=== PATIENT | male | born 1965 | race Caucasian/White ===

== ENCOUNTER → 2018-02-07 07:59 | Outpatient (CLI) | payer OTHER, SELFPAY ==
[2017-12-11 15:38] VITALS: BMI 34.8
[2018-02-07 09:21] LABS: Absolute Neutrophil Count 3.7 X10^3/uL (2.0-7.7); Basophil# 0.01 X10^3/uL; Basophil% 0.1 % (0-1); Eosinophil# 0.17 X10^3/uL; Eosinophils% 2.5 % (0-5); Hematocrit 46.4 % (40-54); Hemoglobin 16.2 g/dl (13.0-16.5); Lymphocyte % 32.6 % (19-41); Mean Corp Hgb Conc 34.9 g/gl (32-36); Mean Corpuscular Volume 88.9 fL (80-94); Mean Platelet Vol. 10.8 fl (6.2-12.0); Monocyte# 0.64 X10^3/uL; Monocyte% 9.5 % (0-10); Platelet Count 179 K/mm3 (150-450); RBC Distribution Width CV 12.1 % (11.6-14.6); RBC Distribution Width SD 39.3 fl (35.1-43.9); Red Blood Count 5.22 M/mm3 (4.6-6.2); White Blood Count 6.7 K/mm3 (4.4-11.0)
[2018-02-07 09:23] LABS: POSITIVE COUNT NO; POSITIVE DIFFERENTIAL NO; POSITIVE MORPHOLOGY NO
[2018-02-07 09:41] LABS: Microalbumin,Random Urine 29.7 mg/L (NO RANGE EST.); Microalbumin:Creatinine Ratio 22.3 mg/g CRE (<30 mg/g CRE)
[2018-02-07 09:51] LABS: Hemoglobin A1c 8.1 % (4.2-6.3)
[2018-02-07 09:54] LABS: AST(SGOT) 16 U/L (15-37); Alanine Aminotransfer ALT/SGPT 20 U/L (16-61); Albumin, Serum 3.7 g/dL (3.2-5.0); Alkaline Phosphatase 70 U/L (45-117); Anion Gap 7 (5-15); BUN 10 mg/dL (7-18); BUN/Creat Ratio 14.2 RATIO (10-20); Calcium,Total 8.4 mg/dL (8.5-10.1); Chloride 103 mmol/L (98-107); EST Glomerular Filtration Rate 124 mL/min (>60); Est Glom Filt Rate - Afr Amer 150 mL/min (>60); Globulin 3.6 g/dL (2.2-4.2); Glucose 178 mg/dL (74-106); Protein, Total 7.3 g/dL (6.4-8.2); Sodium Level 139 mmol/L (136-145); Thyroid Stim Hormone (TSH) 1.18 uIU/mL (0.358-3.74)
== END ==
PROVIDERS: Family Provider Family Medicine; PCP Family Medicine; Referring Provider Family Medicine; Visit Provider Family Medicine
DX: I25.10 Atherosclerotic heart disease of native coronary artery without angina pectoris (principal); E11.319 Type 2 diabetes mellitus with unspecified diabetic retinopathy without macular edema
CPT/HCPCS: 36415; 80053; 82043; 82570; 83036; 84403; 84443; 85025

== ENCOUNTER → 2018-04-03 10:45 | Outpatient (CLI) | payer OTHER, SELFPAY ==
--- NOTE | 2018-04-03 10:50 | US_ITS ---
STUDY: ABDOMINAL ULTRASOUND - RIGHT UPPER QUADRANT REASON FOR VISIT: Male, 52 years old. Elevated bilirubin. TECHNIQUE: Ultrasound evaluation of the right upper quadrant was performed with real-time and static crump-scale imaging. TECHNICAL QUALITY: Adequate. COMPARISON: None. FINDINGS: Liver: The liver measures 17.5 cm. There is coarsened echotexture with increased echogenicity consistent with fatty infiltration. The bile ducts are within normal limits. There is hepatic color flow. The direction of portal flow is hepatopetal. There is no demonstrated mass lesion. Gallbladder: Normal distended gallbladder. The gallbladder wall measures 3 mm. There is a negative sonographic Rogers's sign. There is no pericholecystic fluid. There are no gallstones. Common Bile Duct (C.B.D.): The common bile duct measures 3 mm. Pancreas: Normal size of the head, body and tail of the pancreas. There is normal echogenicity of the pancreas. There is no demonstrated pancreatic mass or cyst. Right Kidney: Normal size of the right kidney. The right kidney measures 11.4 cm. Normal renal cortex. The right cortex measures 2.1 cm. There is no demonstrated renal mass or cyst. There is no right hydronephrosis. US/Liver IMPRESSION: Fatty liver. Normal gallbladder. Electronically Signed: Jason Kim MD at 7:32 EST , Service support ,
== END ==
PROVIDERS: Family Provider Family Medicine; PCP Family Medicine; Referring Provider Family Medicine; Visit Provider Family Medicine
DX: K76.0 Fatty (change of) liver, not elsewhere classified (principal)
CPT/HCPCS: 76705

== ENCOUNTER → 2018-12-31 07:36 | Outpatient (CLI) | payer OTHER, SELFPAY ==
[2018-06-20 06:49] VITALS: BMI 34.9
--- NOTE | 2018-12-31 07:38 | ECHOCS_ITS ---
Reason For Study: Murmur Procedure This was a 2D Doppler, Color Flow transthoracic echocardiogram. The study was technically difficult. Contrast injection was performed. Parasternal [place] images taken from Subcostal window. Exam performed in department. Left Ventricle Normal LV size. Moderate concentric left ventricular hypertrophy. Left ventricular systolic function is normal. The estimated ejection fraction is 60 %. Transmitral doppler flow suggestive of impaired relaxation of left ventricle. No regional wall motion abnormalities noted. Right Ventricle Normal RV size. Normal systolic function. Atria Normal left atrium. Normal right atrium. No doppler evidence for ASD. Mitral Valve There is no mitral annular calcification. Normal mitral valve. Trivial mitral valve insufficiency. Tricuspid Valve Normal tricuspid valve. Trivial tricuspid valve insufficiency. Unable to estimate RV systolic pressure/pulmonary artery pressure due to technically difficult study. Aortic Valve The aortic valve is not well visualized. Mild focal aortic valve calcification. Moderate aortic stenosis. Pulmonic Valve The pulmonic valve is not well visualized. Great Vessels The aortic root is not well visualized. Pericardium/Pleural No pericardial effusion. Medication 22 gauge I.V. with prn adaptor inserted into right arm. Diluted definity 2ml given slow IV push to enhance endocardial definition. MMode/2D Measurements & Calculations LVIDd: 4.5 cm IVSd: 1.3 cm LVOT diam: 2.0 cm LVIDs: 3.3 cm LVPWd: 1.6 cm RVDd: 2.6 cm FS: 27.2 % LVOT area: 3.1 cm2 LA dimension: 3.8 cm LAV(MOD-bp): 38.9 ml LA A4 area: 16.0 cm2 LAV(MOD-bp) Indexed: 18.0 ml/m2 LAV(MOD-sp2): 37.5 ml LAV(MOD-sp4): 38.2 ml RA A4 area: 15.4 cm2 Time Measurements MV dec time: 0.25 sec Doppler Measurements & Calculations MV E max cyrus: 74.8 cm/sec Lat Peak E' Cyrus: 7.2 cm/sec Med Peak E' Cyrus: 5.0 cm/sec MV A max cyrus: 114.0 cm/sec E/E' lat: 10.3 E/E' med: 15.0 MV E/A: 0.66 MV V2 max: 123.3 cm/sec MV P1/2t max cyrus: 89.6 cm/sec Ao V2 max: 308.2 cm/sec MV max P.1 mmHg MV P1/2t: 119.8 msec Ao max P.0 mmHg MV V2 mean: 69.1 cm/sec MV dec slope: 219.0 cm/sec2 Ao V2 mean: 193.4 cm/sec MV mean P.2 mmHg Ao mean P.1 mmHg MV V2 VTI: 34.8 cm MVA(P1/2t): 1.8 cm2 Ao V2 VTI: 66.5 cm MVA(VTI): 1.9 cm2 YAMILE(I,D): 0.97 cm2 YAMILE(V,D): 0.87 cm2 LV V1 max: 86.7 cm/sec SV(LVOT): 64.8 ml PA V2 max: 99.2 cm/sec LV V1 max P.0 mmHg LV V1 mean P.5 mmHg LV V1 mean: 57.8 cm/sec LV V1 VTI: 20.9 cm Interpretation Summary The study was technically difficult. Contrast injection was performed. Left ventricular systolic function is normal. The estimated ejection fraction is 60 %. Moderate concentric left ventricular hypertrophy. Trivial mitral valve insufficiency. Trivial tricuspid valve insufficiency. Mild focal aortic valve calcification. Moderate aortic stenosis. Unable to estimate RV systolic pressure/pulmonary artery pressure due to technically difficult study. Transmitral doppler flow suggestive of impaired relaxation of left ventricle Ordering Physician: Feliciano Warren Referring Physician: Austin Lubin Performed By: Bulmaro Nam RCS
== END ==
PROVIDERS: Family Provider Family Medicine; PCP Family Medicine; Referring Provider Internal Medicine Cardiovascular Disease; Visit Provider Internal Medicine Cardiovascular Disease
DX: I25.10 Atherosclerotic heart disease of native coronary artery without angina pectoris (principal); I10 Essential (primary) hypertension; R01.1 Cardiac murmur, unspecified; Z98.61 Coronary angioplasty status
CPT/HCPCS: 93306; Q9957; A4216; C8929

== ENCOUNTER → 2019-08-11 17:10 | Outpatient (CLI) | payer OTHER, SELFPAY ==
[2019-08-11 17:10] VITALS: BMI 34.9
--- NOTE | 2019-08-11 17:14 | RAD_ITS ---
STUDY: X-RAY RIGHT FOOT, TOE REASON FOR EXAM: Male, 53 years old. DIABETIC ULCER TO 1ST TOE, STARTED 6 MONTHS AGO TECHNIQUE: 3 view(s) of the toe were obtained. COMPARISON: None. FINDINGS: Normal visualized metatarsus. Normal metatarsophalangeal (M.T.P) joint. Normal interphalangeal joints. Normal phalanges and interphalangeal joints. The soft tissue structures are unremarkable. RAD/Toe(s) Min 2 Views IMPRESSION: Normal x-ray of the toe. Electronically Signed: Ruslan Downs MD at 17:29 EDT , Service support ,
== END ==
PROVIDERS: PCP Family Medicine; Referring Provider Family Medicine; Visit Provider Family Medicine
DX: E11.621 Type 2 diabetes mellitus with foot ulcer (principal); L97.519 Non-pressure chronic ulcer of other part of right foot with unspecified severity
CPT/HCPCS: 73660

== ENCOUNTER → 2019-08-12 16:42 | Outpatient (CLI) | payer OTHER, SELFPAY ==
[2019-08-11 17:10] VITALS: BMI 34.9
[2019-08-12 17:40] LABS: Absolute Lymphocyte Count 2.07 X10^3/uL (0.83-4.51); Absolute Neutrophil Count 3.2 X10^3/uL (2.0-7.7); Basophil# 0.01 X10^3/uL; Basophil% 0.2 % (0-1); Eosinophil# 0.09 X10^3/uL; Eosinophils% 1.5 % (0-5); Hematocrit 42.7 % (40-54); Hemoglobin 14.5 g/dL (13.0-16.5); Lymphocyte # 2.07 X10^3/ul (4.0); Lymphocyte % 35.4 % (19-41); Mean Corpuscular Hgb 30.3 pg (27.0-32.0); Mean Corpuscular Volume 89.3 fL (80-94); Mean Platelet Vol. 11.2 fl (6.2-12.0); Monocyte# 0.52 X10^3/uL; Monocyte% 8.9 % (0-10); NRBC Flagged by Analyzer 0 % (0-5); Neutrophil # 3.15 X10^3/uL (2.7-7.7); Neutrophil % 53.8 % (47-70); Platelet Count 148 K/mm3 (150-450); RBC Distribution Width CV 12.1 % (11.6-14.6); RBC Distribution Width SD 39.5 fl (35.1-43.9); Red Blood Count 4.78 M/mm3 (4.6-6.2); White Blood Count 5.9 K/mm3 (4.4-11.0)
[2019-08-12 17:52] LABS: Erythrocyte Sedimentation Rate 10 mm/hr (0-20)
[2019-08-12 17:58] LABS: Vitamin D,25 Hydroxy 14.2 ng/mL
[2019-08-12 17:59] LABS: ALB/GLOB Ratio 0.9 RATIO (0.9-2.4); AST(SGOT) 13 U/L (15-37); Alanine Aminotransfer ALT/SGPT 21 U/L (16-61); Albumin, Serum 3.4 g/dL (3.2-5.0); Alkaline Phosphatase 80 U/L (45-117); Anion Gap 8 (5-15); BUN 16 mg/dL (7-18); BUN/Creat Ratio 18.7 RATIO (10-20); CRP 3.57 mg/L (0.0-3.0); Calcium,Total 8.9 mg/dL (8.5-10.1); Chloride 102 mmol/L (98-107); Creatinine, Serum 0.86 mg/dL (0.70-1.30); EST Glomerular Filtration Rate 98 mL/min (>60); Est Glom Filt Rate - Afr Amer 119 mL/min (>60); Globulin 3.6 g/dL (2.2-4.2); Glucose 242 mg/dL (74-106); Potassium 3.9 mmol/L (3.5-5.1); Sodium Level 136 mmol/L (136-145)
[2019-08-12 18:02] LABS: Hemoglobin A1c 10.6 % (3.8-5.6)
== END ==
PROVIDERS: PCP Family Medicine; Referring Provider Family Medicine; Visit Provider Family Medicine
DX: E11.621 Type 2 diabetes mellitus with foot ulcer (principal); L97.509 Non-pressure chronic ulcer of other part of unspecified foot with unspecified severity; E11.319 Type 2 diabetes mellitus with unspecified diabetic retinopathy without macular edema
CPT/HCPCS: 36415; 80053; 82306; 83036; 85025; 85652; 86140

== ENCOUNTER 2019-08-20 08:00 | Outpatient (RCR) | payer OTHER, SELFPAY ==
[2019-08-11 17:10] VITALS: BMI 34.9
[2019-08-13 08:34] VITALS: BP 178/94; PULSE 57; RESP 18; TEMP 36.2; BMI 34.9
--- NOTE | 2019-08-13 12:49 | HP.PCM_ITS ---
(1) Type 2 diabetes mellitus with diabetic polyneuropathy Status: Acute Code(s): E11.42 - Type 2 diabetes mellitus with diabetic polyneuropathy (2) Chronic ulcer of right foot with fat layer exposed Status: Chronic Code(s): L97.512 - Non-pressure chronic ulcer of other part of right foot with fat layer exposed (3) Hallux limitus of right foot Status: Acute Code(s): M20.5X1 - Other deformities of toe(s) (acquired), right foot (4) Chronic malnutrition Status: Chronic Code(s): E46 - Unspecified protein-calorie malnutrition (5) Other specified peripheral vascular diseases Status: Suspected Code(s): I73.89 - Other specified peripheral vascular diseases (6) Venous insufficiency Status: Suspected Code(s): I87.2 - Venous insufficiency (chronic) (peripheral) (7) Bilateral lower extremity edema Status: Chronic Code(s): R60.0 - Localized edema History of Present Illness Date of Service: 08/13/19 Chief Complaint: Right great toe ulcer History of Wound: This 53-year-old male with multiple comorbidities including diabetes and hypertension presents for chronic right great toe ulcer. The onset of his ulcer is over 1 month. He denies trauma. He denies claudication. He does have some rest paresthesias. He denies odor or redness. He denies fever, chill, nausea, vomiting. Past Medical History Past Medical History: Chronic Problems (Last Reviewed 01/22/19 @ 16:08 by Gege Mclean) Chronic ulcer of right foot with fat layer exposed (Chronic) Chronic malnutrition (Chronic) Bilateral lower extremity edema (Chronic) Presence of stent in coronary artery (Chronic ~04/01/07) PTCA/BMS to proc CX and PTCA/BMS to prox LAD 04/01/07 Type 2 diabetes mellitus (Chronic) Atherosclerotic heart disease of [place] coronary artery without angina pectoris (Chronic) Pure hypercholesterolemia (Chronic) Essential hypertension (Chronic) Long-term use of high-risk medication (Chronic) JOSEPH (obstructive sleep apnea) (Chronic) Snoring (Chronic) Surgical History: - - Cardiac stent placement x2 Allergies/Adverse Reactions: Allergies Penicillins Adverse Reaction (Severe, Verified 06/17/19 06:35) Unknown Home Medications: Ambulatory Orders Medication Instructions Recorded aspirin 81 mg tablet,delayed 81 mg PO QDAY 03/08/17 release glipizide 5 mg tablet 5 mg PO BID 03/08/17 lisinopril 5 mg tablet 5 mg PO QDAY #90 tab 09/21/17 vitamins A,C,A-pjko-beumyx 7,160 2 tab PO BID 12/11/17 unit-113 mg-100 unit tablet pravastatin 40 mg tablet 40 mg PO QHS #30 tab 08/13/18 metoprolol tartrate 50 mg tablet 50 mg PO BID #180 tab 09/20/18 empagliflozin 10 mg tablet 10 mg PO DAILY 01/22/19 metformin 1,000 mg tablet 1,000 mg PO BID 30 Days #60 tab 01/22/19 pioglitazone 15 mg tablet 15 mg PO DAILY 01/22/19 Glimepiride 2 mg PO 08/13/19 Smoking Status: Never smoker Tobacco Use: Non-smoker Drugs: None Review of Systems Constitutional: Denies: Chills, Fever, Fatigue HEENT: Denies: Sore Throat Cardiovascular: Denies: Chest Pain, Claudication Respiratory: Denies: Cough, Shortness of Breath Gastrointestinal: Denies: Nausea, Vomiting Neurological: Denies: Incoordination, Tingling - Physical Exam Vital Signs Temp Pulse Resp BP 97.2 F L 57 L 18 178/94 H 08/13/19 08:34 08/13/19 08:34 08/13/19 08:34 08/13/19 08:34 General: Alert, Oriented x3, Cooperative Extremities: No cyanosis, Capillary Refill Less than 3 Seconds, No Calf Tenderness, Diminished Peripheral Pulses, Edema Skin: Ulcer/ Wound - The ulcer to the plantar hallux has a base of granular and fibrous tissue. The peripheral callus is noted in the adjacent skin is hairless and atrophic. There is no purulence, erythema, streaking, odor, infection. There is no deep probing or bone exposure Wound Measurements and Assessment WC - Nurse 1 - General Ulcer Measurement Start: 08/13/19 08:34 Freq: Status: Active Protocol: Activity Type Activity Date Activity User E-Sign Co-Sign Detail Recorded Client Recorded Date Recorded By Document 08/13/19 08:34 DL [id number] 08/13/19 08:44 DL 08/13/19 08:34 Wound Center Nurse 1 [Ulcer Assessment] #1 R Grt Toe -Current Size (cm) - Length 0.7 -Current Size (cm) - Width 0.4 -Current Size (cm) - Depth 0.3 -Total Square Cm 0.28 -Photo Taken Yes -Undermining/Tunneling Starts (O' 6 clock) -Undermining/Tunneling Ends (O'clock) 12 -Maximum Distance (cm) 0.3 -Exudate Amt Small -Exudate Type Sanguineous -Wound Margin Thickened -Granulation Amt Small (1-33%) -Granulation Quality Red -Necrosis Amt Small (1-33%) -Necrotic Tissue Type Adherent Slough -Structure Exposed N/A -Texture (Lisa-wound Skin Appearance) Callus -Moisture (Lisa-wound Skin Appearance Dry/Scaly ) -Color (Lisa-wound Skin Appearance) No Abnormality -Temperature (Lisa-wound Skin No Abnormality Appearance) (Pt Warm) -Tenderness on Palpation (Lisa-wound No Skin Appearance) -Ulcer Cleansing Rinsed/ Irrigated with Saline -Foul Odor after Cleansing No -Anesthetic Used 4% Lidocaine Solution WC - Nurse 2 - General Ulcer CM Notes Start: 08/13/19 08:34 Freq: Status: Active Protocol: Activity Type Activity Date Activity User E-Sign Co-Sign Detail Recorded Client Recorded Date Recorded By Document 08/13/19 09:14 GEOVANI [id number] 08/13/19 09:20 GEOVANI 08/13/19 09:14 Wound Center Nurse 2 [Procedure/Treatment] -Time 09:14 -Correct Patient Yes -Correct Side, Site, Position Yes -Correct Procedure Yes -Procedure Performed Yes -Type of Procedure Debridement -Clinical Debridement Subcutaneous -Post Debridement Size (cm) - Length 0.8 -Post Debridement Size (cm) - Width 1.5 -Post Debridement Size (cm) - Depth 0.2 -Total Square Cm 1.20 -Wound/Ulcer Outcome Not Healed -Ulcer Cleansing Rinsed/ Irrigated with Saline -Foul Odor after Cleansing No -Bioengineered Tissue No -Bleeding Controlled with Pressure -Offloading Yes -Type of Offloading Surgical Shoe -Treatment Response Procedure Tolerated Well [See Physician Procedure note for Specifics] Pain Scale: 0-10 Numeric [Pain] -Is Patient Pain Free? Yes Musculoskeletal: No Tenderness to Palpation of Joints or Extremities, Muscle Wasting, - - Full muscle strength of the ankle and digits. No pain or crepitus with passive manipulation of the hallux and phalangeal joint or metatarsophalang eal joint. No bogginess or fluctuance. Compartments remain soft to right lower extremity. There is decreased flow to first metatarsal phalangeal joint range of motion consistent hallux limitus noted Neurological: - - Lack of epicritic sensation light touch consistent with neuropathy status Psych/Mental Status: Normal Affect, Appropriate Debridement Note Post-Debridement Measurements/Treatment WC - Nurse 2 - General Ulcer CM Notes Start: 08/13/19 08:34 Freq: Status: Active Protocol: Activity Type Activity Date Activity User E-Sign Co-Sign Detail Recorded Client Recorded Date Recorded By Document 08/13/19 09:14 [id number] 08/13/19 09:20 GEOVANI 08/13/19 09:14 Wound Center Nurse 2 #1 R Grt Toe -Time 09:14 -Correct Patient Yes -Correct Side, Site, Position Yes -Correct Procedure Yes -Procedure Performed Yes -Type of Procedure Debridement -Clinical Debridement Subcutaneous -Post Debridement Size (cm) - Length 0.8 -Post Debridement Size (cm) - Width 1.5 -Post Debridement Size (cm) - Depth 0.2 -Total Square Cm 1.20 -Wound/Ulcer Outcome Not Healed -Ulcer Cleansing Rinsed/ Irrigated with Saline -Foul Odor after Cleansing No -Bioengineered Tissue No -Bleeding Controlled with Pressure -Offloading Yes -Type of Offloading Surgical Shoe -Treatment Response Procedure Tolerated Well Pain Scale: 0-10 Numeric Is Patient Pain Free? Yes Wound debrided: plantar hallux Laterality: Right Wound Grade/Stage: grade 1 Type of Debridement: Excisional debridement Anesthesia Used: 5% Lidocaine Gel Depth: in the subcutaneous layer Percentage of wound debrided: 100 Tissue Removed: fibrous, devitalized subcutaneous, biofilm, slough Severity: Fat Layer Exposed Amount of bleeding with debridement: Mild Bleeding Controlled with: Pressure Patient tolerated procedure well Assessment/Plan Assessment: Right hallux ulcer with fat layer exposed, abdi grade 1, no infection. Hallux limitus. Diabetes with neuropathy Plan: I reviewed and discussed his case. Subcutaneous excisional debridement was performed as noted in the clinical panel. He was reassured no local signs infection are noted. I recommend he change dressing daily with Bitstripsel Ag. To wash with soap and water and to avoid soaking activities. I recommend baseline screening to rule out any deeper injury or infection. He foot x-ray was reviewed without any gross abnormalities, fracture, dislocation, soft tissue emphysema, gross edema, or foreign body. His labs from 519 were reviewed without gross abnormality to the CBC or CMP. His white blood cell count was 5.9 and albumin is 3.4. He did have significant abnormality with hemoglobin A1c level which was 10.6%. A surgical shoe was fitted and dispensed and was advised to place weight on his heel to prevent ulcer pressure. It is noted he is a nontobacco user and I recommend he does not start any tobacco products at this time. A nutrition referral was also provided for diabetic management and healing recommendations. To optimize healing by better controlling his glucose levels and by taking nutritional supplementation. Darian was offered. I recommend single-layer Tubigrip to better manage his edema. Venous Doppler with reflux evaluation was ordered to look for any venous insufficiency. A noninvasive arterial study was also ordered to assess for any disease process. He was reassured no local signs of infection are noted and antibiotics not recommended. I recommend he follows up with the wound healing center 1 week or call sooner if he has any questions or concerns.
[2019-08-20 08:18] VITALS: BP 156/88; PULSE 60; RESP 18; TEMP 36.6; BMI 34.9
--- NOTE | 2019-08-20 09:03 | PCM.WC.PN ---
(1) Chronic ulcer of right foot with fat layer exposed Status: Chronic Current Visit: Yes Code(s): L97.512 - Non-pressure chronic ulcer of other part of right foot with fat layer exposed (2) Type 2 diabetes mellitus with diabetic polyneuropathy Status: Acute Current Visit: Yes Code(s): E11.42 - Type 2 diabetes mellitus with diabetic polyneuropathy (3) Hallux limitus of right foot Status: Acute Current Visit: Yes Code(s): M20.5X1 - Other deformities of toe(s) (acquired), right foot (4) Chronic malnutrition Status: Chronic Current Visit: Yes Code(s): E46 - Unspecified protein-calorie malnutrition (5) Other specified peripheral vascular diseases Status: Suspected Current Visit: Yes Code(s): I73.89 - Other specified peripheral vascular diseases (6) Venous insufficiency Status: Suspected Current Visit: Yes Code(s): I87.2 - Venous insufficiency (chronic) (peripheral) (7) Bilateral lower extremity edema Status: Chronic Current Visit: Yes Code(s): R60.0 - Localized edema Type of Wound Date of Service: 08/20/19 Chief Complaint: Right great toe ulcer History of Wound: This 54-year-old male with multiple comorbidities including diabetes and hypertension presents for chronic right great toe ulcer. He does have some rest paresthesias. He denies odor or redness. He denies fever, chill, nausea, vomiting. He is scheduled to have his noninvasive vascular study completed on August 24 in his nutrition consultation on September 01. He continues to offload with his cam walker boot. He is working with his employer in regards to work modifications versus time off of work. Progress of Wound: improving - Physical Exam Vital Signs Temp Pulse Resp BP 97.8 F 60 18 156/88 H 08/20/19 08:18 08/20/19 08:18 08/20/19 08:18 08/20/19 08:18 General: Alert, Oriented x3, Cooperative, No apparent distress Extremities: No cyanosis, Capillary Refill Less than 3 Seconds, No Calf Tenderness, Diminished Peripheral Pulses, Edema Skin: Ulcer/ Wound - No purulence, erythema, streaking, odor, infection. There is peripheral epithelialization noted and the base is granular Wound Measurements and Assessment WC - Nurse 1 - General Ulcer Measurement Start: 05/20/20 08:34 Freq: Status: Active Protocol: Activity Type Activity Date Activity User E-Sign Co-Sign Detail Recorded Client Recorded Date Recorded By Document 08/20/19 08:18 [id number] 08/20/19 08:24 DV 08/20/19 08:18 Wound Center Nurse 1 [Ulcer Assessment] #1 R Grt Toe -Combined with other wound No -Current Size (cm) - Length 0.7 -Current Size (cm) - Width 0.4 -Current Size (cm) - Depth 0.2 -Total Square Cm 0.28 -Photo Taken No -Epithelialization Small 1-33% -Tunneling No -Undermining/Tunneling No -Circular Undermining No -Classification - Thickness Full Thickness without Exposed Support Structure -Exudate Amt Medium -Exudate Type Serous -Wound Margin Distinct, Outline Attached -Granulation Amt Small (1-33%) -Granulation Quality Pale,[place] -Slough/Fibrin Yes -Necrosis Amt Medium (34-66%) -Necrotic Tissue Type Adherent Slough -Structure Exposed None/Limited to Skin Breakdown -Texture (Lisa-wound Skin Appearance) No Abnormality, Assessed -Moisture (Lisa-wound Skin Appearance No Abnormality, ) Assessed -Color (Lisa-wound Skin Appearance) No Abnormality, Assessed -Tenderness on Palpation (Lisa-wound No Skin Appearance) -Ulcer Cleansing Rinsed/ Irrigated with Saline -Foul Odor after Cleansing No -Anesthetic Used 4% Lidocaine Solution WC - Nurse 2 - General Ulcer CM Notes Start: 08/13/19 08:34 Freq: Status: Active Protocol: Activity Type Activity Date Activity User E-Sign Co-Sign Detail Recorded Client Recorded Date Recorded By Document 08/20/19 08:37 [id number] 08/20/19 08:38 08/20/19 08:37 Wound Center Nurse 2 [Procedure/Treatment] -Time 08:38 -Correct Patient Yes -Correct Side, Site, Position Yes -Correct Procedure Yes -Procedure Performed Yes -Type of Procedure Debridement -Clinical Debridement Subcutaneous -Post Debridement Size (cm) - Length 0.9 -Post Debridement Size (cm) - Width 0.5 -Post Debridement Size (cm) - Depth 0.2 -Total Square Cm 0.45 -Wound/Ulcer Outcome Not Healed -Ulcer Cleansing Rinsed/ Irrigated with Saline -Foul Odor after Cleansing No -Bioengineered Tissue No -Bleeding Controlled with Pressure -Offloading Yes -Type of Offloading Camwalker -Treatment Response Procedure Tolerated Well [See Physician Procedure note for Specifics] Pain Scale: 0-10 Numeric [Pain] -Is Patient Pain Free? Yes Musculoskeletal: No Tenderness to Palpation of Joints or Extremities, Muscle Wasting, - - Limited first metatarsophalangeal joint range of motion Neurological: - - Lack of epicritic sensation light touch is consistent with neuropathy status Psych/Mental Status: Normal Affect, Appropriate Debridement Note Post-Debridement Measurements/Treatment WC - Nurse 2 - General Ulcer CM Notes Start: 08/13/19 08:34 Freq: Status: Active Protocol: Activity Type Activity Date Activity User E-Sign Co-Sign Detail Recorded Client Recorded Date Recorded By Document 08/13/19 09:14 [id number] 08/13/19 09:20 Document 08/20/19 08:37 [id number] 08/20/19 08:38 08/13/19 08/20/19 09:14 08:37 Wound Center Nurse 2 #1 R Grt Toe -Time 09:14 08:38 -Correct Patient Yes Yes -Correct Side, Site, Position Yes Yes -Correct Procedure Yes Yes -Procedure Performed Yes Yes -Type of Procedure Debridement Debridement -Clinical Debridement Subcutaneous Subcutaneous -Post Debridement Size (cm) - Length 0.8 0.9 -Post Debridement Size (cm) - Width 1.5 0.5 -Post Debridement Size (cm) - Depth 0.2 0.2 -Total Square Cm 1.20 0.45 -Wound/Ulcer Outcome Not Healed Not Healed -Ulcer Cleansing Rinsed/ Rinsed/ Irrigated with Irrigated with Saline Saline -Foul Odor after Cleansing No No -Bioengineered Tissue No No -Bleeding Controlled with Pressure Pressure -Offloading Yes Yes -Type of Offloading Surgical Shoe Camwalker -Treatment Response Procedure Procedure Tolerated Well Tolerated Well Pain Scale: 0-10 Numeric Is Patient Pain Free? Yes Yes Wound debrided: plantar medial hallux Laterality: Right Wound Grade/Stage: grade 1 Type of Debridement: Excisional debridement Anesthesia Used: 5% Lidocaine Gel Depth: in the subcutaneous layer Percentage of wound debrided: 100 Instrument Used: #15 blade Tissue Removed: fibrous, devitalized subcutaneous, biofilm, slough Severity: Fat Layer Exposed Amount of bleeding with debridement: Mild Bleeding Controlled with: Pressure Patient tolerated procedure well Assessment/Plan Active Problems (Last Reviewed 01/22/19 @ 16:08 by Gege Mclean) Type 2 diabetes mellitus with diabetic polyneuropathy (Acute) Chronic ulcer of right foot with fat layer exposed (Chronic) Hallux limitus of right foot (Acute) Chronic malnutrition (Chronic) Bilateral lower extremity edema (Chronic) Assessment: Right hallux ulcer with fat layer exposed, abdi grade 1, no infection. Hallux limitus. Diabetes with neuropathy Plan: I reviewed and discussed his case. Subcutaneous excisional debridement was performed as noted in the clinical panel. He was reassured no local signs infection are noted. I recommend he change dressing daily with Nephosity Ag. To wash with soap and water and to avoid soaking activities. I recommend baseline screening to rule out any deeper injury or infection. He foot x-ray was reviewed without any gross abnormalities, fracture, dislocation, soft tissue emphysema, gross edema, or foreign body. His labs from 519 were reviewed without gross abnormality to the CBC or CMP. His white blood cell count was 5.9 and albumin is 3.4. He did have significant abnormality with hemoglobin A1c level which was 10.6%. A surgical shoe was fitted and dispensed and was advised to place weight on his heel to prevent ulcer pressure. It is noted he is a nontobacco user and I recommend he does not start any tobacco products at this time. A nutrition referral was also provided for diabetic management and healing recommendations. He is scheduled for September 01. To optimize healing by better controlling his glucose levels and by taking nutritional supplementation. Darian was offered. I recommend single-layer Tubigrip to better manage his edema. Venous Doppler with reflux evaluation was ordered to look for any venous insufficiency. A noninvasive arterial study was also ordered to assess for any disease process. He is scheduled for August 24 for both exams. He was reassured no local signs of infection are noted and antibiotics not recommended. I recommend he follows up with the wound healing center 1 week or call sooner if he has any questions or concerns.
== END 2019-08-24 23:59 ==
LOC: WC 08:00
PROVIDERS: PCP Family Medicine; Visit Provider Podiatrist
DX: E11.621 Type 2 diabetes mellitus with foot ulcer (principal); L97.512 Non-pressure chronic ulcer of other part of right foot with fat layer exposed; E11.42 Type 2 diabetes mellitus with diabetic polyneuropathy; M20.5X1 Other deformities of toe(s) (acquired), right foot; E46 Unspecified protein-calorie malnutrition; E11.51 Type 2 diabetes mellitus with diabetic peripheral angiopathy without gangrene; I87.2 Venous insufficiency (chronic) (peripheral); R60.0 Localized edema; I10 Essential (primary) hypertension; I25.10 Atherosclerotic heart disease of native coronary artery without angina pectoris; G47.33 Obstructive sleep apnea (adult) (pediatric); E78.00 Pure hypercholesterolemia, unspecified; Z95.5 Presence of coronary angioplasty implant and graft; Z79.82 Long term (current) use of aspirin; Z79.84 Long term (current) use of oral hypoglycemic drugs; Z79.899 Other long term (current) drug therapy
CPT/HCPCS: 11042; 99213; G0463

== ENCOUNTER 2019-09-10 08:00 | Outpatient (RCR) | payer OTHER, SELFPAY ==
[2019-08-25 00:35] VITALS: BP 156/88; PULSE 60; RESP 18; TEMP 36.6
[2019-08-27 08:25] VITALS: BP 191/90; PULSE 56; RESP 16; BMI 34.9
--- NOTE | 2019-08-27 09:20 | PN.PCM_ITS ---
(1) Type 2 diabetes mellitus with diabetic polyneuropathy Status: Acute Current Visit: Yes Code(s): E11.42 - Type 2 diabetes mellitus with diabetic polyneuropathy (2) Chronic ulcer of right foot with fat layer exposed Status: Chronic Current Visit: Yes Code(s): L97.512 - Non-pressure chronic ulcer of other part of right foot with fat layer exposed (3) Chronic malnutrition Status: Chronic Current Visit: Yes Code(s): E46 - Unspecified protein- calorie malnutrition Type of Wound Date of Service: 08/27/19 Chief Complaint: Right great toe ulcer History of Wound: This 54-year-old male with multiple comorbidities including diabetes and hypertension presents for chronic right great toe ulcer. He does have some rest paresthesias. He denies odor or redness. He denies fever, chill, nausea, vomiting. He was scheduled to have his noninvasive vascular study completed on August 24 in his nutrition consultation on September 01. He continues to offload with his cam walker boot. He canceled his noninvasive vascular studies because he relates he still has the pain $1500 into his deductible. He is not really clear where he is at in regards to meeting his deductible. Progress of Wound: improving - Physical Exam Vital Signs Temp Pulse Resp BP 97.8 F 56 L 16 191/90 H 08/25/19 00:35 08/27/19 08:25 08/27/19 08:25 08/27/19 08:25 General: Alert, Oriented x3, Cooperative, No apparent distress HEENT: Atraumatic Extremities: No cyanosis, Capillary Refill Less than 3 Seconds, No Calf Tenderness, Diminished Peripheral Pulses, Edema, - - Varicosities lower extremity. Doppler exam reveals weak biphasic DP, strong biphasic PT, and non- audible perforating peroneal. There is hair on the leg that extends to the mid leg level and there is also a skin tear to the dorsal midfoot of the right lower extremity Skin: Ulcer/ Wound - No purulence, erythema, string, odor, infection. The adjacent skin is hairless and atrophic Wound Measurements and Assessment WC - Nurse 1 - General Ulcer Measurement Start: 08/27/19 08:25 Freq: Status: Active Protocol: Activity Type Activity Date Activity User E-Sign Co-Sign Detail Recorded Client Recorded Date Recorded By Document 08/27/19 08:25 [facility] [id number] 08/27/19 08:32 [facility] 08/27/19 08:25 Wound Center Nurse 1 [Ulcer Assessment] #1 R Grt Toe -Combined with other wound No -Current Size (cm) - Length 0.8 -Current Size (cm) - Width 0.4 -Current Size (cm) - Depth 0.2 -Total Square Cm 0.32 -Photo Taken No -Epithelialization None Present -Tunneling No -Undermining/Tunneling No -Circular Undermining No -Exudate Amt Small -Exudate Type Serosanguineous -Wound Margin Flat & Intact -Granulation Amt Large (67-100%) -Granulation Quality Red -Slough/Fibrin Yes -Necrosis Amt Small (1-33%) -Necrotic Tissue Type Adherent Slough -Texture (Lisa-wound Skin Appearance) Assessed,Callus ,Scarring -Moisture (Lisa-wound Skin Appearance Assessed,Dry/ ) Scaly -Color (Lisa-wound Skin Appearance) Assessed -Temperature (Lisa-wound Skin No Abnormality Appearance) (Pt Warm) -Tenderness on Palpation (Lisa-wound No Skin Appearance) -Ulcer Cleansing Rinsed/ Irrigated with Saline -Foul Odor after Cleansing No -Anesthetic Used 5% Lidocaine Gel [Edema Assessment] -Lower Limb Edema Present Yes -Right Calf (cm) 38.9 -Right Ankle (cm) 22.5 Musculoskeletal: No Tenderness to Palpation of Joints or Extremities, Muscle Wasting Neurological: - - Lack of epicritic sensation light touch is consistent with neuropathy status Psych/Mental Status: Normal Affect, Appropriate Debridement Note Wound debrided: hallux Laterality: Right Wound Grade/Stage: grade 1 Type of Debridement: Excisional debridement Anesthesia Used: 5% Lidocaine Gel Depth: in the subcutaneous layer Percentage of wound debrided: 100 Instrument Used: #15 blade Tissue Removed: fibrous, devitalized subcutaneous, biofilm, slough Severity: Fat Layer Exposed Amount of bleeding with debridement: Mild Bleeding Controlled with: Pressure Patient tolerated procedure well Assessment/Plan Active Problems (Last Reviewed 01/22/19 @ 16:08 by Gege Mclean) Type 2 diabetes mellitus with diabetic polyneuropathy (Acute) Chronic ulcer of right foot with fat layer exposed (Chronic) Chronic malnutrition (Chronic) Assessment: Right hallux ulcer with fat layer exposed, abdi grade 1, no infection. Hallux limitus. Diabetes with neuropathy Plan: I reviewed and discussed his case. Subcutaneous excisional debridement was performed as noted in the clinical panel. He was reassured no local signs infection are noted. I recommend he change dressing daily with Aquacel Ag. To wash with soap and water and to avoid soaking activities. I recommend baseline screening to rule out any deeper injury or infection. He foot x-ray was reviewed without any gross abnormalities, fracture, dislocation, soft tissue emphysema, gross edema, or foreign body. His labs from 08/12/2019 were reviewed without gross abnormality to the CBC or CMP. His white blood cell count was 5.9 and albumin is 3.4. He did have significant abnormality with hemoglobin A1c l [facility] which was 10.6%. A surgical shoe was fitted and dispensed and was advised to place weight on his heel to prevent ulcer pressure. It is noted he is a nontobacco user and I recommend he does not start any tobacco products at this time. A nutrition referral was also provided for diabetic management and healing recommendations. He is scheduled for September 01. To optimize healing by better controlling his glucose levels and by taking nutritional supplementation. Darian was offered and a prescription was provided today. Samples were provided. I recommend single-layer Tubigrip to better manage his edema. Venous Doppler with reflux evaluation was ordered to look for any venous insufficiency. A noninvasive arterial study was also ordered to assess for any disease process. He was advised to reschedule his noninvasive vascular studies so we can determine if he has adequate perfusion to the lower extremity. His Doppler results were reviewed with him today. I also recommend he follows up with his nutrition referral. I also encouraged him to call financial services to see where he is truly iron regards to meeting his deductible. He relates he has not received any bills from the hospital yet. he was reassured no local signs of infection are noted and antibiotics not recommended. I recommend he follows up with the wound healing center 1 week or call sooner if he has any questions or concerns.
[2019-09-03 08:42] VITALS: BP 161/87; PULSE 67; RESP 18; TEMP 35.6; BMI 34.9
[2019-09-10 08:11] VITALS: RESP 20; TEMP 35.9; BMI 34.9
--- NOTE | 2019-09-10 08:55 | PN.PCM_ITS ---
(1) Type 2 diabetes mellitus with diabetic polyneuropathy Status: Acute Current Visit: Yes Code(s): E11.42 - Type 2 diabetes mellitus with diabetic polyneuropathy (2) Chronic ulcer of right foot with fat layer exposed Status: Chronic Current Visit: Yes Code(s): L97.512 - Non-pressure chronic ulcer of other part of right foot with fat layer exposed (3) Chronic malnutrition Status: Chronic Current Visit: Yes Code(s): E46 - Unspecified protein- calorie malnutrition Type of Wound Date of Service: 09/10/19 Chief Complaint: Right great toe ulcer History of Wound: This 54-year-old male with multiple comorbidities including diabetes and hypertension presents for chronic right great toe ulcer. He does have some rest paresthesias. He denies odor or redness. He denies fever, chill, nausea, vomiting. He was scheduled to have his noninvasive vascular study completed on August 24 in his nutrition consultation on September 01. He admits he does not wear the cam walker at all times. He has been provided with some r ecommendations from nutritional services and reports he is mainly focusing on portion control and eating chicken. Progress of Wound: improving - Physical Exam Vital Signs Temp Pulse Resp BP 96.7 F L 67 20 H 161/87 H 09/10/19 08:11 09/03/19 08:42 09/10/19 08:11 09/03/19 08:42 General: Alert, Oriented x3, Cooperative, No apparent distress HEENT: Atraumatic Extremities: No cyanosis, Capillary Refill Less than 3 Seconds, No Calf Tenderness, Diminished Peripheral Pulses, Edema Skin: Ulcer/ Wound - No purulence, erythema, streaking, odor, infection. No deep probing. The adjacent skin is hairless and atrophic Wound Measurements and Assessment WC - Nurse 1 - General Ulcer Measurement Start: 08/27/19 08:25 Freq: Status: Active Protocol: Activity Type Activity Date Activity User E-Sign Co-Sign Detail Recorded Client Recorded Date Recorded By Document 09/10/19 08:11 DL [id number] 09/10/19 08:16 DL 09/10/19 08:11 Wound Center Nurse 1 [Ulcer Assessment] #1 R Grt Toe -Current Size (cm) - Length 0.8 -Current Size (cm) - Width 0.6 -Current Size (cm) - Depth 0.2 -Total Square Cm 0.48 -Photo Taken No -Exudate Amt None Present -Wound Margin Thickened -Granulation Amt Small (1-33%) -Granulation Quality [place] -Necrosis Amt Small (1-33%) -Necrotic Tissue Type Adherent Slough -Structure Exposed N/A -Texture (Lisa-wound Skin Appearance) Callus -Moisture (Lisa-wound Skin Appearance Dry/Scaly ) -Color (Lisa-wound Skin Appearance) No Abnormality -Temperature (Lisa-wound Skin No Abnormality Appearance) (Pt Warm) -Tenderness on Palpation (Lisa-wound No Skin Appearance) -Ulcer Cleansing Rinsed/ Irrigated with Saline -Foul Odor after Cleansing No -Anesthetic Used 4% Lidocaine Solution [Edema Assessment] -Right Calf (cm) 37.5 -Right Ankle (cm) 22.5 WC - Nurse 2 - General Ulcer CM Notes Start: 08/27/19 08:25 Freq: Status: Active Protocol: Activity Type Activity Date Activity User E-Sign Co-Sign Detail Recorded Client Recorded Date Recorded By Document 09/10/19 08:26 GEOVANI [id number] 09/10/19 08:28 GEOVANI 09/10/19 08:26 Wound Center Nurse 2 [Procedure/Treatment] #1 R Grt Toe -Time 08:26 -Correct Patient Yes -Correct Side, Site, Position Yes -Correct Procedure Yes -Procedure Performed Yes -Type of Procedure Debridement -Clinical Debridement Subcutaneous -Post Debridement Size (cm) - Length 0.8 -Post Debridement Size (cm) - Width 0.6 -Post Debridement Size (cm) - Depth 0.2 -Total Square Cm 0.48 -Wound/Ulcer Outcome Not Healed -Ulcer Cleansing Rinsed/ Irrigated with Saline -Foul Odor after Cleansing No -Bioengineered Tissue No -Bleeding Controlled with Pressure -Offloading Yes -Type of Offloading Camwalker -Treatment Response Procedure Tolerated Well [See Physician Procedure note for Specifics] Pain Scale: 0-10 Numeric [Pain] -Is Patient Pain Free? Yes Musculoskeletal: No Tenderness to Palpation of Joints or Extremities, Muscle Wasting, - - Decrease noted first metatarsophalangeal joint range of motion with this with hallux limitus Neurological: - - Lack of epicritic sensation light touch is consistent with neuropathy status Psych/Mental Status: Normal Affect, Appropriate Debridement Note Post-Debridement Measurements/Treatment WC - Nurse 2 - General Ulcer CM Notes Start: 08/27/19 08:25 Freq: Status: Active Protocol: Activity Type Activity Date Activity User E-Sign Co-Sign Detail Recorded Client Recorded Date Recorded By Document 08/27/19 09:45 PL [id number] 08/27/19 09:46 PL Document 09/03/19 09:00 [id number] 09/03/19 09:01 JF Document 09/10/19 08:26 JF [id number] 09/10/19 08:28 08/27/19 09/03/19 09/10/19 09:45 09:00 08:26 Wound Center Nurse 2 #1 R Grt Toe -Time 08:45 09:00 08:26 -Correct Patient Yes Yes Yes -Correct Side, Site, Position Yes Yes Yes -Correct Procedure Yes Yes Yes -Procedure Performed Yes Yes Yes -Type of Procedure Debridement Debridement Debridement -Clinical Debridement Subcutaneous Subcutaneous Subcutaneous -Post Debridement Size (cm) - Length 0.9 1.0 0.8 -Post Debridement Size (cm) - Width 0.5 0.6 0.6 -Post Debridement Size (cm) - Depth 0.3 0.2 0.2 -Total Square Cm 0.45 0.60 0.48 -Wound/Ulcer Outcome Not Healed Not Healed Not Healed -Ulcer Cleansing Rinsed/ Rinsed/ Rinsed/ Irrigated with Irrigated with Irrigated with Saline Saline Saline -Foul Odor after Cleansing No No No -Bioengineered Tissue No No -Bleeding Controlled with Pressure Pressure Pressure -Offloading Yes Yes -Type of Offloading Camwalker Camwalker -Treatment Response Procedure Procedure Procedure Tolerated Well Tolerated Well Tolerated Well Pain Scale: 0-10 Numeric Is Patient Pain Free? Yes Yes Yes Wound debrided: plantar hallux Laterality: Right Wound Grade/Stage: grade 1 Type of Debridement: Excisional debridement Anesthesia Used: 5% Lidocaine Gel Depth: in the subcutaneous layer Percentage of wound debrided: 100 Instrument Used: #15 blade Tissue Removed: fibrous, devitalized subcutaneous, biofilm, slough Severity: Fat Layer Exposed Amount of bleeding with debridement: Mild Bleeding Controlled with: Pressure Patient tolerated procedure well Assessment/Plan Active Problems (Last Reviewed 01/22/19 @ 16:08 by Gege Mclean) Type 2 diabetes mellitus with diabetic polyneuropathy (Acute) Chronic ulcer of right foot with fat layer exposed (Chronic) Chronic malnutrition (Chronic) Assessment: Right hallux ulcer with fat layer exposed, abdi grade 1, no infect ion. Hallux limitus. Diabetes with neuropathy Plan: I reviewed and discussed his case. Subcutaneous excisional debridement was performed as noted in the clinical panel. He was reassured no local signs infection are noted. I recommend he change dressing daily with Aquacel Ag. To wash with soap and water and to avoid soaking activities. I recommend baseline screening to rule out any deeper injury or infection. He foot x-ray was reviewed without any gross abnormalities, fracture, dislocation, soft tissue emphysema, gross edema, or foreign body. His labs from 08/12/2019 were reviewed without gross abnormality to the CBC or CMP. His white blood cell count was 5.9 and albumin is 3.4. He did have significant abnormality with hemoglobin A1c level which was 10.6%. A surgical shoe and cam walker was fitted and dispensed and was advised to place weight on his heel to prevent ulcer pressure. Understands he cannot wear the cam walker while driving. It appears he is not 100% compliant with a cam walker at other times of the day and there has been continued delays in healing. I recommend revisiting improved offloading techniques throughout the day. It is noted he is a nontobacco user and I recommend he does not start any tobacco products at this time. A nutrition referral was also provided. He has attended the session and is already making some modifications. To optimize healing by better controlling his glucose levels and by taking nutritional supplementation. Darian was offered and a prescription was provided today. Samples were provided. I recommend single- layer Tubigrip to better manage his edema. Venous Doppler with reflux evaluation was ordered to look for any venous insufficiency. A noninvasive arterial study was also ordered to assess for any disease process. He refuses to attend at this time due to cost concerns. I recommend he follows up with the wound healing center 1 week or call sooner if he has any questions or concerns.
== END 2019-09-23 23:59 ==
LOC: WC 08:00
PROVIDERS: PCP Family Medicine; Referring Provider Podiatrist; Visit Provider Podiatrist
DX: E11.621 Type 2 diabetes mellitus with foot ulcer (principal); L97.512 Non-pressure chronic ulcer of other part of right foot with fat layer exposed; E11.42 Type 2 diabetes mellitus with diabetic polyneuropathy; E46 Unspecified protein-calorie malnutrition; I10 Essential (primary) hypertension; M20.5X1 Other deformities of toe(s) (acquired), right foot
CPT/HCPCS: 11042

== ENCOUNTER 2019-09-17 15:30 | Outpatient (RCR) | payer OTHER, SELFPAY ==
[2019-09-03 08:42] VITALS: BMI 34.9
--- NOTE | 2019-09-03 09:18 | PCM.WC.PN ---
(1) Type 2 diabetes mellitus with diabetic polyneuropathy Status: Acute Code(s): E11.42 - Type 2 diabetes mellitus with diabetic polyneuropathy (2) Chronic ulcer of right foot with fat layer exposed Status: Chronic Code(s): L97.512 - Non-pressure chronic ulcer of other part of right foot with fat layer exposed (3) Hallux limitus of right foot Status: Acute Code(s): M20.5X1 - Other deformities of toe(s) (acquired), right foot Type of Wound Date of Service: 09/03/19 Chief Complaint: Right great toe ulcer History of Wound: This 54-year-old male with multiple comorbidities including diabetes and hypertension presents for chronic right great toe ulcer. He does have some rest paresthesias. He denies odor or redness. He denies fever, chill, nausea, vomiting. He was scheduled to have his noninvasive vascular study completed on August 24 in his nutrition consultation on September 01. He canceled the vascular study due to cost and refuses to reschedule at this time. He has been trying to use his cam walker to keep pressure off the ulcer site and is eager to return to work. Progress of Wound: Improving - Physical Exam General: Alert, Oriented x3, Cooperative, No apparent distress HEENT: Atraumatic Extremities: No cyanosis, Capillary Refill Less than 3 Seconds, No Calf Tenderness, Diminished Peripheral Pulses, Edema Skin: Ulcer/ Wound - No purulence, erythema, string, odor, infection. Peripheral epithelialization is noted Musculoskeletal: No Tenderness to Palpation of Joints or Extremities, Muscle Wasting, - - Decreased loaded first metatarsal phalangeal joint range of motion Neurological: - - Lack of normal sensation Psych/Mental Status: Normal Affect, Appropriate Debridement Note Wound debrided: plantar hallux Laterality: Right Wound Grade/Stage: grade 1 Type of Debridement: Excisional debridement Anesthesia Used: 5% Lidocaine Gel Depth: in the subcutaneous layer Percentage of wound debrided: 100 Instrument Used: #15 blade Tissue Removed: fibrous, devitalized subcutaneous, biofilm, slough Severity: Fat Layer Exposed Amount of bleeding with debridement: Mild Bleeding Controlled with: Pressure Patient tolerated procedure well Assessment/Plan Active Problems (Last Reviewed 01/22/19 @ 16:08 by Gege Mclean) Type 2 diabetes mellitus with diabetic polyneuropathy (Acute) Chronic ulcer of right foot with fat layer exposed (Chronic) Chronic malnutrition (Chronic) Assessment: Right hallux ulcer with fat layer exposed, abdi grade 1, no infection. Hallux limitus. Diabetes with neuropathy Plan: I reviewed and discussed his case. Subcutaneous excisional debridement was performed as noted in the clinical panel. He was reassured no local signs infection are noted. I recommend he change dressing daily with Aquacel Ag. To wash with soap and water and to avoid soaking activities. I recommend baseline screening to rule out any deeper injury or infection. He foot x-ray was reviewed without any gross abnormalities, fracture, dislocation, soft tissue emphysema, gross edema, or foreign body. His labs from 08/12/2019 were reviewed without gross abnormality to the CBC or CMP. His white blood cell count was 5.9 and albumin is 3.4. He did have significant abnormality with hemoglobin A1c level which was 10.6%. A surgical shoe was fitted and dispensed and was advised to place weight on his heel to prevent ulcer pressure. It is noted he is a nontobacco user and I recommend he does not start any tobacco products at this time. A nutrition referral was also provided. To optimize healing by better controlling his glucose levels and by taking nutritional supplementation. Darian was offered and a prescription was provided today. Samples were provided. I recommend single-layer Tubigrip to better manage his edema. Venous Doppler with reflux evaluation was ordered to look for any venous insufficiency. A noninvasive arterial study was also ordered to assess for any disease process. He refuses to attend at this time due to cost concerns. I recommend he follows up with the wound healing center 1 week or call sooner if he has any questions or concerns.
== END 2019-09-23 23:59 ==
LOC: DC 15:30
PROVIDERS: PCP Family Medicine; Visit Provider Podiatrist
DX: Z71.3 Dietary counseling and surveillance (principal); E11.42 Type 2 diabetes mellitus with diabetic polyneuropathy
CPT/HCPCS: 97802; G0108

== ENCOUNTER 2019-10-08 17:29 | Outpatient (RCR) | payer OTHER, SELFPAY ==
[2019-10-08 08:22] VITALS: BMI 34.9
== END 2019-10-24 23:59 ==
LOC: DC 17:29
PROVIDERS: PCP Family Medicine; Visit Provider Podiatrist
DX: Z71.3 Dietary counseling and surveillance (principal); E11.42 Type 2 diabetes mellitus with diabetic polyneuropathy
CPT/HCPCS: 97803

== ENCOUNTER 2019-10-22 08:00 | Outpatient (RCR) | payer OTHER, SELFPAY ==
[2019-09-24 00:31] VITALS: BP 161/87; PULSE 67; RESP 20; TEMP 35.9
[2019-09-24 08:35] VITALS: RESP 20; TEMP 36.3; BMI 34.9
--- NOTE | 2019-09-24 10:08 | PCM.WC.PN ---
(1) Type 2 diabetes mellitus with diabetic polyneuropathy Status: Acute Current Visit: Yes Code(s): E11.42 - Type 2 diabetes mellitus with diabetic polyneuropathy (2) Chronic ulcer of right foot with fat layer exposed Status: Chronic Current Visit: Yes Code(s): L97.512 - Non-pressure chronic ulcer of other part of right foot with fat layer exposed (3) Hallux limitus of right foot Status: Acute Current Visit: Yes Code(s): M20.5X1 - Other deformities of toe(s) (acquired), right foot (4) Chronic malnutrition Status: Chronic Current Visit: Yes Code(s): E46 - Unspecified protein-calorie malnutrition Type of Wound Date of Service: 09/24/19 Chief Complaint: Right great toe ulcer History of Wound: This 54-year-old male with multiple comorbidities including diabetes and hypertension presents for chronic right great toe ulcer. He does have some rest paresthesias. He denies odor or redness. He denies fever, chill, nausea, vomiting. He has been offloading with his cam walker boot and reports he is doing a better job with this. He is working with a print shop assistant. Progress of Wound: improving - Physical Exam Vital Signs Temp Pulse Resp BP 97.3 F L 67 20 H 161/87 H 09/24/19 08:35 09/24/19 00:31 09/24/19 08:35 09/24/19 00:31 General: Alert, Oriented x3, Cooperative Extremities: No cyanosis, Capillary Refill Less than 3 Seconds, No Calf Tenderness, Diminished Peripheral Pulses, Edema Skin: Ulcer/ Wound - No purulence, erythema, streaking, odor, infection. The adjacent skin is hairless and atrophic. The wound bed is granular Wound Measurements and Assessment WC - Nurse 1 - General Ulcer Measurement Start: 09/24/19 08:05 Freq: Status: Active Protocol: Activity Type Activity Date Activity User E-Sign Co-Sign Detail Recorded Client Recorded Date Recorded By Document 09/24/19 08:35 DL [id number] 09/24/19 08:36 DL 09/24/19 08:35 Wound Center Nurse 1 [Ulcer Assessment] #1 R Grt Toe -Current Size (cm) - Length 0.6 -Current Size (cm) - Width 0.4 -Current Size (cm) - Depth 0.2 -Total Square Cm 0.24 -Photo Taken No -Exudate Amt Small -Exudate Type Serosanguineous -Wound Margin Thickened -Granulation Amt Small (1-33%) -Granulation Quality Red -Necrosis Amt Small (1-33%) -Necrotic Tissue Type Adherent Slough -Structure Exposed N/A -Texture (Lisa-wound Skin Appearance) Callus -Moisture (Lisa-wound Skin Appearance Dry/Scaly ) -Color (Lisa-wound Skin Appearance) No Abnormality -Temperature (Lisa-wound Skin No Abnormality Appearance) (Pt Warm) -Tenderness on Palpation (Lisa-wound No Skin Appearance) -Ulcer Cleansing Wound Cleanser -Foul Odor after Cleansing No -Anesthetic Used 4% Lidocaine Solution WC - Nurse 2 - General Ulcer CM Notes Start: 09/24/19 08:05 Freq: Status: Active Protocol: Activity Type Activity Date Activity User E-Sign Co-Sign Detail Recorded Client Recorded Date Recorded By Document 09/24/19 08:22 GEOVANI [id number] 09/24/19 08:26 GEOVANI 09/24/19 08:22 Wound Center Nurse 2 [Procedure/Treatment] -Time 08:24 -Correct Patient Yes -Correct Side, Site, Position Yes -Correct Procedure Yes -Procedure Performed Yes -Type of Procedure Debridement -Clinical Debridement Subcutaneous -Post Debridement Size (cm) - Length 0.7 -Post Debridement Size (cm) - Width 0.4 -Post Debridement Size (cm) - Depth 0.1 -Total Square Cm 0.28 -Wound/Ulcer Outcome Not Healed -Ulcer Cleansing Rinsed/ Irrigated with Saline -Foul Odor after Cleansing No -Bioengineered Tissue No -Bleeding Controlled with Pressure -Offloading Yes -Type of Offloading Camwalker -Treatment Response Procedure Tolerated Well [See Physician Procedure note for Specifics] Pain Scale: 0-10 Numeric [Pain] -Is Patient Pain Free? Yes Musculoskeletal: No Tenderness to Palpation of Joints or Extremities, Muscle Wasting, - - Hallux limitus right foot with decreased first metatarsal phalangeal joint range of motion Neurological: - - Sensation to light touch is consistent with his neuropathy status Psych/Mental Status: Normal Affect, Appropriate Debridement Note Post-Debridement Measurements/Treatment FIDEL - Nurse 2 - General Ulcer CM Notes Start: 09/24/19 08:05 Freq: Status: Active Protocol: Activity Type Activity Date Activity User E-Sign Co-Sign Detail Recorded Client Recorded Date Recorded By Document 09/24/19 08:22 JF [id number] 09/24/19 08:26 JF 09/24/19 08:22 Wound Center Nurse 2 #1 R Grt Toe -Time 08:24 -Correct Patient Yes -Correct Side, Site, Position Yes -Correct Procedure Yes -Procedure Performed Yes -Type of Procedure Debridement -Clinical Debridement Subcutaneous -Post Debridement Size (cm) - Length 0.7 -Post Debridement Size (cm) - Width 0.4 -Post Debridement Size (cm) - Depth 0.1 -Total Square Cm 0.28 -Wound/Ulcer Outcome Not Healed -Ulcer Cleansing Rinsed/ Irrigated with Saline -Foul Odor after Cleansing No -Bioengineered Tissue No -Bleeding Controlled with Pressure -Offloading Yes -Type of Offloading Camwalker -Treatment Response Procedure Tolerated Well Pain Scale: 0-10 Numeric Is Patient Pain Free? Yes Wound debrided: plantar hallux Laterality: Right Wound Grade/Stage: grade 1 Type of Debridement: Excisional debridement Anesthesia Used: 5% Lidocaine Gel Depth: in the subcutaneous layer Percentage of wound debrided: 100 Instrument Used: #15 blade Tissue Removed: fibrous, devitalized subcutaneous, biofilm, slough Severity: Fat Layer Exposed Amount of bleeding with debridement: Mild Bleeding Controlled with: Pressure Patient tolerated procedure well Assessment/Plan Active Problems (Last Reviewed 01/22/19 @ 16:08 by Gege Mclean) Type 2 diabetes mellitus with diabetic polyneuropathy (Acute) Chronic ulcer of right foot with fat layer exposed (Chronic) Hallux limitus of right foot (Acute) Chronic malnutrition (Chronic) Assessment: Right hallux ulcer with fat layer exposed, abdi grade 1, no infection. Hallux limitus. Diabetes with neuropathy Plan: I reviewed and discussed his case. Subcutaneous excisional debridement was performed as noted in the clinical panel. He was reassured no local signs infection are noted. I recommend he change dressing daily with [employer] Ag. To wash with soap and water and to avoid soaking activities. I recommend baseline screening to rule out any deeper injury or infection. He foot x-ray was reviewed without any gross abnormalities, fracture, dislocation, soft tissue emphysema, gross edema, or foreign body. His labs from 08/12/2019 were reviewed without gross abnormality to the CBC or CMP. His white blood cell count was 5.9 and albumin is 3.4. He did have significant abnormality with hemoglobin A1c level which was 10.6%. A surgical shoe and cam walker was fitted and dispensed and was advised to place weight on his heel to prevent ulcer pressure. Understands he cannot wear the cam walker while driving. His cam walker was adjusted today and an additional felt liner offloading pad was added. He understands friction can also cause ulcer healing delays. it is noted he is a nontobacco user and I recommend he does not start any tobacco products at this time. A nutrition referral was also provided. He has attended the session and is already making some modifications. To optimize healing by better controlling his glucose levels and by taking nutritional supplementation. Darian was offered and a prescription was provided today. Samples were provided. I recommend single-layer Tubigrip to better manage his edema. Venous Doppler with reflux evaluation was ordered to look for any venous insufficiency. A noninvasive arterial study was also ordered to assess for any disease process. He refuses to attend at this time due to cost concerns. I recommend he follows up with the wound healing center 2 week or call sooner if he has any questions or concerns.
[2019-10-08 08:22] VITALS: RESP 16; TEMP 35.6
--- NOTE | 2019-10-08 10:28 | PCM.WC.PN ---
(1) Type 2 diabetes mellitus with diabetic polyneuropathy Status: Acute Code(s): E11.42 - Type 2 diabetes mellitus with diabetic polyneuropathy (2) Chronic ulcer of right foot with fat layer exposed Status: Chronic Code(s): L97.512 - Non-pressure chronic ulcer of other part of right foot with fat layer exposed (3) Hallux limitus of right foot Status: Acute Code(s): M20.5X1 - Other deformities of toe(s) (acquired), right foot (4) Chronic malnutrition Status: Chronic Code(s): E46 - Unspecified protein-calorie malnutrition Type of Wound Date of Service: 10/08/19 Chief Complaint: Right great toe ulcer History of Wound: This 54-year-old male with multiple comorbidities including diabetes and hypertension presents for chronic right great toe ulcer. He does have some rest paresthesias. He denies odor or redness. He denies fever, chill, nausea, vomiting. Progress of Wound: improving - Physical Exam Vital Signs Temp Pulse Resp BP 96.1 F L 67 16 161/87 H 10/08/19 08:22 09/24/19 00:31 10/08/19 08:22 09/24/19 00:31 General: Alert, Oriented x3, Cooperative, No apparent distress Extremities: No cyanosis, No edema, Capillary Refill Less than 3 Seconds, Diminished Peripheral Pulses Skin: Ulcer/ Wound - No purulence, erythema, streaking, odor, infection Wound Measurements and Assessment WC - Nurse 1 - General Ulcer Measurement Start: 09/24/19 08:05 Freq: Status: Active Protocol: Activity Type Activity Date Activity User E-Sign Co-Sign Detail Recorded Client Recorded Date Recorded By Document 10/08/19 08:22 [id number] 10/08/19 08:25 10/08/19 08:22 Wound Center Nurse 1 [Ulcer Assessment] #1 R Grt Toe -Combined with other wound No -Current Size (cm) - Length 0.4 -Current Size (cm) - Width 0.3 -Current Size (cm) - Depth 0.3 -Total Square Cm 0.12 -Photo Taken No -Epithelialization None Present -Tunneling No -Undermining/Tunneling No -Circular Undermining No -Classification - Thickness Full Thickness without Exposed Support Structure -Exudate Amt None Present -Exudate Type Serous -Wound Margin Flat & Intact -Granulation Amt None Present (0 %) -Slough/Fibrin Yes -Necrotic Tissue Type Adherent Slough -Structure Exposed None/Limited to Skin Breakdown -Texture (Lisa-wound Skin Appearance) Assessed, Scarring -Moisture (Lisa-wound Skin Appearance Assessed, ) Weeping -Color (Lisa-wound Skin Appearance) Assessed, Erythema - Nurse 2 - General Ulcer CM Notes Start: 09/24/19 08:05 Freq: Status: Active Protocol: Activity Type Activity Date Activity User E-Sign Co-Sign Detail Recorded Client Recorded Date Recorded By Document 10/08/19 08:35 [id number] 10/08/19 08:37 10/08/19 08:35 Wound Center Nurse 2 [Procedure/Treatment] -Time 08:35 -Correct Patient Yes -Correct Side, Site, Position Yes -Correct Procedure Yes -Procedure Performed Yes -Type of Procedure Debridement -Clinical Debridement Subcutaneous -Post Debridement Size (cm) - Length 0.7 -Post Debridement Size (cm) - Width 0.3 -Post Debridement Size (cm) - Depth 0.2 -Total Square Cm 0.21 -Wound/Ulcer Outcome Not Healed -Ulcer Cleansing Rinsed/ Irrigated with Saline -Foul Odor after Cleansing No -Bioengineered Tissue No -Bleeding Controlled with Pressure -Offloading Yes -Type of Offloading Surgical Shoe -Treatment Response Procedure Tolerated Well [See Physician Procedure note for Specifics] Pain Scale: 0-10 Numeric [Pain] -Is Patient Pain Free? Yes Musculoskeletal: Muscle Wasting, - - Decreased loaded first metatarsophalangeal joint consistent with hallux limitus Neurological: - - Lack of normal epicritic sensation Psych/Mental Status: Normal Affect, Appropriate Debridement Note Post-Debridement Measurements/Treatment - Nurse 2 - General Ulcer CM Notes Start: 09/24/19 08:05 Freq: Status: Active Protocol: Activity Type Activity Date Activity User E-Sign Co-Sign Detail Recorded Client Recorded Date Recorded By Document 09/24/19 08:22 [id number] 09/24/19 08:26 Document 10/08/19 08:35 [id number] 10/08/19 08:37 09/24/19 10/08/19 08:22 08:35 Wound Center Nurse 2 #1 R Grt Toe -Time 08:24 08:35 -Correct Patient Yes Yes -Correct Side, Site, Position Yes Yes -Correct Procedure Yes Yes -Procedure Performed Yes Yes -Type of Procedure Debridement Debridement -Clinical Debridement Subcutaneous Subcutaneous -Post Debridement Size (cm) - Length 0.7 0.7 -Post Debridement Size (cm) - Width 0.4 0.3 -Post Debridement Size (cm) - Depth 0.1 0.2 -Total Square Cm 0.28 0.21 -Wound/Ulcer Outcome Not Healed Not Healed -Ulcer Cleansing Rinsed/ Rinsed/ Irrigated with Irrigated with Saline Saline -Foul Odor after Cleansing No No -Bioengineered Tissue No No -Bleeding Controlled with Pressure Pressure -Offloading Yes Yes -Type of Offloading Camwalker Surgical Shoe -Treatment Response Procedure Procedure Tolerated Well Tolerated Well Pain Scale: 0-10 Numeric Is Patient Pain Free? Yes Yes Wound debrided: plantar hallux Laterality: Right Wound Grade/Stage: grade 1 Type of Debridement: Excisional debridement Anesthesia Used: 5% Lidocaine Gel Depth: in the subcutaneous layer Percentage of wound debrided: 100 Instrument Used: #15 blade Tissue Removed: fibrous, devitalized subcutaenous, biofilm, slough Severity: Fat Layer Exposed Amount of bleeding with debridement: Mild Bleeding Controlled with: Pressure Patient tolerated procedure well Assessment/Plan Assessment: Right hallux ulcer with fat layer exposed, abdi grade 1, no infection. Hallux limitus. Diabetes with neuropathy Plan: I reviewed and discussed his case. Subcutaneous excisional debridement was performed as noted in the clinical panel. He was reassured no local signs infection are noted. I recommend he change dressing daily with Aquacel Ag. To wash with soap and water and to avoid soaking activities. I previously recommended baseline screening to rule out any deeper injury or infection. He foot x-ray was reviewed without any gross abnormalities, fracture, dislocation, soft tissue emphysema, gross edema, or foreign body. His labs from 08/12/2019 were reviewed without gross abnormality to the CBC or CMP. His white blood cell count was 5.9 and albumin is 3.4. He did have significant abnormality with hemoglobin A1c level which was 10.6%. A surgical shoe and cam walker was fitted and dispensed and was advised to place weight on his heel to prevent ulcer pressure. Understands he cannot wear the cam walker while driving. His cam walker was adjusted today and an additional felt liner offloading pad was added. He understands friction can also cause ulcer healing delays. It is noted he is a nontobacco user and I recommend he does not start any tobacco products at this time. A nutrition referral was also provided. He has attended the session and is already making some modifications. To optimize healing by better controlling his glucose levels and by taking nutritional supplementation. Darian was offered and a prescription was provided today. Samples were provided. I recommend single-layer Tubigrip to better manage his edema. Venous Doppler with reflux evaluation was ordered to look for any venous insufficiency. A noninvasive arterial study was also ordered to assess for any disease process. He refuses to attend at this time due to cost concerns. I recommend he follows up with the wound healing center 1 to 2 week or call sooner if he has any questions or concerns.
[2019-10-22 08:02] VITALS: BP 159/84; PULSE 66; RESP 18; TEMP 35.9; BMI 34.9
--- NOTE | 2019-10-22 08:28 | PN.PCM_ITS ---
(1) Type 2 diabetes mellitus with diabetic polyneuropathy Status: Acute Current Visit: Yes Code(s): E11.42 - Type 2 diabetes mellitus with diabetic polyneuropathy (2) Chronic ulcer of right foot with fat layer exposed Status: Chronic Current Visit: Yes Code(s): L97.512 - Non-pressure chronic ulcer of other part of right foot with fat layer exposed (3) Hallux limitus of right foot Status: Acute Current Visit: Yes Code(s): M20.5X1 - Other deformities of toe(s) (acquired), right foot (4) Chronic malnutrition Status: Chronic Current Visit: Yes Code(s): E46 - Unspecified protein- calorie malnutrition Type of Wound Date of Service: 10/22/19 Chief Complaint: Right great toe ulcer History of Wound: This 54-year-old male with multiple comorbidities including diabetes and hypertension presents for chronic right great toe ulcer. He does have some rest paresthesias. He denies odor or redness. He denies fever, c hill, nausea, vomiting. He was peeling some loose skin in the shower earlier this week and has a new skin tear adjacent to the initial ulcer site. Progress of Wound: improving - Physical Exam Vital Signs Temp Pulse Resp BP 96.6 F L 66 18 159/84 H 10/22/19 08:02 10/22/19 08:02 10/22/19 08:02 10/22/19 08:02 General: Alert, Oriented x3, Cooperative Extremities: No cyanosis, No edema, Capillary Refill Less than 3 Seconds, Diminished Peripheral Pulses Skin: Ulcer/ Wound - No purulence, erythema, string, odor, infection. Adjacent skin tear noted distal plantar hallux granular base. No deep exposure Wound Measurements and Assessment WC - Nurse 1 - General Ulcer Measurement Start: 09/24/19 08:05 Freq: Status: Active Protocol: Activity Type Activity Date Activity User E-Sign Co-Sign Detail Recorded Client Recorded Date Recorded By Document 10/22/19 08:02 DL [id number] 10/22/19 08:07 DL 10/22/19 08:02 Wound Center Nurse 1 [Ulcer Assessment] #1 R Grt Toe -Current Size (cm) - Length 1 -Current Size (cm) - Width 0.3 -Current Size (cm) - Depth 0.1 -Total Square Cm 0.3 -Photo Taken No -Exudate Amt None Present -Wound Margin Distinct, Outline Attached -Granulation Amt Small (1-33%) -Granulation Quality [place] -Necrosis Amt None Present (0 %) -Structure Exposed N/A -Texture (Lisa-wound Skin Appearance) No Abnormality -Moisture (Lisa-wound Skin Appearance No Abnormality ) -Color (Lisa-wound Skin Appearance) No Abnormality -Temperature (Lisa-wound Skin No Abnormality Appearance) (Pt Warm) -Tenderness on Palpation (Lisa-wound No Skin Appearance) -Ulcer Cleansing Rinsed/ Irrigated with Saline -Foul Odor after Cleansing No -Anesthetic Used 4% Lidocaine Solution - Nurse 2 - General Ulcer CM Notes Start: 09/24/19 08:05 Freq: Status: Active Protocol: Activity Type Activity Date Activity User E-Sign Co-Sign Detail Recorded Client Recorded Date Recorded By Document 10/22/19 08:18 GEOVANI [id number] 10/22/19 08:22 10/22/19 08:18 Wound Center Nurse 2 [Procedure/Treatment] -Time 08:20 -Correct Patient Yes -Correct Side, Site, Position Yes -Correct Procedure Yes -Procedure Performed Yes -Type of Procedure Debridement -Clinical Debridement Subcutaneous -Post Debridement Size (cm) - Length 0.3 -Post Debridement Size (cm) - Width 0.3 -Post Debridement Size (cm) - Depth 0.1 -Total Square (cm) 0.09 -Wound/Ulcer Outcome Not Healed -Ulcer Cleansing Rinsed/ Irrigated with Saline -Foul Odor after Cleansing No -Bioengineered Tissue No -Bleeding Controlled with Pressure -Offloading Yes -Type of Offloading Camwalker -Treatment Response Procedure Tolerated Well [See Physician Procedure note for Specifics] Pain Scale: 0-10 Numeric [Pain] -Is Patient Pain Free? Yes Musculoskeletal: No Tenderness to Palpation of Joints or Extremities, Muscle Wasting, - - Decreased loaded first metatarsal phalangeal joint Neurological: - - Lack of normal epicritic sensation Psych/Mental Status: Normal Affect, Appropriate Debridement Note Post-Debridement Measurements/Treatment - Nurse 2 - General Ulcer CM Notes Start: 09/24/19 08:05 Freq: Status: Active Protocol: Activity Type Activity Date Activity User E-Sign Co-Sign Detail Recorded Client Recorded Date Recorded By Document 09/24/19 08:22 JF [id number] 09/24/19 08:26 Document 10/08/19 08:35 [id number] 10/08/19 08:37 Document 10/22/19 08:18 [id number] 10/22/19 08:22 09/24/19 10/08/19 10/22/19 08:22 08:35 08:18 Wound Center Nurse 2 #1 R Grt Toe -Time 08:24 08:35 08:20 -Correct Patient Yes Yes Yes -Correct Side, Site, Position Yes Yes Yes -Correct Procedure Yes Yes Yes -Procedure Performed Yes Yes Yes -Type of Procedure Debridement Debridement Debridement -Clinical Debridement Subcutaneous Subcutaneous Subcutaneous -Post Debridement Size (cm) - Length 0.7 0.7 0.3 -Post Debridement Size (cm) - Width 0.4 0.3 0.3 -Post Debridement Size (cm) - Depth 0.1 0.2 0.1 -Total Square (cm) 0.28 0.21 0.09 -Wound/Ulcer Outcome Not Healed Not Healed Not Healed -Ulcer Cleansing Rinsed/ Rinsed/ Rinsed/ Irrigated with Irrigated with Irrigated with Saline Saline Saline -Foul Odor after Cleansing No No No -Bioengineered Tissue No No No -Bleeding Controlled with Pressure Pressure Pressure -Offloading Yes Yes Yes -Type of Offloading Camwalker Surgical Shoe Camwalker -Treatment Response Procedure Procedure Procedure Tolerated Well Tolerated Well Tolerated Well Pain Scale: 0-10 Numeric Is Patient Pain Free? Yes Yes Yes Wound debrided: plantar hallux Laterality: Right Wound Grade/Stage: grade 1 Type of Debridement: Excisional debridement Depth: in the subcutaneous layer Percentage of wound debrided: 100 Instrument Used: #15 blade Tissue Removed: fibrous, devitalized subcutaneous, biofilm, slough Severity: Fat Layer Exposed Amount of bleeding with debridement: Mild Bleeding Controlled with: Pressure Patient tolerated procedure well Assessment/Plan Active Problems (Last Reviewed 01/22/19 @ 16:08 by Gege Mclean) Type 2 diabetes mellitus with diabetic polyneuropathy (Acute) Chronic ulcer of right foot with fat layer exposed (Chronic) Hallux limitus of right foot (Acute) Chronic malnutrition (Chronic) Assessment: Right hallux ulcer with fat layer exposed, abdi grade 1, no infection. Hallux limitus. Diabetes with neuropathy Plan: I reviewed and discussed his case. Subcutaneous excisional debridement was performed as noted in the clinical panel. His skin tears noted and this is stable. He was reassured no local signs infection are noted. I recommend he change dressing daily with Aquacel Ag. To also apply the skin tear site.. To wash with soap and water and to avoid soaking activities. I previously recommended baseline screening to rule out any deeper injury or infection. He foot x-ray was reviewed without any gross abnormalities, fracture, dislocation, soft tissue emphysema, gross edema, or foreign body. His labs from 08/12/2019 were reviewed without gross abnormality to the CBC or CMP. His white blood cell count was 5.9 and albumin is 3.4. He did have significant abnormality with hemoglobin A1c level which was 10.6%. A surgical shoe and cam walker was fitted and dispensed and was advised to place weight on his heel to prevent ulcer pressure. Understands he cannot wear the cam walker while driving. His cam walker was adjusted today and an additional felt liner offloading pad was added. He understands friction can also cause ulcer healing delays. It is noted he is a nontobacco user and I recommend he does not start any tobacco products at this time. A nutrition referral was also provided. He has attended the session and is already making some modifications. To optimize healing by better controlling his glucose levels and by taking nutritional supplementation. Darian was offered and a prescription was provided today. Samples were provided. I recommend single-layer Tubigrip to better manage his edema. Venous Doppler with reflux evaluation was ordered to look for any venous insufficiency. A noninvasive arterial study was also ordered to assess for any disease process. He refuses to attend at this time due to cost concerns. I recommend he follows up with the wound healing center 1 to 2 week or call sooner if he has any questions or concerns.
== END 2019-10-24 23:59 ==
LOC: WC 08:00
PROVIDERS: PCP Family Medicine; Referring Provider Podiatrist; Visit Provider Podiatrist
DX: E11.621 Type 2 diabetes mellitus with foot ulcer (principal); E11.42 Type 2 diabetes mellitus with diabetic polyneuropathy; L97.512 Non-pressure chronic ulcer of other part of right foot with fat layer exposed; M20.5X1 Other deformities of toe(s) (acquired), right foot; I10 Essential (primary) hypertension
CPT/HCPCS: 11042

== ENCOUNTER 2019-10-29 15:29 | Outpatient (RCR) | payer OTHER, SELFPAY | END 2019-10-29 23:59 | disposition home or self-care (01) | LOC: DC 15:29 | PROVIDERS: PCP Family Medicine; Visit Provider Podiatrist | DX: Z71.3 Dietary counseling and surveillance (principal); E11.42 Type 2 diabetes mellitus with diabetic polyneuropathy | CPT/HCPCS: G0108 ==

== ENCOUNTER 2019-11-12 08:00 | Outpatient (RCR) | payer OTHER, SELFPAY ==
[2019-10-25 00:30] VITALS: BP 159/84; PULSE 66; RESP 18; TEMP 35.9
[2019-11-05 08:07] VITALS: BP 156/73; PULSE 63; RESP 18; TEMP 36.4; BMI 34.9
--- NOTE | 2019-11-05 11:34 | PN.PCM_ITS ---
(1) Chronic ulcer of right foot with fat layer exposed Status: Chronic Current Visit: Yes Code(s): L97.512 - Non-pressure chronic ulcer of other part of right foot with fat layer exposed (2) Type 2 diabetes mellitus with diabetic polyneuropathy Status: Acute Current Visit: Yes Code(s): E11.42 - Type 2 diabetes mellitus with diabetic polyneuropathy (3) Hallux limitus of right foot Status: Acute Current Visit: Yes Code(s): M20.5X1 - Other deformities of toe(s) (acquired), right foot Type of Wound Date of Service: 11/05/19 Chief Complaint: Right great toe ulcer History of Wound: This 54-year-old male with multiple comorbidities including diabetes and hypertension presents for chronic right great toe ulcer. He does have some rest paresthesias. He denies odor or redness. He denies fever, chill, nausea, vomiting. Progress of Wound: improving - Physical Exam Vital Signs Temp Pulse Resp BP 97.6 F L 63 18 156/73 H 11/05/19 08:07 11/05/19 08:07 11/05/19 08:07 11/05/19 08:07 General: Alert, Oriented x3, Cooperative, No apparent distress HEENT: Atraumatic Extremities: Capillary Refill Less than 3 Seconds, No Calf Tenderness, Edema - mild Skin: Ulcer/ Wound - no purulence, no erythema, no streaking, no odor, no infec tion. atrophic adjacent skin Wound Measurements and Assessment WC - Nurse 1 - General Ulcer Measurement Start: 11/05/19 08:07 Freq: Status: Active Protocol: Activity Type Activity Date Activity User E-Sign Co-Sign Detail Recorded Client Recorded Date Recorded By Document 11/05/19 08:07 PL [id number] 11/05/19 08:13 PL 11/05/19 08:07 Wound Center Nurse 1 [Ulcer Assessment] #1 R Grt Toe -Combined with other wound No -Current Size (cm) - Length 0 -Current Size (cm) - Width 0 -Current Size (cm) - Depth 0 -Total Square Cm 0 -Photo Taken No -Epithelialization Large 67-100% -Tunneling No -Undermining/Tunneling No -Exudate Amt None Present -Granulation Amt Large (67-100%) -Granulation Quality [place] -Slough/Fibrin No -Necrosis Amt None Present (0 %) -Texture (Lisa-wound Skin Appearance) No Abnormality -Moisture (Lisa-wound Skin Appearance No Abnormality ) -Temperature (Lisa-wound Skin No Abnormality Appearance) (Pt Warm) -Ulcer Cleansing Rinsed/ Irrigated with Saline -Foul Odor after Cleansing No WC - Nurse 2 - General Ulcer CM Notes Start: 11/05/19 08:07 Freq: Status: Active Protocol: Activity Type Activity Date Activity User E-Sign Co-Sign Detail Recorded Client Recorded Date Recorded By Document 11/05/19 08:25 [email or web address] [id number] 11/05/19 08:26 JF 11/05/19 08:25 Wound Center Nurse 2 [Procedure/Treatment] -Time 08:26 -Correct Patient Yes -Correct Side, Site, Position Yes -Correct Procedure Yes -Procedure Performed Yes -Type of Procedure Debridement -Clinical Debridement Subcutaneous -Post Debridement Size (cm) - Length 0.1 -Post Debridement Size (cm) - Width 0.1 -Post Debridement Size (cm) - Depth 0.1 -Total Square (cm) 0.01 -Wound/Ulcer Outcome Not Healed -Ulcer Cleansing Rinsed/ Irrigated with Saline -Foul Odor after Cleansing No -Bioengineered Tissue No -Bleeding Controlled with Pressure -Offloading Yes -Type of Offloading Camwalker -Treatment Response Procedure Tolerated Well [See Physician Procedure note for Specifics] Pain Scale: 0-10 Numeric [Pain] -Is Patient Pain Free? Yes Musculoskeletal: No Tenderness to Palpation of Joints or Extremities, Muscle Wasting Neurological: - - lack of normal epicritic sensation Debridement Note Post-Debridement Measurements/Treatment WC - Nurse 2 - General Ulcer CM Notes Start: 11/05/19 08:07 Freq: Status: Active Protocol: Activity Type Activity Date Activity User E-Sign Co-Sign Detail Recorded Client Recorded Date Recorded By Document 11/05/19 08:25 JF [id number] 11/05/19 08:26 JF 11/05/19 08:25 Wound Center Nurse 2 #1 R Grt Toe -Time 08:26 -Correct Patient Yes -Correct Side, Site, Position Yes -Correct Procedure Yes -Procedure Performed Yes -Type of Procedure Debridement -Clinical Debridement Subcutaneous -Post Debridement Size (cm) - Length 0.1 -Post Debridement Size (cm) - Width 0.1 -Post Debridement Size (cm) - Depth 0.1 -Total Square (cm) 0.01 -Wound/Ulcer Outcome Not Healed -Ulcer Cleansing Rinsed/ Irrigated with Saline -Foul Odor after Cleansing No -Bioengineered Tissue No -Bleeding Controlled with Pressure -Offloading Yes -Type of Offloading Camwalker -Treatment Response Procedure Tolerated Well Pain Scale: 0-10 Numeric Is Patient Pain Free? Yes Wound debrided: hallux Laterality: Right Wound Grade/Stage: grade 1 Type of Debridement: Excisional debridement Anesthesia Used: 5% Lidocaine Gel Depth: in the subcutaneous layer Percentage of wound debrided: 100 Instrument Used: #15 blade Tissue Removed: fibrous, devitalized subcutaneous, biofilm, slough Severity: Fat Layer Exposed Amount of bleeding with debridement: Mild Bleeding Controlled with: Pressure Patient tolerated procedure well Assessment/Plan Active Problems (Last Reviewed 01/22/19 @ 16:08 by Gege Mclean) Type 2 diabetes mellitus with diabetic polyneuropathy (Acute) Chronic ulcer of right foot with fat layer exposed (Chronic) Hallux limitus of right foot (Acute) Assessment: Right hallux ulcer with fat layer exposed, abdi grade 1, no infection. Hallux limitus. Diabetes with neuropathy Plan: I reviewed and discussed his case. Subcutaneous excisional debridement was performed as noted in the clinical panel. He was reassured no local signs infection are noted. I recommend he change dressing daily with [employer]. To wash with soap and water and to avoid soaking activities. I previously recommended baseline screening to rule out any deeper injury or infection. He foot x-ray was reviewed without any gross abnormalities, fracture, dislocation, soft tissue emphysema, gross edema, or foreign body. His labs from 08/12/2019 were reviewed without gross abnormality to the CBC or CMP. His white blood cell count was 5.9 and albumin is 3.4. He did have significant abnormality with hemoglobin A1c level which was 10.6%. A surgical shoe and cam walker was fitted and dispensed and was advised to place weight on his heel to prevent ulcer pressure. Understands he cannot wear the cam walker while driving. His cam walker was adjusted today and an additional felt liner offloading pad was added. He understands friction can also cause ulcer healing delays. It is noted he is a nontobacco user and I recommend he does not start any tobacco products at this time. A nutrition referral was also provided. He has attended the session and is already making some modifications. To optimize healing by better controlling his glucose levels and by taking nutritional supplementation. Darian was obtained; to continue up to twice daily. I recommend single-layer Tubigrip to better manage his edema. Venous Doppler with reflux evaluation was ordered to look for any venous insufficiency. A noninvasive arterial study was also ordered to assess for any disease process. He refuses to attend at this time due to cost concerns. I recommend he follows up with the wound healing center 1 to 2 week or call sooner if he has any questions or concerns.
[2019-11-12 08:12] VITALS: BP 149/74; PULSE 64; RESP 20; TEMP 36.4; BMI 34.9
--- NOTE | 2019-11-12 13:53 | PN.PCM_ITS ---
(1) Chronic ulcer of right foot with fat layer exposed Status: Resolved Code(s): L97.512 - Non-pressure chronic ulcer of other part of right foot with fat layer exposed (2) Type 2 diabetes mellitus with diabetic polyneuropathy Status: Chronic Code(s): E11.42 - Type 2 diabetes mellitus with diabetic polyneuropathy (3) Hallux limitus of right foot Status: Chronic Code(s): M20.5X1 - Other deformities of toe(s) (acquired), right foot Type of Wound Date of Service: 11/12/19 Chief Complaint: Right great toe ulcer History of Wound: This 54-year-old male with multiple comorbidities including diabetes and hypertension presents for chronic right great toe ulcer. He does have some rest paresthesias. He denies odor or redness. He denies fever, chill, nausea, vomiting. He denies drainage and thinks his ulcer has healed. Progress of Wound: Healed - Physical Exam Vital Signs Temp Pulse Resp BP 97.6 F L 64 20 H 149/74 H 11/12/19 08:12 11/12/19 08:12 11/12/19 08:12 11/12/19 08:12 General: Alert, Oriented x3, Cooperative, No apparent distress HEENT: Atraumatic Extremities: No cyanosis, No edema, Capillary Refill Less than 3 Seconds, No Calf Tenderness, Diminished Peripheral Pulses Skin: Ulcer/ Wound - Full epithelialization is noted. The ulcer is healed. There is no purulence, erythema, streaking, odor, infection. His skin is atrophic Wound Measurements and Assessment WC - Nurse 1 - General Ulcer Measurement Start: 11/05/19 08:07 Freq: Status: Active Protocol: Activity Type Activity Date Activity User E-Sign Co-Sign Detail Recorded Client Recorded Date Recorded By Document 11/12/19 08:12 DL [id number] 11/12/19 08:15 DL 11/12/19 08:12 Wound Center Nurse 1 [Ulcer Assessment] #1 R Grt Toe -Current Size (cm) - Length 0 -Current Size (cm) - Width 0 -Current Size (cm) - Depth 0 -Total Square Cm 0 -Photo Taken Yes -Exudate Amt None Present -Wound Margin Flat & Intact -Granulation Amt Large (67-100%) -Granulation Quality [place] -Necrosis Amt None Present (0 %) -Structure Exposed N/A -Texture (Lisa-wound Skin Appearance) Scarring -Moisture (Lisa-wound Skin Appearance No Abnormality ) -Color (Lisa-wound Skin Appearance) No Abnormality -Temperature (Lisa-wound Skin No Abnormality Appearance) (Pt Warm) -Tenderness on Palpation (Lisa-wound No Skin Appearance) -Ulcer Cleansing Rinsed/ Irrigated with Saline -Foul Odor after Cleansing No WC - Nurse 2 - General Ulcer CM Notes Start: 11/11/19 19:19 Freq: Status: Active Protocol: Activity Type Activity Date Activity User E-Sign Co-Sign Detail Recorded Client Recorded Date Recorded By Document 11/12/19 08:23 [id number] 11/12/19 08:24 11/12/19 08:23 Wound Center Nurse 2 [Procedure/Treatment] -Correct Patient No -Correct Side, Site, Position No -Correct Procedure No -Procedure Performed No -Post Debridement (cm) - Length 0 -Post Debridement (cm) - Width 0 -Post Debridement (cm) - Depth 0 -Total Square (Post) (cm) 0 -Area of Debridement (cm) - Length 0 -Area of Debridement (cm) - Width 0 -Total Square (Area) (cm) 0 -Tunneling No -Undermining/Tunneling No -Wound/Ulcer Outcome Healed- Epithelialized [See Physician Procedure note for Specifics] Pain Scale: 0-10 Numeric [Pain] -Is Patient Pain Free? Yes - Nurse 3 - General Ulcer D/C NN Start: 11/11/19 19:19 Freq: Status: Active Protocol: Activity Type Activity Date Activity User E-Sign Co-Sign Detail Recorded Client Recorded Date Recorded By Document 11/12/19 08:24 [id number] 11/12/19 08:25 11/12/19 08:24 -Is Patient Pain Free? Yes - Visit Discharge [Visit Discharge Information] -Discharge Condition Stable -Ambulatory Status Ambulatory -Transportation Private Auto -Medication Reconcilliation completed Yes & provided to patient/care provider -Clinical Summary of Care Provided Yes Musculoskeletal: No Tenderness to Palpation of Joints or Extremities, - - Decreased on first metatarsal phalangeal joint range of motion Neurological: - - Lack of normal epicritic sensation consistent with neuropathy status Psych/Mental Status: Normal Affect, Appropriate Debridement Note Post-Debridement Measurements/Treatment FIDEL - Nurse 2 - General Ulcer CM Notes Start: 11/11/19 19:19 Freq: Status: Active Protocol: Activity Type Activity Date Activity User E-Sign Co-Sign Detail Recorded Client Recorded Date Recorded By Document 11/12/19 08:23 JF [id number] 11/12/19 08:24 JF 11/12/19 08:23 Wound Center Nurse 2 #1 R Grt Toe -Correct Patient No -Correct Side, Site, Position No -Correct Procedure No -Procedure Performed No -Post Debridement (cm) - Length 0 -Post Debridement (cm) - Width 0 -Post Debridement (cm) - Depth 0 -Total Square (Post) (cm) 0 -Area of Debridement (cm) - Length 0 -Area of Debridement (cm) - Width 0 -Total Square (Area) (cm) 0 -Tunneling No -Undermining/Tunneling No -Wound/Ulcer Outcome Healed- Epithelialized Pain Scale: 0-10 Numeric Is Patient Pain Free? Yes - Nurse 3 - General Ulcer D/C NN Start: 11/11/19 19:19 Freq: Status: Active Protocol: Activity Type Activity Date Activity User E-Sign Co-Sign Detail Recorded Client Recorded Date Recorded By Document 11/12/19 08:24 JF [id number] 11/12/19 08:25 11/12/19 08:24 Is Patient Pain Free? Yes WC - Visit Discharge Discharge Condition Stable Ambulatory Status Ambulatory Transportation Private Auto Medication Reconcilliation completed & Yes provided to patient/care provider Clinical Summary of Care Provided Yes No debridement was completed today - Healed today Assessment/Plan Assessment: Right hallux ulcer -healed. Hallux limitus. Diabetes with neuropathy Plan: I reviewed and discussed his case. Subcutaneous excisional debridement was performed as noted in the clinical panel. He was reassured no local signs infection are noted. To discontinue dressing changes. He was reassured there are no signs of ulcer or infection. He was advised to allow the skin to remodel for at least 1 week and then to transition into the extra-depth shoe with protective dual density insole. He already has this. He would like to return to work and a work note was provided. To monitor her close for recurrence. To continue maintain proper glycemic control to prevent recurrence or other health issues. He will be discharged from the wound healing center at this time. To follow-up with the foot and ankle center on an annual basis and minimum fall risk assessment or sooner if he has any other lower extremity ailments. To check feet daily and to keep skin integrity intact with daily moisturizing. I answered all his questions.
== END 2019-11-13 08:13 | disposition home or self-care (01) ==
LOC: WC 08:00
PROVIDERS: PCP Family Medicine; Referring Provider Podiatrist; Visit Provider Podiatrist
DX: E11.621 Type 2 diabetes mellitus with foot ulcer (principal); E11.42 Type 2 diabetes mellitus with diabetic polyneuropathy; L97.512 Non-pressure chronic ulcer of other part of right foot with fat layer exposed; M20.5X1 Other deformities of toe(s) (acquired), right foot; I10 Essential (primary) hypertension; R60.0 Localized edema
CPT/HCPCS: 11042; 99212; G0463

== ENCOUNTER 2020-08-18 12:45 | Outpatient (RCR) | payer OTHER, SELFPAY ==
[2020-08-18 13:08] VITALS: BP 145/69; PULSE 65; RESP 16; TEMP 36.3; BMI 38.0
--- NOTE | 2020-08-18 13:44 | HP.PCM_ITS ---
History of Present Illness Date of Service: 08/18/20 Chief Complaint: Right great toe ulcer History of Wound: This 54-year-old male with multiple comorbidities including diabetes and hypertension presents for chronic recurrent right great toe ulcer with an onset of about 2 months ago. 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 He also reports he has an ingrown toenail and wonders if this is related. He denies routinely checking his glucose levels at home. He relates Dr. Lubin usually orders an updated A1c about every 3 months and his last one is self-reported at 7%. He does have some rest paresthesias and numbness. He denies odor or trauma. He denies fever, chill, nausea, vomiting. He denies claudication or smoking habits. He does have some redness extending to the top of his foot. Progress of Wound: [facility] Medical History (Updated 08/18/20 @ 14:[address] Richelle Sharpe, DP) Acute [place], subendocardial Atherosclerotic heart disease of [place] coronary artery without angina pectoris Cardiac murmur Essential hypertension Old myocardial infarction JOSEPH (obstructive sleep apnea) Pure hypercholesterolemia Type 2 diabetes mellitus Home Medications aspirin 81 mg tablet,delayed release 81 mg PO QDAY 03/08/17 [History Last Taken Unknown] glipizide 5 mg tablet 5 mg PO BID 03/08/17 [History Last Taken Unknown] lisinopril 5 mg tablet 5 mg PO QDAY #90 tab 09/21/17 [Rx Last Taken Unknown] vitamins A,C,Q-fdir-pvijcy 7,160 unit-113 mg-100 unit tablet 2 tab PO BID 12/11/17 [History Last Taken Unknown] pravastatin 40 mg tablet 40 mg PO QHS #30 tab 08/13/18 [Rx Last Taken Unknown] metformin 1,000 mg tablet 1,000 mg PO BID 30 Days #60 tab 01/22/19 [History Last Taken Unknown] pioglitazone 15 mg tablet 15 mg PO DAILY 01/22/19 [History Last Taken Unknown] glimepiride 2 mg PO DAILY 08/13/19 [History Last Taken Unknown] metoprolol tartrate 50 mg tablet 50 mg PO BID #180 tab 10/14/19 [Rx Last Taken Unknown] Nutra Vision 1 tab DAILY 08/18/20 [History Last Taken Unknown] cephalexin 500 mg PO BID #14 cap 05/26/21 [Rx Last Taken Unknown] dapagliflozin [Farxiga] mg PO DAILY 08/18/20 [History Last Taken Unknown] Allergy/AdvReac Type Severity Reaction Status Date / Time Penicillins Allergy Severe Hives Verified 08/18/20 13:21 Family History Father Heart disease [place]' lung Sister Arthritis Surgical History (Updated 08/13/19 @ 12:[address] Richelle Sharpe DPM) History of tonsillectomy and adenoidectomy History of umbilical hernia repair Presence of coronary angioplasty implant and graft (~04/01/07) Presence of stent in coronary artery (~04/01/07) Status post correction of deviated nasal septum Social History (Updated 01/22/19 @ 17:[address] Feliciano Warren MD) Smoking Status: Never smoker second hand exposure: No alcohol intake: current alcohol intake frequency: a few times a month substance use type: does not use caffeine: Yes Type: coffee Number of servings: 1 Vital Signs Vital Signs Vital Signs: 08/18/20 13:08 Temperature 97.3 F L Temperature Source Temporal Pulse Rate 65 Respiratory Rate 16 Blood Pressure 145/69 H Blood Pressure Mean 94 Blood Pressure Source Monitor Blood Pressure Location Left Arm Oxygen Delivery Method Room Air Weight Weight: 113.398 kg Body Mass Index (BMI) 38.0 Physical Exam Const alert and oriented x3 General Appearance: cooperative HEENT normocephalic Extremity Extremity Narrative: No calf tenderness Diminished pulses (2 out of 4 DP bilateral and nonpalpable PT bilateral. Minimal hair lower extremity Muscle wasting noted Decreased noted first metatarsophalangeal joint range of motion loaded and unloaded, right No bogginess or fluctuance or crepitus on palpation to the foot No pain on palpation incurvated right hallux toenail borders, medial lateral borders General Extremity: edema and no tenderness to palpation of joints or extremities; Negative for cyanosis Skin Skin Narrative: no purulence, no streaking, no odor, no infection. Skin discontinuity granular and fibrous plantar medial hallux, right. Incurvated nail with minor serous drainage to the lateral border of the hallux. The nail is well adhered. Erythema to base of hallux extends to the dorsal foot without lymphangitic streaking Neuro Neuro Narrative: lack of normal epicritic sensation via light touch is consistent with neuropathy status Psych cooperative and affect normal Debridement Note Debridement Note Post-Debridement Measurements and Additional Note: Post-Debridement Measurements/Treatment FIDEL - Nurse 1 - General Ulcer Assessment Start: 08/18/20 13:06 Freq: Status: Active Protocol: ALIYA Activity Type Activity Date Activity User E-Sign Co-Sign Detail Recorded Client Recorded Date Recorded By Document 08/18/20 13:08 [facility] Desktop 08/18/20 13:21 [facility] 08/18/20 13:08 - Today's Visit Information Type of service Initial Visit Arrival Mode Ambulatory Transfer Assistance None Patient Identification Verified (Name & Yes ) Patient Requires Transmission-Based No Precautions Height and Weight Height 5 ft 8 in Weight 113.398 kg Weight in Pounds 250.0 lbs Weight Measurement Method Estimated by Patient Body Mass Index (BMI) 38.0 BMI Classification Obese BSA - Norm 2.25 Vital Signs Temperature (97.8 F-99.1 F) 97.3 F L Temperature Source Temporal Pulse Rate (60-100) 65 Pulse Location Monitor Respiratory Rate (12-18) 16 Respiratory rate source Observation Oxygen Delivery Method Room Air Blood Pressure (90/60-120/80) 145/69 H Blood Pressure Mean 94 Source Monitor Blood Pressure Location Left Arm History Since Last Visit- (Skip if this is Patient's initial visit) Left Footwear Regular Shoe Right Footwear Regular Shoe Pain Scale: 0-10 Numeric Is Patient Pain Free? Yes Communication Assessment Preferred language Sami Patient Monitor Required No Able to Read Yes Able to Write Yes Communication Tools None Right Hearing Abillity Normal Left Hearing Abillity Normal Visual Assistive Devices Glasses Teaching Assessment Preferences Verbal,Written, Audio/Visual, Demonstration Barriers to Learning None Readiness To Learn Excellent Willingness to Engage in Self Management High Activies Readiness to Engage in Self Management High Activities Anxiety Level Calm Cooperation Cooperative Perception Coherent Interest in Health Problem Asks Questions Education Importance Acknowledges Need Does Patient Smoke tobacco or other No substances Is Patient Diabetic Yes Functional Assessment Recent Decline in Ability to Perform Denies Any Declines Culture/Temple/Geometry Professor Cultural/Temple Needs that may affect No Treatment Plan Teaching: Wound Center *Welcome to the Wound Center -Person Taught Patient -Teaching Method Discussion -Response to teaching Verbalize understanding Welcome to the Wound Care Center English PARRA - Nurse 1 - General Ulcer Measurement Start: 08/18/20 13:06 Freq: Status: Active Protocol: Activity Type Activity Date Activity User E-Sign Co-Sign Detail Recorded Client Recorded Date Recorded By Document 08/18/20 13:08 [facility] Desktop 08/18/20 13:21 [facility] 08/18/20 13:08 Wound Center Nurse 1 #2- R HALLUX PLANTAR -Combined with other wound No -Current Size (cm) - Length 1.2 -Current Size (cm) - Width 1.5 -Current Size (cm) - Depth 0.1 -Total Square Cm 1.80 -Date of Last Picture (Recall this 08/18/20 field) -Photo Taken Yes -Epithelialization None Present -Tunneling No -Undermining/Tunneling No -Circular Undermining No -Exudate Amt Small -Exudate Type Serosanguineous -Wound Margin Distinct, Outline Attached -Granulation Amt Large (67-100%) -Granulation Quality Red -Slough/Fibrin Yes -Necrosis Amt Small (1-33%) -Necrotic Tissue Type Adherent Slough -Texture (Lisa-wound Skin Appearance) Assessed,Callus ,Localized Edema,Scarring -Moisture (Lisa-wound Skin Appearance) Assessed -Color (Lisa-wound Skin Appearance) Assessed, Erythema -Temperature (Lisa-wound Skin Hot Appearance) -Tenderness on Palpation (Lisa-wound Yes Skin Appearance) -Ulcer Cleansing Rinsed/ Irrigated with Saline -Foul Odor after Cleansing No -Anesthetic Used 4% Lidocaine Solution Lower Limb Edema Present Yes Right Calf (cm) 39.5 Right Ankle (cm) 24.1 Left Calf (cm) 40.2 Left Ankle (cm) 23 post debridement right plantar hallux measurement: 1.3 x 1.6 x 0.1 cm Wound debrided: plantar hallux, right Wound Grade/Stage: 1 Type of Debridement: Excisional debridement Anesthesia Used: 4% Lidocaine Solution Depth: in the subcutaneous layer Percentage of wound debrided: 100 Instrument Used: #15 blade Tissue Removed: fibrous, devitalized subcutaneous, biofilm, slough Severity: Fat Layer Exposed Amount of bleeding with debridement: Mild Bleeding Controlled with: Pressure Patient tolerated procedure: Patient tolerated procedure well Assessment/Plan Assessment/Plan (1) Type 2 diabetes mellitus with diabetic polyneuropathy: CODE(S): E11.42 - Type 2 diabetes mellitus with diabetic polyneuropathy (2) Chronic ulcer of right foot with fat layer exposed: CODE(S): L97.512 - Non-pressure chronic ulcer of other part of right foot with fat layer exposed (3) Hallux limitus of right foot: CODE(S): M20.5X1 - Other deformities of toe(s) (acquired), right foot (4) Other specified peripheral vascular diseases: CODE(S): I73.89 - Other specified peripheral vascular diseases (5) Venous insufficiency: CODE(S): I87.2 - Venous insufficiency (chronic) (peripheral) (6) Bilateral lower extremity edema: CODE(S): R60.0 - Localized edema (7) Ingrowing right great toenail: CODE(S): L60.0 - Ingrowing nail PLAN: I reviewed and discussed his case today. Debridement was performed today as noted in the clinical panel to all of the ulcer sites. The following work up and care recommendations were made: Dressing: Aquacel Ag Wash: Antibacterial soap and water Tissue growth optimization: Advanced product application will be considered if lack of progress is noted with traditional wound care plan and also once resolution of cellulitis. Offload: To resume CAM Walker use with Plastizote offloading pocket. He has this at home Vascular: I recommend updating noninvasive vascular studies including segmental pressures thigh and leg, HERI, and systolic toe pressures. Order was provided Edema: To elevate limbs at rest. Venous Doppler with reflux evaluation was ordered Infection: He has apparent cellulitis and a prescription for for Keflex was sent to [facility]. He is advised on safe and proper use. It is not clear if he had a true penicillin allergy from childhood however we will avoid a true penicillin at this time. Aerobic, anaerobic, MRSA PCR culture was obtained and results are pending. Pain: Not present due to neuropathy Host factors: He is diabetic and this may contribute to delays in healing. To continue to work with his primary care physician on diet, activity, and medication management. Imaging: Foot x-ray was ordered Labs: Labs including CBC, CMP, ESR, C-reactive protein were ordered. I see that he had a 10.6 hemoglobin A1c last year in 2020. He reports his last reading was 7%. This will be requested from his primary care physician. I answered all the patient's questions. To return to the wound healing center in 1 week or call sooner if the patient has any questions or concerns. If he has any progression of his cellulitis area or systemic illness development he was advised to call the office or go to the emergency room. Note: [employer] speech recognition preschool teacher assistant software was used to create portions of this document. Sound-alike and misspelled words, as well as other preschool teacher assistant errors may be contained in the documentation. 31 minutes was spent on this encounter. This included face to face and non face to face care including preparing for the visit, reviewing the history, performing the exam, counseling and providing education to the patient, family, or caregiver, ordering medications/test/ procedures if indicated as documented, communicating with other healthcare providers, documenting information in the medical record, interpreting / sharing this information when indicated as documented, and care coordination.
--- NOTE | 2020-08-18 14:35 | RAD_ITS ---
STUDY: X-RAY - RIGHT FOOT CLINICAL: Male, 55 years old. ULCER TECHNIQUE: 3 view(s) of the foot. COMPARISON: None. FINDINGS: Normal talus, calcaneus, and tarsal bones. Normal visualized subtalar, talonavicular, calcaneocuboid, tarsal and tarsometatarsal articulations. Normal metatarsi. There is degenerative arthrosis of the metatarsophalangeal joint of the hallux . Normal tibial and fibular sesamoid bones. Normal interphalangeal joint of the great toe. Normal phalanges of the great toe. Normal second through fifth metatarsophalangeal joints. Normal interphalangeal joints and phalanges of the lesser toes. The soft tissue structures are unremarkable. RAD/Foot min 3 Views IMPRESSION: 1. Mild first metatarsophalangeal joint arthrosis. 2. No radiographic evidence of osteomyelitis. Electronically Signed: Bernabe Johnson MD at 9:27 EDT Tel , Service support ,
[2020-08-18 15:27] LABS: Absolute Lymphocyte Count 1.92 X10^3/uL (0.83-4.51); Absolute Neutrophil Count 3.5 X10^3/uL (2.0-7.7); Basophil# 0.01 X10^3/uL; Basophil% 0.2 % (0-1); Eosinophil# 0.23 X10^3/uL; Eosinophils% 3.6 % (0-5); Hematocrit 47.2 % (40-54); Hemoglobin 15.6 g/dL (13.0-16.5); Lymphocyte # 1.92 X10^3/ul (0.83-4.51); Lymphocyte % 30.2 % (19-41); Mean Corp Hgb Conc 33.1 g/dL (32-36); Mean Corpuscular Hgb 30.2 pg (27.0-32.0); Mean Corpuscular Volume 91.5 fL (80-94); Mean Platelet Vol. 10.6 fl (6.2-12.0); Monocyte# 0.66 X10^3/uL; Monocyte% 10.4 % (0-10); NRBC Flagged by Analyzer 0 % (0-5); Neutrophil # 3.52 X10^3/uL (2.7-7.7); Neutrophil % 55.4 % (47-70); Platelet Count 180 K/mm3 (150-450); RBC Distribution Width CV 12.8 % (11.6-14.6); RBC Distribution Width SD 43.2 fl (35.1-43.9); Red Blood Count 5.16 M/mm3 (4.6-6.2); White Blood Count 6.4 K/mm3 (4.4-11.0)
[2020-08-18 15:41] LABS: Erythrocyte Sedimentation Rate 25 mm/hr (0-20)
[2020-08-18 15:52] LABS: AST(SGOT) 19 U/L (15-37); Alanine Aminotransfer ALT/SGPT 22 U/L (16-61); Albumin, Serum 3.8 g/dL (3.2-5.0); Alkaline Phosphatase 75 U/L (45-117); Anion Gap 5 (5-15); BUN 15 mg/dL (7-18); BUN/Creat Ratio 17.9 RATIO (10-20); CRP < 2.90 mg/L (0.0-3.0); Calcium,Total 9.1 mg/dL (8.5-10.1); Chloride 106 mmol/L (98-107); Creatinine, Serum 0.84 mg/dL (0.70-1.30); EST Glomerular Filtration Rate 101 mL/min (>60); Est Glom Filt Rate - Afr Amer 122 mL/min (>60); Estimated Creatinine Clearance 93.87 ml/min; Globulin 3.9 g/dL (2.2-4.2); Glucose 110 mg/dL (74-106); Potassium 4.1 mmol/L (3.5-5.1); Protein, Total 7.7 g/dL (6.4-8.2); Sodium Level 139 mmol/L (136-145)
[2020-08-19 14:18] LABS: M R Staph aureus DNA By PCR Negative (Negative); Probe Check PASS; Specimen Processing Control PASS; Staph aureus DNA By PCR NEGATIVE (Negative)
== END 2020-08-23 23:59 ==
LOC: WC 12:45
PROVIDERS: PCP Family Medicine; Visit Provider Podiatrist
DX: E11.621 Type 2 diabetes mellitus with foot ulcer (principal); E11.51 Type 2 diabetes mellitus with diabetic peripheral angiopathy without gangrene; I10 Essential (primary) hypertension; L60.0 Ingrowing nail; I25.2 Old myocardial infarction; G47.33 Obstructive sleep apnea (adult) (pediatric); I25.10 Atherosclerotic heart disease of native coronary artery without angina pectoris; E78.00 Pure hypercholesterolemia, unspecified; I87.2 Venous insufficiency (chronic) (peripheral); M20.5X1 Other deformities of toe(s) (acquired), right foot; E11.42 Type 2 diabetes mellitus with diabetic polyneuropathy; Z79.899 Other long term (current) drug therapy; Z79.82 Long term (current) use of aspirin; Z79.84 Long term (current) use of oral hypoglycemic drugs
CPT/HCPCS: 11042; 36415; 73630; 80053; 85025; 85652; 86140; 87070; 87075; 87077; 87186; 87205; 87640; 99213; G0463

== ENCOUNTER → 2020-09-21 09:12 | Outpatient (CLI) | payer OTHER, SELFPAY ==
[2020-09-08 08:04] VITALS: BMI 38.0
[2020-09-21 10:00] LABS: Erythrocyte Sedimentation Rate 1 mm/hr (0-20)
[2020-09-21 10:02] LABS: Absolute Lymphocyte Count 1.74 X10^3/uL (0.83-4.51); Basophil# 0.01 X10^3/uL; Basophil% 0.2 % (0-1); Eosinophil# 0.14 X10^3/uL; Eosinophils% 2.6 % (0-5); Hematocrit 50.3 % (40-54); Hemoglobin 16.1 g/dL (13.0-16.5); Lymphocyte # 1.74 X10^3/ul (0.83-4.51); Lymphocyte % 32.2 % (19-41); Mean Corpuscular Hgb 30.4 pg (27.0-32.0); Mean Corpuscular Volume 94.9 fL (80-94); Mean Platelet Vol. 10.7 fl (6.2-12.0); Monocyte# 0.47 X10^3/uL; Monocyte% 8.7 % (0-10); NRBC Flagged by Analyzer 0 % (0-5); Neutrophil # 3.02 X10^3/uL (2.7-7.7); Neutrophil % 55.7 % (47-70); Platelet Count 155 K/mm3 (150-450); RBC Distribution Width CV 13.3 % (11.6-14.6); RBC Distribution Width SD 46.5 fl (35.1-43.9); White Blood Count 5.4 K/mm3 (4.4-11.0)
[2020-09-21 10:30] LABS: AST(SGOT) 19 U/L (15-37); Alanine Aminotransfer ALT/SGPT 25 U/L (16-61); Albumin, Serum 3.7 g/dL (3.2-5.0); Alkaline Phosphatase 78 U/L (45-117); Anion Gap 6 (5-15); BUN 21 mg/dL (7-18); BUN/Creat Ratio 22.7 RATIO (10-20); CRP < 2.90 mg/L (0.0-3.0); Calcium,Total 8.8 mg/dL (8.5-10.1); Chloride 105 mmol/L (98-107); Cholesterol 138 mg/dL (200); Creatinine, Serum 0.93 mg/dL (0.70-1.30); EST Glomerular Filtration Rate 89 mL/min (>60); Est Glom Filt Rate - Afr Amer 108 mL/min (>60); Globulin 3.7 g/dL (2.2-4.2); Glucose 136 mg/dL (74-106); High Density Lipoprotein 29 mg/dL; Potassium 4.2 mmol/L (3.5-5.1); Protein, Total 7.4 g/dL (6.4-8.2); Sodium Level 139 mmol/L (136-145); Triglycerides 273 mg/dL; Very Low Density Lipoprotein 55 mg/dL (5-40)
[2020-09-21 10:39] LABS: Microalbumin,Random Urine 13.3 mg/L (NO RANGE EST.); Microalbumin:Creatinine Ratio 14.4 mg/g CRE (<30 mg/g CRE)
== END ==
PROVIDERS: PCP Family Medicine; Visit Provider Family Medicine
DX: E11.40 Type 2 diabetes mellitus with diabetic neuropathy, unspecified (principal); E11.621 Type 2 diabetes mellitus with foot ulcer; I10 Essential (primary) hypertension; L97.509 Non-pressure chronic ulcer of other part of unspecified foot with unspecified severity
CPT/HCPCS: 36415; 80053; 80061; 82043; 82570; 83036; 85025; 85652; 86140

== ENCOUNTER 2020-09-22 08:00 | Outpatient (RCR) | payer OTHER, SELFPAY ==
[2020-08-24 00:45] VITALS: BP 145/69; PULSE 65; RESP 16; TEMP 36.3
[2020-08-25 09:05] VITALS: BP 177/89; PULSE 60; RESP 16; TEMP 36.3; BMI 38.0
--- NOTE | 2020-08-25 13:05 | PCM.WC.PN ---
History of Present Illness Date of Service: 08/25/20 Chief Complaint: Right great toe ulcer History of Wound: This 54-year-old male with multiple comorbidities including diabetes and hypertension presents for chronic recurrent right great toe ulcer. 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 He denies odor or trauma. He denies fever, chill, nausea, vomiting. He does have some continued redness however it is less intense. He is taking the cephalexin as advised without known allergic reaction. Progress of Wound: Stable Objective Data Objective Data Vital Signs: Vital Signs Temp Pulse Resp BP 97.3 F L 60 16 177/89 H 08/25/20 09:05 08/25/20 09:05 08/25/20 09:05 08/25/20 09:05 Weight: 113.398 kg Body Mass Index (BMI) 38.0 Physical Exam Const alert and oriented x3 General Appearance: cooperative HEENT normocephalic Extremity Extremity Narrative: No calf tenderness Diminished pulses Muscle wasting noted Decreased noted first metatarsophalangeal joint range of motion, right No bogginess or fluctuance General Extremity: edema and no tenderness to palpation of joints or extremities; Negative for cyanosis Skin Skin Narrative: no purulence, no streaking, no odor. Erythema extends hallux and distal medial forefoot without streaking; decreased intensity noted. Granular pale based ulcer General Skin Exam: Negative for erythema Neuro Neuro Narrative: lack of normal epicritic sensation via light touch is consistent with neuropathy status Psych cooperative and affect normal Debridement Note Debridement Note Post-Debridement Measurements and Additional Note: Post-Debridement Measurements/Treatment - Nurse 1 - General Ulcer Assessment Start: 08/25/20 09:05 Freq: Status: Active Protocol: FIDEL.TERESA Activity Type Activity Date Activity User E-Sign Co-Sign Detail Recorded Client Recorded Date Recorded By Document 08/25/20 09:05 MS [id number] 08/25/20 09:13 MS 08/25/20 09:05 - Today's Visit Information Type of service Follow-up Visit (Physician/TEASEL GIG OPERATOR ) Arrival Mode Ambulatory Transfer Assistance None Patient Identification Verified (Name & Yes ) Patient Requires Transmission-Based No Precautions Safety Precautions NA Height and Weight Body Mass Index (BMI) 38.0 BMI Classification Obese Vital Signs Temperature (97.8 F-99.1 F) 97.3 F L Temperature Source Temporal Pulse Rate (60-100) 60 Pulse Location Monitor Respiratory Rate (12-18) 16 Respiratory rate source Observation Blood Pressure (90/60-120/80) 177/89 H Blood Pressure Mean (mm Hg) 118 Source Monitor Position Sitting Blood Pressure Location Left Arm History Since Last Visit- (Skip if this is Patient's initial visit) Have you changed medications since your No last visit? Any new allergies or adverse reactions No Had a fall/change in ADL's that may No increase risk of falls Signs or symptoms of abuse and/or No neglect since last visit Have you been in the hospital since your No last visit? Has dressing in place as prescribed Yes Has compression in place as prescribed N/A Has offloadiing in place as prescribed N/A Experienced any changes in pain level or No management Left Footwear Regular Shoe Right Footwear Regular Shoe Pain Scale: 0-10 Numeric Is Patient Pain Free? Yes WC - Nurse 1 - General Ulcer Measurement Start: 08/25/20 09:05 Freq: Status: Active Protocol: Activity Type Activity Date Activity User E-Sign Co-Sign Detail Recorded Client Recorded Date Recorded By Document 08/25/20 09:05 MS [id number] 08/25/20 09:13 MS 08/25/20 09:05 Wound Center Nurse 1 #2- R HALLUX PLANTAR -Current Size (cm) - Length 2 -Current Size (cm) - Width 0.8 -Current Size (cm) - Depth 0.3 -Total Square Cm 1.6 -Exudate Amt Medium -Exudate Type Serosanguineous -Wound Margin Distinct, Outline Attached -Granulation Amt Medium (34-66%) -Granulation Quality Pale -Slough/Fibrin Yes -Necrosis Amt Medium (34-66%) -Necrotic Tissue Type Adherent Slough -Texture (Lisa-wound Skin Appearance) No Abnormality -Moisture (Lisa-wound Skin Appearance) No Abnormality -Color (Lisa-wound Skin Appearance) No Abnormality -Temperature (Lisa-wound Skin No Abnormality Appearance) (Pt Warm) -Tenderness on Palpation (Lisa-wound No Skin Appearance) -Ulcer Cleansing Rinsed/ Irrigated with Saline -Foul Odor after Cleansing No -Anesthetic Used 4% Lidocaine Solution WC - Nurse 2 - General Ulcer CM Notes Start: 08/25/20 09:05 Freq: Status: Active Protocol: Activity Type Activity Date Activity User E-Sign Co-Sign Detail Recorded Client Recorded Date Recorded By Document 08/25/20 09:20 [id number] 08/25/20 09:22 JF 08/25/20 09:20 Wound Center Nurse 2 -Time 09:20 -Correct Patient Yes -Correct Side, Site, Position Yes -Correct Procedure Yes -Procedure Performed Yes -Type of Procedure Debridement -Clinical Debridement Subcutaneous -Tissue Removed Subcutaneous -Post Debridement (cm) - Length 0.8 -Post Debridement (cm) - Width 0.9 -Post Debridement (cm) - Depth 0.1 -Total Square (Post) (cm) 0.72 -Area of Debridement (cm) - Length 0.8 -Area of Debridement (cm) - Width 0.9 -Total Square (Area) (cm) 0.72 -Tunneling No -Undermining/Tunneling No -Circular Undermining No -Wound/Ulcer Outcome Not Healed -Ulcer Cleansing Rinsed/ Irrigated with Saline -Foul Odor after Cleansing No -Bioengineered Tissue No -Bleeding Controlled with Pressure -Offloading No -Treatment Response Procedure Tolerated Well -Debridement - Subq, 1st 20sq cm Yes Pain Scale: 0-10 Numeric Is Patient Pain Free? Yes - Nurse 3 - General Ulcer D/C NN Start: 08/25/20 09:05 Freq: Status: Active Protocol: Activity Type Activity Date Activity User E-Sign Co-Sign Detail Recorded Client Recorded Date Recorded By Document 08/25/20 09:32 [id number] 08/25/20 09:33 RB 08/25/20 09:32 Wound Care Nurse 3 #2- R HALLUX PLANTAR -Ulcer Cleansing Rinsed/ Irrigated with Saline -Primary Dressing Applied Aquacel AG 4x4 -Primary Dressing Covered/Secured with Dry Gauze, Secured with Tape -Aquacel AG 4x4 1 Treatment Response Procedure Tolerated Well WC - Visit Discharge Discharge Condition Stable Ambulatory Status Ambulatory Transportation Private Auto Medication Reconcilliation completed & No provided to patient/care provider Clinical Summary of Care Provided Yes Wound debrided: plantar hallux Wound Grade/Stage: 1 Type of Debridement: Excisional debridement Anesthesia Used: 4% Lidocaine Solution Depth: in the subcutaneous layer Percentage of wound debrided: 100 Instrument Used: #15 blade Tissue Removed: fibrous, devitalized subcutaneous, biofilm, slough Severity: Fat Layer Exposed Amount of bleeding with debridement: Mild Bleeding Controlled with: Pressure Patient tolerated procedure: Patient tolerated procedure well Assessment/Plan Assessment/Plan (1) Cellulitis of right lower limb: CODE(S): L03.115 - Cellulitis of right lower limb (2) Chronic ulcer of right foot with fat layer exposed: CODE(S): L97.512 - Non-pressure chronic ulcer of other part of right foot with fat layer exposed (3) Type 2 diabetes mellitus with diabetic polyneuropathy: CODE(S): E11.42 - Type 2 diabetes mellitus with diabetic polyneuropathy (4) Hallux limitus of right foot: CODE(S): M20.5X1 - Other deformities of toe(s) (acquired), right foot PLAN: I reviewed and discussed his case today. Debridement was performed today as noted in the clinical panel to all of the ulcer sites. The following work up and care recommendations were made: Dressing: Aquacel Ag Wash: Antibacterial soap and water Tissue growth optimization: Advanced product application will be considered if lack of progress is noted with traditional wound care plan and also once resolution of cellulitis. Offload: To resume CAM Walker use with Plastizote offloading pocket. He has this at home. Compliance was discussed and is necessary for treatment success; he presents today with a high top work boot. Vascular: I recommend updating noninvasive vascular studies including segmental pressures thigh and leg, HERI, and systolic toe pressures. Order was provided and he is scheduled Edema: To elevate limbs at rest. Venous Doppler with reflux evaluation was ordered Infection: He has apparent cellulitis and a prescription for for Keflex was [facility] to [facility]. He is advised on safe and proper use. Cultures were reviewed with Staphylococcus pseudointermediu, Staphylococcus epidermidis and Streptococcus group C. A prescription for doxycycline was sent to his choice. He was advised on safe and proper use. To avoid sun exposure. Pain: Not present due to neuropathy Host factors: He is diabetic and this may contribute to delays in healing. To continue to work with his primary care physician on diet, activity, and medication management. Imaging: His foot x-ray (3 views) were also reviewed without osseous destruction adjacent to the ulcer site. There is no foreign body or soft tissue emphysema. Labs: white blood cell count 6.4, ESR 25, C-reactive protein less than 2.9, albumin 3.8. His last A1c at [facility] was over 10. Updated A1c from Dr. Lubin's office was 7.3% on 02-12-2021. I answered all the patient's questions. To return to the wound healing center in 1 week or call sooner if the patient has any questions or concerns. If he has any progression of his cellulitis area or systemic illness development he was advised to call the office or go to the emergency room. Note: [employer] speech recognition senior brand manager software was used to create portions of this document. Sound-alike and misspelled words, as well as other senior brand manager errors may be contained in the documentation. The medical decision making level is limited based on data including the review of prior external notes, review of a prior test, or ordering a test. The problems addressed require a low medical decision making level which includes two or more problems, a stable chronic illness, or an acute uncomplicated illness or injury.
[2020-09-01 08:21] VITALS: BP 149/75; PULSE 59; RESP 18; TEMP 36.1; BMI 38.0
--- NOTE | 2020-09-01 12:22 | PN.PCM_ITS ---
History of Present Illness Date of Service: 09/01/20 Chief Complaint: Right great toe ulcer History of Wound: This 54-year-old male with multiple comorbidities including diabetes and hypertension presents for chronic recurrent right great toe ulcer. He works a lot and is in boots; he presents with this on today. He relates he would did a good job of offloading over the weekend but not in the middle of the week. He denies fever, chill, nausea, vomiting. His redness has resolved and he denies odor or pain. Progress of Wound: Improving Objective Data Objective Data Vital Signs: Vital Signs Temp Pulse Resp BP 97 F L 59 L 18 149/75 H 09/01/20 08:21 09/01/20 08:21 09/01/20 08:21 09/01/20 08:21 Weight: 113.398 kg Body Mass Index (BMI) 38.0 Physical Exam Const alert and oriented x3 General Appearance: cooperative HEENT normocephalic Extremity Extremity Narrative: No calf tenderness Diminished pulses Muscle wasting noted Decreased noted first metatarsophalangeal joint range of motion, right No bogginess or fluctuance General Extremity: edema and no tenderness to palpation of joints or extremities; Negative for cyanosis Skin Skin Narrative: no purulence, no streaking, no odor. Resolved erythema. Granular pale based ulcer General Skin Exam: Negative for erythema Neuro Neuro Narrative: lack of normal epicritic sensation via light touch is consistent with neuropathy status Psych cooperative and affect normal Debridement Note Debridement Note Post-Debridement Measurements and Additional Note: Post-Debridement Measurements/Treatment - Nurse 1 - General Ulcer Assessment Start: 08/25/20 09:05 Freq: Status: Active Protocol: ALIYA Activity Type Activity Date Activity User E-Sign Co-Sign Detail Recorded Client Recorded Date Recorded By Document 08/25/20 09:05 MS [id number] 08/25/20 09:13 MS Document 09/01/20 08:21 RB [id number] 09/01/20 08:22 RB 08/25/20 09/01/20 09:05 08:21 - Today's Visit Information Type of service Follow-up Visit Follow-up Visit (Physician/DUST PULLER (Physician/DUST PULLER ) ) Arrival Mode Ambulatory Ambulatory Transfer Assistance None None Patient Identification Verified (Name & Yes Yes ) Patient Requires Transmission-Based No No Precautions Safety Precautions NA Height and Weight Body Mass Index (BMI) 38.0 38.0 BMI Classification Obese Obese Vital Signs Temperature (97.8 F-99.1 F) 97.3 F L 97 F L Temperature Source Temporal Temporal Pulse Rate (60-100) 60 59 L Pulse Location Monitor Monitor Respiratory Rate (12-18) 16 18 Respiratory rate source Observation Observation Blood Pressure (90/60-120/80) 177/89 H 149/75 H Blood Pressure Mean (mm Hg) 118 99 Source Monitor Monitor Position Sitting Semi-Fowlers Blood Pressure Location Left Arm Left Arm History Since Last Visit- (Skip if this is Patient's initial visit) Have you changed medications since your No No last visit? Any new allergies or adverse reactions No No Had a fall/change in ADL's that may No No increase risk of falls Signs or symptoms of abuse and/or No No neglect since last visit Have you been in the hospital since your No No last visit? Has dressing in place as prescribed Yes Yes Has compression in place as prescribed N/A No Has offloadiing in place as prescribed N/A Yes Experienced any changes in pain level or No No management Left Footwear Regular Shoe Right Footwear Regular Shoe Pain Scale: 0-10 Numeric Is Patient Pain Free? Yes Yes WC - Nurse 1 - General Ulcer Measurement Start: 08/25/20 09:05 Freq: Status: Active Protocol: Activity Type Activity Date Activity User E-Sign Co-Sign Detail Recorded Client Recorded Date Recorded By Document 08/25/20 09:05 MS [id number] 08/25/20 09:13 MS Document 09/01/20 08:21 RB [id number] 09/01/20 08:22 RB 08/25/20 09/01/20 09:05 08:21 Wound Center Nurse 1 #2- R HALLUX PLANTAR -Combined with other wound No -Current Size (cm) - Length 2 0.5 -Current Size (cm) - Width 0.8 0.6 -Current Size (cm) - Depth 0.3 0.1 -Total Square Cm 1.6 0.30 -Tunneling No -Undermining/Tunneling No -Circular Undermining No -Exudate Amt Medium Small -Exudate Type Serosanguineous Serosanguineous -Wound Margin Distinct, Thickened Outline Attached -Granulation Amt Medium (34-66%) Medium (34-66%) -Granulation Quality Pale [place] -Slough/Fibrin Yes Yes -Necrosis Amt Medium (34-66%) Small (1-33%) -Necrotic Tissue Type Adherent Slough Adherent Slough -Structure Exposed N/A -Texture (Lisa-wound Skin Appearance) No Abnormality Callus -Moisture (Lisa-wound Skin Appearance) No Abnormality Assessed -Color (Lisa-wound Skin Appearance) No Abnormality Assessed -Temperature (Lisa-wound Skin No Abnormality No Abnormality Appearance) (Pt Warm) (Pt Warm) -Tenderness on Palpation (Lisa-wound No No Skin Appearance) -Ulcer Cleansing Rinsed/ Wound Cleanser Irrigated with Saline -Foul Odor after Cleansing No No -Anesthetic Used 4% Lidocaine 4% Lidocaine Solution Solution WC - Nurse 2 - General Ulcer CM Notes Start: 08/25/20 09:05 Freq: Status: Active Protocol: Activity Type Activity Date Activity User E-Sign Co-Sign Detail Recorded Client Recorded Date Recorded By Document 08/25/20 09:20 [id number] 08/25/20 09:22 Document 09/01/20 08:26 [id number] 09/01/20 08:28 08/25/20 09/01/20 09:20 08:26 Wound Center Nurse 2 #2- R HALLUX PLANTAR -Time 09:20 08:26 -Correct Patient Yes Yes -Correct Side, Site, Position Yes Yes -Correct Procedure Yes Yes -Procedure Performed Yes Yes -Type of Procedure Debridement Debridement -Clinical Debridement Subcutaneous Subcutaneous -Tissue Removed Subcutaneous Subcutaneous -Post Debridement (cm) - Length 0.8 1 -Post Debridement (cm) - Width 0.9 6 -Post Debridement (cm) - Depth 0.1 0.2 -Total Square (Post) (cm) 0.72 6 -Area of Debridement (cm) - Length 0.8 1 -Area of Debridement (cm) - Width 0.9 6 -Total Square (Area) (cm) 0.72 6 -Tunneling No No -Undermining/Tunneling No No -Circular Undermining No No -Wound/Ulcer Outcome Not Healed Not Healed -Ulcer Cleansing Rinsed/ Rinsed/ Irrigated with Irrigated with Saline Saline -Foul Odor after Cleansing No No -Bioengineered Tissue No No -Bleeding Controlled with Pressure Pressure -Offloading No Yes -Type of Offloading Camwalker -Treatment Response Procedure Procedure Tolerated Well Tolerated Well -Debridement - Subq, 1st 20sq cm Yes Yes Pain Scale: 0-10 Numeric Is Patient Pain Free? Yes Yes WC - Nurse 3 - General Ulcer D/C NN Start: 08/25/20 09:05 Freq: Status: Active Protocol: Activity Type Activity Date Activity User E-Sign Co-Sign Detail Recorded Client Recorded Date Recorded By Document 08/25/20 09:32 RB [id number] 08/25/20 09:33 RB Document 09/01/20 08:37 DL [id number] 09/01/20 08:38 DL 08/25/20 09/01/20 09:32 08:37 Wound Care Nurse 3 #2- R HALLUX PLANTAR -Ulcer Cleansing Rinsed/ Rinsed/ Irrigated with Irrigated with Saline Saline -Negative Pressure Wound Therapy Discontinue -Primary Dressing Applied Aquacel AG 4x4 C Hydrogel ($) -Primary Dressing Covered/Secured with Dry Gauze, Dry Gauze, Secured with Secured with Tape Tape -Aquacel AG 4x4 1 Treatment Response Procedure Procedure Tolerated Well Tolerated Well Pain Scale: 0-10 Numeric Is Patient Pain Free? Yes WC - Visit Discharge Discharge Condition Stable Stable Ambulatory Status Ambulatory Ambulatory Transportation Private Auto Private Auto Medication Reconcilliation completed & No provided to patient/care provider Clinical Summary of Care Provided Yes Wound debrided: plantar medial right hallux Wound Grade/Stage: 1 Type of Debridement: Excisional debridement Anesthesia Used: 4% Lidocaine Solution Depth: in the subcutaneous layer Percentage of wound debrided: 100 Instrument Used: #15 blade Tissue Removed: fibrous, devitalized subcutaneous, biofilm, slough Severity: Fat Layer Exposed Amount of bleeding with debridement: Mild Bleeding Controlled with: Pressure Patient tolerated procedure: Patient tolerated procedure well Assessment/Plan Assessment/Plan (1) Cellulitis of right lower limb: CODE(S): L03.115 - Cellulitis of right lower limb (2) Chronic ulcer of right foot with fat layer exposed: CODE(S): L97.512 - Non-pressure chronic ulcer of other part of right foot with fat layer exposed (3) Type 2 diabetes mellitus with diabetic polyneuropathy: CODE(S): E11.42 - Type 2 diabetes mellitus with diabetic polyneuropathy (4) Hallux limitus of right foot: CODE(S): M20.5X1 - Other deformities of toe(s) (acquired), right foot PLAN: I reviewed and discussed his case today. Debridement was performed today as noted in the clinical panel to all of the ulcer sites. The following work up and care recommendations were made: Dressing: Aquacel Ag Wash: Antibacterial soap and water Tissue growth optimization: Advanced product application will be considered if lack of progress is noted with traditional wound care plan and also once resolution of cellulitis. Offload: To resume CAM Walker use with Plastizote offloading pocket. He has this at home. Compliance was discussed and is necessary for treatment success on a consistent basis and not just the weekend. Vascular: I recommend updating noninvasive vascular studies including segmental pressures thigh and leg, HERI, and systolic toe pressures. Order was provided and he is scheduled. Edema: To elevate limbs at rest. Venous Doppler with reflux evaluation was ordered Infection: He has apparent cellulitis and a prescription for for Keflex was sent to [facility]. He is advised on safe and proper use. Cultures were reviewed with Staphylococcus pseudointermediu, Staphylococcus epidermidis and Streptococcus group C. A prescription for doxycycline was sent to his choice. He was advised on safe and proper use. To avoid sun exposure. Local signs of infection have resolved and additional antibiotics and I recommend at this time. Pain: Not present due to neuropathy Host factors: He is diabetic and this may contribute to delays in healing. To continue to work with his primary care physician on diet, activity, and medication management. Imaging: His foot x-ray (3 views) were also reviewed without osseous destruction adjacent to the ulcer site. There is no foreign body or soft tissue emphysema. Labs: white blood cell count 6.4, ESR 25, C-reactive protein less than 2.9, albumin 3.8. His last A1c at [facility] was over 10. Updated A1c from Dr. Lubin's office was 7.3% on 02-12-2021. I answered all the patient's questions. To return to the wound healing center in 1 week or call sooner if the patient has any questions or concerns. If he has any progression of his cellulitis area or systemic illness development he was advised to call the office or go to the emergency room. Note: [employer] speech recognition split leather mosser software was used to create portions of this document. Sound-alike and misspelled words, as well as other split leather mosser errors may be contained in the documentation.
--- NOTE | 2020-09-01 13:11 | VDLE_ITS ---
Reason For Study: venous insufficiency RIGHT LEFT CFV is compressible, spontaneous, phasic, CFV is compressible, spontaneous, phasic, competent and demonstrates normal competent, and demonstrates normal augmentation. augmentation. FV is compressible, spontaneous, phasic, FV is compressible, spontaneous, phasic, competent and demonstrates normal competent and demonstrates normal augmentation. augmentation. POP V is compressible, spontaneous, phasic, POP V is compressible, spontaneous, phasic, competent and demonstrates normal competent and demonstrates normal augmentation. augmentation. T/P Trunk is compressible. T/P Trunk is compressible. PTV is compressible. PTV is compressible. RT PerV is compressible. LT PerV is compressible. SFJ is competent and measures 0.82 x 0.97 cm. SFJ is competent and measures 0.66 x 0.78 cm. GSV proximal thigh measures 0.31 x 0.37 cm. GSV proximal thigh measures 0.60 cm. GSV at knee measures 0.37 x 0.42 cm. GSV at knee measures 0.31 x 0.36 cm. GSV is competent throughout. GSV is competent throughout. SSV proximal calf is competent and measures SSV proximal calf is competent and measures 0.29 x 0.39 cm. 0.34 x 0.44 cm. Procedure This is a venous duplex using B-mode, color flow and spectral Doppler. Exam performed in department. The exam was diagnostic. VL/Venous Duplex US - Pranay Extrem Interpretation Summary Deep veins of the lower extremities are bilaterally patent and compressible seg mentally. There is no evidence of deep vein thrombosis on either side. Valvular competence appears in tact within the proximal deep venous systems bilaterally. The great saphenous veins appear bila terally patent and compressible segmentally. Sapheno-femoral junctions are bilaterally competent . Valvular competence appears to be intact segmentally within the great saphenous veins bilaterally. Small saphenous veins are patent and competent bilaterally. Ordering Physician: Richelle Sharpe Referring Physician: Austin Lubin Performed By: Berenice Esposito, RAUL, RVT
[2020-09-08 08:04] VITALS: BP 153/64; PULSE 58; RESP 18; TEMP 35.6; BMI 38.0
--- NOTE | 2020-09-08 08:32 | PN.PCM_ITS ---
History of Present Illness Date of Service: 09/08/20 Chief Complaint: Right great toe ulcer History of Wound: This 55-year-old male with multiple comorbidities including diabetes and hypertension presents for chronic recurrent right great toe ulcer. He offloads with his cam walker boot. He denies fever, chill, nausea, vomiting. His redness has resolved and he denies odor or pain. He completed his vein and artery studies and would like to go over the results. Progress of Wound: Improving Objective Data Objective Data Vital Signs: Vital Signs Temp Pulse Resp BP 96.1 F L 58 L 18 153/64 H 09/08/20 08:04 09/08/20 08:04 09/08/20 08:04 09/08/20 08:04 Weight: 113.398 kg Body Mass Index (BMI) 38.0 Physical Exam Const alert and oriented x3 General Appearance: cooperative HEENT normocephalic Extremity Extremity Narrative: No calf tenderness Diminished pulses Muscle wasting noted decreased loaded first metatarsal phalangeal joint range of motion General Extremity: edema and no tenderness to palpation of joints or extremities; Negative for cyanosis Skin Skin Narrative: no purulence, no streaking, no odor, no infection General Skin Exam: Negative for erythema Neuro Neuro Narrative: lack of normal epicritic sensation via light touch is consistent with neuropathy status Psych cooperative and affect normal Debridement Note Debridement Note Post-Debridement Measurements and Additional Note: Post-Debridement Measurements/Treatment - Nurse 1 - General Ulcer Assessment Start: 08/25/20 09:05 Freq: Status: Active Protocol: [email or web address].[email or web address] Activity Type Activity Date Activity User E-Sign Co-Sign Detail Recorded Client Recorded Date Recorded By Document 08/25/20 09:05 MS [id number] 08/25/20 09:13 MS Document 09/01/20 08:21 RB [id number] 09/01/20 08:22 RB Document 09/08/20 08:04 DL [id number] 09/08/20 08:09 DL 08/25/20 09/01/20 09/08/20 09:05 08:21 08:04 - Today's Visit Information Type of service Follow-up Visit Follow-up Visit Follow-up Visit (Physician/NATURAL RESOURCES SPECIALIST (Physician/NATURAL RESOURCES SPECIALIST (Physician/NATURAL RESOURCES SPECIALIST ) ) ) Arrival Mode Ambulatory Ambulatory Ambulatory Transfer Assistance None None None Patient Identification Verified (Name & Yes Yes Yes ) Patient Requires Transmission-Based No No No Precautions Safety Precautions NA Finger Stick Blood Sugar(mg/dl) (if didnt check indicated): Blood Sugar Stated by Patient Height and Weight Body Mass Index (BMI) 38.0 38.0 38.0 BMI Classification Obese Obese Obese Vital Signs Temperature (97.8 F-99.1 F) 97.3 F L 97 F L 96.1 F L Temperature Source Temporal Temporal Temporal Pulse Rate (60-100) 60 59 L 58 L Pulse Location Monitor Monitor Monitor Respiratory Rate (12-18) 16 18 18 Respiratory rate source Observation Observation Observation Blood Pressure (90/60-120/80) 177/89 H 149/75 H 153/64 H Blood Pressure Mean (mm Hg) 118 99 93 Source Monitor Monitor Monitor Position Sitting Semi-Fowlers Semi-Fowlers Blood Pressure Location Left Arm Left Arm History Since Last Visit- (Skip if this is Patient's initial visit) Have you changed medications since your No No No last visit? Any new allergies or adverse reactions No No No Had a fall/change in ADL's that may No No No increase risk of falls Signs or symptoms of abuse and/or No No No neglect since last visit Have you been in the hospital since your No No No last visit? Has dressing in place as prescribed Yes Yes Yes Has compression in place as prescribed N/A No No Has offloadiing in place as prescribed N/A Yes Yes Experienced any changes in pain level or No No No management Left Footwear Regular Shoe Right Footwear Regular Shoe Surgical Shoe with pressure relief insole Pain Scale: 0-10 Numeric Is Patient Pain Free? Yes Yes No WC - Nurse 1 - General Ulcer Measurement Start: 08/25/20 09:05 Freq: Status: Active Protocol: Activity Type Activity Date Activity User E-Sign Co-Sign Detail Recorded Client Recorded Date Recorded By Document 08/25/20 09:05 MS [id number] 08/25/20 09:13 MS Document 09/01/20 08:21 RB [id number] 09/01/20 08:22 RB Document 09/08/20 08:04 DL [id number] 09/08/20 08:09 DL 08/25/20 09/01/20 09/08/20 09:05 08:21 08:04 Wound Center Nurse 1 #2- R HALLUX PLANTAR -Combined with other wound No No -Current Size (cm) - Length 2 0.5 0.6 -Current Size (cm) - Width 0.8 0.6 0.4 -Current Size (cm) - Depth 0.3 0.1 0.2 -Total Square Cm 1.6 0.30 0.24 -Photo Taken No -Tunneling No No -Undermining/Tunneling No No -Circular Undermining No No -Exudate Amt Medium Small Small -Exudate Type Serosanguineous Serosanguineous Serosanguineous -Wound Margin Distinct, Thickened Thickened Outline Attached -Granulation Amt Medium (34-66%) Medium (34-66%) Medium (34-66%) -Granulation Quality Pale Rankin Rankin -Slough/Fibrin Yes Yes Yes -Necrosis Amt Medium (34-66%) Small (1-33%) Small (1-33%) -Necrotic Tissue Type Adherent Slough Adherent Slough Adherent Slough -Structure Exposed N/A N/A -Texture (Lisa-wound Skin Appearance) No Abnormality Callus Callus -Moisture (Lisa-wound Skin Appearance) No Abnormality Assessed Assessed -Color (Lisa-wound Skin Appearance) No Abnormality Assessed Assessed -Temperature (Lisa-wound Skin No Abnormality No Abnormality No Abnormality Appearance) (Pt Warm) (Pt Warm) (Pt Warm) -Tenderness on Palpation (Lisa-wound No No No Skin Appearance) -Ulcer Cleansing Rinsed/ Wound Cleanser Rinsed/ Irrigated with Irrigated with Saline Saline -Foul Odor after Cleansing No No No -Anesthetic Used 4% Lidocaine 4% Lidocaine 5% Lidocaine Solution Solution Gel WC - Nurse 2 - General Ulcer CM Notes Start: 08/25/20 09:05 Freq: Status: Active Protocol: Activity Type Activity Date Activity User E-Sign Co-Sign Detail Recorded Client Recorded Date Recorded By Document 08/25/20 09:20 JF [id number] 08/25/20 09:22 JF Document 09/01/20 08:26 JF [id number] 09/01/20 08:28 08/25/20 09/01/20 09:20 08:26 Wound Center Nurse 2 #2- R HALLUX PLANTAR -Time 09:20 08:26 -Correct Patient Yes Yes -Correct Side, Site, Position Yes Yes -Correct Procedure Yes Yes -Procedure Performed Yes Yes -Type of Procedure Debridement Debridement -Clinical Debridement Subcutaneous Subcutaneous -Tissue Removed Subcutaneous Subcutaneous -Post Debridement (cm) - Length 0.8 1 -Post Debridement (cm) - Width 0.9 6 -Post Debridement (cm) - Depth 0.1 0.2 -Total Square (Post) (cm) 0.72 6 -Area of Debridement (cm) - Length 0.8 1 -Area of Debridement (cm) - Width 0.9 6 -Total Square (Area) (cm) 0.72 6 -Tunneling No No -Undermining/Tunneling No No -Circular Undermining No No -Wound/Ulcer Outcome Not Healed Not Healed -Ulcer Cleansing Rinsed/ Rinsed/ Irrigated with Irrigated with Saline Saline -Foul Odor after Cleansing No No -Bioengineered Tissue No No -Bleeding Controlled with Pressure Pressure -Offloading No Yes -Type of Offloading Camwalker -Treatment Response Procedure Procedure Tolerated Well Tolerated Well -Debridement - Subq, 1st 20sq cm Yes Yes Pain Scale: 0-10 Numeric Is Patient Pain Free? Yes Yes - Nurse 3 - General Ulcer D/C NN Start: 08/25/20 09:05 Freq: Status: Active Protocol: Activity Type Activity Date Activity User E-Sign Co-Sign Detail Recorded Client Recorded Date Recorded By Document 08/25/20 09:32 RB [id number] 08/25/20 09:33 RB Document 09/01/20 08:37 DL [id number] 09/01/20 08:38 DL 08/25/20 09/01/20 09:32 08:37 Wound Care Nurse 3 #2- R HALLUX PLANTAR -Ulcer Cleansing Rinsed/ Rinsed/ Irrigated with Irrigated with Saline Saline -Negative Pressure Wound Therapy Discontinue -Primary Dressing Applied Aquacel AG 4x4 C Hydrogel ($) -Primary Dressing Covered/Secured with Dry Gauze, Dry Gauze, Secured with Secured with Tape Tape -Aquacel AG 4x4 1 Treatment Response Procedure Procedure Tolerated Well Tolerated Well Pain Scale: 0-10 Numeric Is Patient Pain Free? Yes WC - Visit Discharge Discharge Condition Stable Stable Ambulatory Status Ambulatory Ambulatory Transportation Private Auto Private Auto Medication Reconcilliation completed & No provided to patient/care provider Clinical Summary of Care Provided Yes Wound debrided: plantar right hallux Wound Grade/Stage: 1 Type of Debridement: Excisional debridement Anesthesia Used: 4% Lidocaine Solution Depth: in the subcutaneous layer Percentage of wound debrided: 100 Instrument Used: #15 blade Tissue Removed: fibrous, devitalized subcutaneous, biofilm, slough Severity: Fat Layer Exposed Amount of bleeding with debridement: Mild Bleeding Controlled with: Pressure Patient tolerated procedure: Patient tolerated procedure well Assessment/Plan Assessment/Plan (1) Cellulitis of right lower limb: CODE(S): L03.115 - Cellulitis of right lower limb (2) Chronic ulcer of right foot with fat layer exposed: CODE(S): L97.512 - Non-pressure chronic ulcer of other part of right foot with fat layer exposed (3) Type 2 diabetes mellitus with diabetic polyneuropathy: CODE(S): E11.42 - Type 2 diabetes mellitus with diabetic polyneuropathy (4) Hallux limitus of right foot: CODE(S): M20.5X1 - Other deformities of toe(s) (acquired), right foot PLAN: I reviewed and discussed his case today. Debridement was performed today as noted in the clinical panel to all of the ulcer sites. The following work up and care recommendations were made: Dressing: Aquacel Ag Wash: Antibacterial soap and water Tissue growth optimization: Advanced product application will be considered if lack of progress is noted with traditional wound care plan and also once resolution of cellulitis. Offload: To resume CAM Walker use with Plastizote offloading pocket. He has this at home. Compliance was discussed and is necessary for treatment success on a consistent basis and not just the weekend. Vascular: I recommend updating noninvasive vascular studies including segmental pressures thigh and leg, HERI, and systolic toe pressures. Non invasive arterial study was completed on 09/01/20 with normal waveforms and ABIs. No gross abnormalities noted. Results were discussed. Edema: To elevate limbs at rest. Venous Doppler with reflux completed on 09/01/20 without venous insufficiency noted. Infection: He has apparent cellulitis and a prescription for for Keflex was sent to [facility]. He is advised on safe and proper use. Cultures were reviewed with Staphylococcus pseudointermediu, Staphylococcus epidermidis and Streptococcus group C. A prescription for doxycycline was sent to his choice. He was advised on safe and proper use. To avoid sun exposure. Local signs of infection have resolved and additional antibiotics and I recommend at this time. Pain: Not present due to neuropathy Host factors: He is diabetic and this may contribute to delays in healing. To continue to work with his primary care physician on diet, activity, and medic ation management. Imaging: His foot x-ray (3 views) were also reviewed without osseous destruction adjacent to the ulcer site. There is no foreign body or soft tissue emphysema. Labs: white blood cell count 6.4, ESR 25, C-reactive protein less than 2.9, albumin 3.8. His last A1c at [facility] was over 10. Updated A1c from Dr. Lubin's office was 7.3% on 02-12-2021. I answered all the patient's questions. To return to the wound healing center in 2 weeks or call sooner if the patient has any questions or concerns. If he has any progression of his cellulitis area or systemic illness development he was advised to call the office or go to the emergency room. Note: [employer] speech recognition lumber stacker operator software was used to create portions of this document. Sound-alike and misspelled words, as well as other lumber stacker operator errors may be contained in the documentation. 10 minutes was spent on this encounter. This included face to face and non face to face care including preparing for the visit, reviewing the history, performing the exam, counseling and providing education to the patient, family, or caregiver, ordering medications/test/ procedures if indicated as documented, communicating with other healthcare providers, documenting information in the medical record, interpreting / sharing this information when indicated as documented, and care coordination.
[2020-09-22 08:09] VITALS: BP 144/83; PULSE 60; RESP 18; TEMP 36.4; BMI 38.0
--- NOTE | 2020-09-22 09:32 | PN.PCM_ITS ---
History of Present Illness Date of Service: 09/22/20 Chief Complaint: Right great toe ulcer History of Wound: This 55-year-old male with multiple comorbidities including diabetes and hypertension presents for chronic recurrent right great toe ulcer. He offloads with his cam walker boot. He denies fever, chill, nausea, vomiting. His redness has resolved and he denies odor or pain. He relates he took for 2 last weeks off of offloading has been walking in his boot even though this was not advised. He relates his wound still drains. Progress of Wound: Improving Objective Data Objective Data Vital Signs: Vital Signs Temp Pulse Resp BP 97.6 F L 60 18 144/83 H 09/22/20 08:09 09/22/20 08:09 09/22/20 08:09 09/22/20 08:09 Weight: 113.398 kg Body Mass Index (BMI) 38.0 Physical Exam Const alert and oriented x3 General Appearance: cooperative HEENT normocephalic Extremity Extremity Narrative: No calf tenderness Diminished pulses Muscle wasting noted decreased loaded first metatarsal phalangeal joint range of motion General Extremity: edema and no tenderness to palpation of joints or extremities; Negative for cyanosis Skin Skin Narrative: no purulence, no streaking, no odor, no infection General Skin Exam: Negative for erythema Neuro Neuro Narrative: lack of normal epicritic sensation via light touch is consistent with neuropathy status Psych cooperative and affect normal Debridement Note Debridement Note Post-Debridement Measurements and Additional Note: Post-Debridement Measurements/Treatment - Nurse 1 - General Ulcer Assessment Start: 08/25/20 09:05 Freq: Status: Active Protocol: ALIYA Activity Type Activity Date Activity User E-Sign Co-Sign Detail Recorded Client Recorded Date Recorded By Document 08/25/20 09:05 ML [id number] 08/25/20 09:13 ML Document 09/01/20 08:21 RB [id number] 09/01/20 08:22 RB Document 09/08/20 08:04 DL [id number] 09/08/20 08:09 DL Document 09/22/20 08:09 DL [id number] 09/22/20 08:13 DL 08/25/20 09/01/20 09/08/20 09:05 08:21 08:04 - Today's Visit Information Type of service Follow-up Visit Follow-up Visit Follow-up Visit (Physician/DRESSAGE JUDGE (Physician/DRESSAGE JUDGE (Physician/DRESSAGE JUDGE ) ) ) Arrival Mode Ambulatory Ambulatory Ambulatory Transfer Assistance None None None Patient Identification Verified (Name & Yes Yes Yes ) Patient Requires Transmission-Based No No No Precautions Safety Precautions NA Finger Stick Blood Sugar(mg/dl) (if didnt check indicated): Blood Sugar Stated by Patient Height and Weight Body Mass Index (BMI) 38.0 38.0 38.0 BMI Classification Obese Obese Obese Vital Signs Temperature (97.8 F-99.1 F) 97.3 F L 97 F L 96.1 F L Temperature Source Temporal Temporal Temporal Pulse Rate (60-100) 60 59 L 58 L Pulse Location Monitor Monitor Monitor Respiratory Rate (12-18) 16 18 18 Respiratory rate source Observation Observation Observation Blood Pressure (90/60-120/80) 177/89 H 149/75 H 153/64 H Blood Pressure Mean (mm Hg) 118 99 93 Source Monitor Monitor Monitor Position Sitting Semi-Fowlers Semi-Fowlers Blood Pressure Location Left Arm Left Arm History Since Last Visit- (Skip if this is Patient's initial visit) Have you changed medications since your No No No last visit? Any new allergies or adverse reactions No No No Had a fall/change in ADL's that may No No No increase risk of falls Signs or symptoms of abuse and/or No No No neglect since last visit Have you been in the hospital since your No No No last visit? Has dressing in place as prescribed Yes Yes Yes Has compression in place as prescribed N/A No No Has offloadiing in place as prescribed N/A Yes Yes Experienced any changes in pain level or No No No management Left Footwear Regular Shoe Right Footwear Regular Shoe Surgical Shoe with pressure relief insole Pain Scale: 0-10 Numeric Is Patient Pain Free? Yes Yes No 09/22/20 08:09 - Today's Visit Information Type of service Follow-up Visit (Physician/DRESSAGE JUDGE ) Arrival Mode Ambulatory Transfer Assistance None Patient Identification Verified (Name & Yes ) Patient Requires Transmission-Based No Precautions Safety Precautions Finger Stick Blood Sugar(mg/dl) (if didnt check indicated): Blood Sugar Stated by Patient Height and Weight Body Mass Index (BMI) 38.0 BMI Classification Obese Vital Signs Temperature (97.8 F-99.1 F) 97.6 F L Temperature Source Temporal Pulse Rate (60-100) 60 Pulse Location Monitor Respiratory Rate (12-18) 18 Respiratory rate source Observation Blood Pressure (90/60-120/80) 144/83 H Blood Pressure Mean (mm Hg) 103 Source Monitor Position Blood Pressure Location History Since Last Visit- (Skip if this is Patient's initial visit) Have you changed medications since your No last visit? Any new allergies or adverse reactions No Had a fall/change in ADL's that may No increase risk of falls Signs or symptoms of abuse and/or No neglect since last visit Have you been in the hospital since your No last visit? Has dressing in place as prescribed Yes Has compression in place as prescribed N/A Has offloadiing in place as prescribed No Experienced any changes in pain level or No management Left Footwear Right Footwear Pain Scale: 0-10 Numeric Is Patient Pain Free? Yes WC - Nurse 1 - General Ulcer Measurement Start: 08/25/20 09:05 Freq: Status: Active Protocol: Activity Type Activity Date Activity User E-Sign Co-Sign Detail Recorded Client Recorded Date Recorded By Document 08/25/20 09:05 ML [id number] 08/25/20 09:13 ML Document 09/01/20 08:21 RB [id number] 09/01/20 08:22 RB Document 09/08/20 08:04 DL [id number] 09/08/20 08:09 DL Document 09/22/20 08:09 DL [id number] 09/22/20 08:13 DL 08/25/20 09/01/20 09/08/20 09:05 08:21 08:04 Wound Center Nurse 1 #2- R HALLUX PLANTAR -Combined with other wound No No -Current Size (cm) - Length 2 0.5 0.6 -Current Size (cm) - Width 0.8 0.6 0.4 -Current Size (cm) - Depth 0.3 0.1 0.2 -Total Square Cm 1.6 0.30 0.24 -Photo Taken No -Tunneling No No -Undermining/Tunneling No No -Circular Undermining No No -Exudate Amt Medium Small Small -Exudate Type Serosanguineous Serosanguineous Serosanguineous -Wound Margin Distinct, Thickened Thickened Outline Attached -Granulation Amt Medium (34-66%) Medium (34-66%) Medium (34-66%) -Granulation Quality Pale [place] -Slough/Fibrin Yes Yes Yes -Necrosis Amt Medium (34-66%) Small (1-33%) Small (1-33%) -Necrotic Tissue Type Adherent Slough Adherent Slough Adherent Slough -Structure Exposed N/A N/A -Texture (Lisa-wound Skin Appearance) No Abnormality Callus Callus -Moisture (Lisa-wound Skin Appearance) No Abnormality Assessed Assessed -Color (Lisa-wound Skin Appearance) No Abnormality Assessed Assessed -Temperature (Lisa-wound Skin No Abnormality No Abnormality No Abnormality Appearance) (Pt Warm) (Pt Warm) (Pt Warm) -Tenderness on Palpation (Lisa-wound No No No Skin Appearance) -Ulcer Cleansing Rinsed/ Wound Cleanser Rinsed/ Irrigated with Irrigated with Saline Saline -Foul Odor after Cleansing No No No -Anesthetic Used 4% Lidocaine 4% Lidocaine 5% Lidocaine Solution Solution Gel 09/22/20 08:09 Wound Center Nurse 1 #2- R HALLUX PLANTAR -Combined with other wound -Current Size (cm) - Length 0.6 -Current Size (cm) - Width 0.3 -Current Size (cm) - Depth 0.2 -Total Square Cm 0.18 -Photo Taken No -Tunneling -Undermining/Tunneling -Circular Undermining -Exudate Amt Small -Exudate Type Serosanguineous -Wound Margin Distinct, Outline Attached -Granulation Amt Small (1-33%) -Granulation Quality Red -Slough/Fibrin -Necrosis Amt Small (1-33%) -Necrotic Tissue Type Adherent Slough -Structure Exposed N/A -Texture (Lisa-wound Skin Appearance) Callus -Moisture (Lisa-wound Skin Appearance) Dry/Scaly -Color (Lisa-wound Skin Appearance) No Abnormality -Temperature (Lisa-wound Skin No Abnormality Appearance) (Pt Warm) -Tenderness on Palpation (Lisa-wound No Skin Appearance) -Ulcer Cleansing Wound Cleanser -Foul Odor after Cleansing No -Anesthetic Used 4% Lidocaine Solution WC - Nurse 2 - General Ulcer CM Notes Start: 08/25/20 09:05 Freq: Status: Active Protocol: Activity Type Activity Date Activity User E-Sign Co-Sign Detail Recorded Client Recorded Date Recorded By Document 08/25/20 09:20 GEOVANI [id number] 08/25/20 09:22 JF Document 09/01/20 08:26 GEOVANI [id number] 09/01/20 08:28 JF Document 09/08/20 09:21 PL Laptop 09/08/20 09:24 PL Document 09/22/20 08:22 [id number] 09/22/20 08:25 08/25/20 09/01/20 09/08/20 09:20 08:26 09:21 Wound Center Nurse 2 #2- R HALLUX PLANTAR -Time 09:20 08:26 08:22 -Correct Patient Yes Yes Yes -Correct Side, Site, Position Yes Yes Yes -Correct Procedure Yes Yes Yes -Procedure Performed Yes Yes Yes -Type of Procedure Debridement Debridement Debridement -Clinical Debridement Subcutaneous Subcutaneous Subcutaneous -Tissue Removed Subcutaneous Subcutaneous Epidermis, Subcutaneous -Post Debridement (cm) - Length 0.8 1 0.6 -Post Debridement (cm) - Width 0.9 6 0.4 -Post Debridement (cm) - Depth 0.1 0.2 0.2 -Total Square (Post) (cm) 0.72 6 0.24 -Area of Debridement (cm) - Length 0.8 1 0.6 -Area of Debridement (cm) - Width 0.9 6 0.4 -Total Square (Area) (cm) 0.72 6 0.24 -Tunneling No No No -Undermining/Tunneling No No No -Circular Undermining No No No -Wound/Ulcer Outcome Not Healed Not Healed Not Healed -Ulcer Cleansing Rinsed/ Rinsed/ Rinsed/ Irrigated with Irrigated with Irrigated with Saline Saline Saline -Foul Odor after Cleansing No No No -Bioengineered Tissue No No No -Bleeding Controlled with Pressure Pressure Pressure -Offloading No Yes -Type of Offloading Camwalker -Treatment Response Procedure Procedure Procedure Tolerated Well Tolerated Well Tolerated Well -Debridement - Subq, 1st 20sq cm Yes Yes Yes Pain Scale: 0-10 Numeric Is Patient Pain Free? Yes Yes Yes 09/22/20 08:22 Wound Center Nurse 2 #2- R HALLUX PLANTAR -Time 08:22 -Correct Patient Yes -Correct Side, Site, Position Yes -Correct Procedure Yes -Procedure Performed Yes -Type of Procedure Debridement -Clinical Debridement Subcutaneous -Tissue Removed Subcutaneous -Post Debridement (cm) - Length 0.8 -Post Debridement (cm) - Width 0.4 -Post Debridement (cm) - Depth 0.2 -Total Square (Post) (cm) 0.32 -Area of Debridement (cm) - Length 0.8 -Area of Debridement (cm) - Width 0.4 -Total Square (Area) (cm) 0.32 -Tunneling No -Undermining/Tunneling No -Circular Undermining No -Wound/Ulcer Outcome Not Healed -Ulcer Cleansing Rinsed/ Irrigated with Saline -Foul Odor after Cleansing No -Bioengineered Tissue No -Bleeding Controlled with Pressure -Offloading Yes -Type of Offloading Camwalker -Treatment Response Procedure Tolerated Well -Debridement - Subq, 1st 20sq cm Yes Pain Scale: 0-10 Numeric Is Patient Pain Free? Yes - Nurse 3 - General Ulcer D/C NN Start: 08/25/20 09:05 Freq: Status: Active Protocol: Activity Type Activity Date Activity User E-Sign Co-Sign Detail Recorded Client Recorded Date Recorded By Document 08/25/20 09:32 RB [id number] 08/25/20 09:33 RB Document 09/01/20 08:37 DL [id number] 09/01/20 08:38 DL Document 09/22/20 08:39 RB [id number] 09/22/20 08:40 RB 08/25/20 09/01/20 09/22/20 09:32 08:37 08:39 Wound Care Nurse 3 #2- R HALLUX PLANTAR -Ulcer Cleansing Rinsed/ Rinsed/ Rinsed/ Irrigated with Irrigated with Irrigated with Saline Saline Saline -Negative Pressure Wound Therapy Discontinue -Primary Dressing Applied Aquacel AG 4x4 C Hydrogel ($) Aquacel AG 2x2 -Primary Dressing Covered/Secured with Dry Gauze, Dry Gauze, Dry Gauze Secured with Secured with Tape Tape -Aquacel AG 4x4 1 -Aquacel AG 2x2 1 Treatment Response Procedure Procedure Procedure Tolerated Well Tolerated Well Tolerated Well Pain Scale: 0-10 Numeric Is Patient Pain Free? Yes Yes WC - Visit Discharge Discharge Condition Stable Stable Stable Ambulatory Status Ambulatory Ambulatory Ambulatory Transportation Private Auto Private Auto Private Auto Medication Reconcilliation completed & No No provided to patient/care provider Clinical Summary of Care Provided Yes Yes Wound debrided: plantar hallux right Wound Grade/Stage: 1 Type of Debridement: Excisional debridement Anesthesia Used: 4% Lidocaine Solution Depth: in the subcutaneous layer Percentage of wound debrided: 100 Instrument Used: #15 blade Tissue Removed: fibrous, devitalized subcutaneous, biofilm, slough Severity: Fat Layer Exposed Amount of bleeding with debridement: Mild Bleeding Controlled with: Pressure Patient tolerated procedure: Patient tolerated procedure well Assessment/Plan Assessment/Plan (1) Cellulitis of right lower limb: CODE(S): L03.115 - Cellulitis of right lower limb (2) Chronic ulcer of right foot with fat layer exposed: CODE(S): L97.512 - Non-pressure chronic ulcer of other part of right foot with fat layer exposed (3) Type 2 diabetes mellitus with diabetic polyneuropathy: CODE(S): E11.42 - Type 2 diabetes mellitus with diabetic polyneuropathy (4) Hallux limitus of right foot: CODE(S): M20.5X1 - Other deformities of toe(s) (acquired), right foot PLAN: I reviewed and discussed his case today. Debridement was performed today as noted in the clinical panel to all of the ulcer sites. The following work up and care recommendations were made: Dressing: Aquacel Ag Wash: Antibacterial soap and water Offload: To resume CAM Walker use with Plastizote offloading pocket. He has this at home. Compliance was discussed and is necessary for treatment success on a consistent basis and not just the weekend. It is noted he did not offload for 2 weeks and his ulcer is not improving. Healing expectations are very low if he is not participating this part of his treatment plan. Vascular: I recommend updating noninvasive vascular studies including segmental pressures thigh and leg, HERI, and systolic toe pressures. Non invasive arterial study was completed on 09/01/20 with normal waveforms and ABIs. No gross abnormalities noted. Results were discussed. Edema: To elevate limbs at rest. Venous Doppler with reflux completed on 09/01/20 without venous insufficiency noted. Infection: He has apparent cellulitis and a prescription for for Keflex was sent to [facility]. He is advised on safe and proper use. Cultures were reviewed with Staphylococcus pseudointermediu, Staphylococcus epidermidis and Streptococcus group C. A prescription for doxycycline was sent to his choice. He was advised on safe and proper use. To avoid sun exposure. Local signs of infection have resolved and additional antibiotics and I recommend at this time. Pain: Not present due to neuropathy Host factors: He is diabetic and this may contribute to delays in healing. To continue to work with his primary care physician on diet, activity, and medication management. Imaging: His foot x-ray (3 views) were also reviewed without osseous destruction adjacent to the ulcer site. There is no foreign body or soft tissue emphysema. Labs: white blood cell count 6.4, ESR 25, C-reactive protein less than 2.9, albumin 3.8. His last A1c at [facility] was over 10. Updated A1c from Dr. Lubin's office was 7.3% on 02-12-2021. I answered all the patient's questions. To return to the wound healing center in 2 weeks or call sooner if the patient has any questions or concerns. If he has any progression of his cellulitis area or systemic illness development he wa s advised to call the office or go to the emergency room. Note: [employer] speech recognition collection specialist software was used to create portions of this document. Sound-alike and misspelled words, as well as other collection specialist errors may be contained in the documentation.
== END 2020-09-22 23:59 ==
LOC: WC 08:00
PROVIDERS: PCP Family Medicine; Referring Provider Podiatrist; Visit Provider Podiatrist
DX: E11.621 Type 2 diabetes mellitus with foot ulcer (principal); I10 Essential (primary) hypertension; L97.512 Non-pressure chronic ulcer of other part of right foot with fat layer exposed; L03.115 Cellulitis of right lower limb; M20.5X1 Other deformities of toe(s) (acquired), right foot; E11.42 Type 2 diabetes mellitus with diabetic polyneuropathy
CPT/HCPCS: 11042; 93923; 93970

== ENCOUNTER 2020-10-13 08:30 | Outpatient (RCR) | payer OTHER, SELFPAY ==
[2020-09-23 00:30] VITALS: BP 144/83; PULSE 60; RESP 18; TEMP 36.4
[2020-09-29 08:04] VITALS: BP 175/84; PULSE 61; RESP 18; TEMP 37.1; BMI 38.0
--- NOTE | 2020-09-29 08:27 | PCM.WC.PN ---
History of Present Illness Date of Service: 09/29/20 Chief Complaint: Right great toe ulcer History of Wound: This 55-year-old male with multiple comorbidities including diabetes and hypertension presents for chronic recurrent right great toe ulcer. He offloads with his cam walker boot. He denies fever, chill, nausea, vomiting. His redness has resolved and he denies odor or pain. He wore his cam walker more this past week. He relates his A1C is now decreased to 6%. Progress of Wound: improving Objective Data Objective Data Vital Signs: Vital Signs Temp Pulse Resp BP 98.7 F 61 18 175/84 H 09/29/20 08:04 09/29/20 08:04 09/29/20 08:04 09/29/20 08:04 Weight: 113.398 kg Body Mass Index (BMI) 38.0 Physical Exam Const alert and oriented x3 General Appearance: cooperative HEENT normocephalic Extremity Extremity Narrative: No calf tenderness Diminished pulses Muscle wasting noted reduced first metatarsal phalangeal joint range of motion General Extremity: edema and no tenderness to palpation of joints or extremities; Negative for cyanosis Skin Skin Narrative: no purulence, no streaking, no odor, no infection. granular base and peripheral epithelialization. no deep probing General Skin Exam: Negative for erythema Neuro Neuro Narrative: lack of normal epicritic sensation via light touch is consistent with neuropathy status Psych cooperative and affect normal Debridement Note Debridement Note Post-Debridement Measurements and Additional Note: Post-Debridement Measurements/Treatment - Nurse 1 - General Ulcer Assessment Start: 09/29/20 08:04 Freq: Status: Active Protocol: ALIYA Activity Type Activity Date Activity User E-Sign Co-Sign Detail Recorded Client Recorded Date Recorded By Document 09/29/20 08:04 RB [id number] 09/29/20 08:06 RB Edit Result 09/29/20 08:04 RB (1) [id number] 09/29/20 08:07 RB (1) Pulse Rate (60-100) => 61 Blood Pressure (90/60-120/80) => 175/84 H Blood Pressure Mean (mm Hg) => 114 Source => Monitor Position => Semi-Fowlers Blood Pressure Location => Left Arm 09/29/20 08:04 - Today's Visit Information Type of service Follow-up Visit (Physician/STITCHING MACHINE OPERATOR ) Arrival Mode Ambulatory Transfer Assistance None Patient Identification Verified (Name & Yes ) Patient Requires Transmission-Based No Precautions Height and Weight Body Mass Index (BMI) 38.0 BMI Classification Obese Vital Signs Temperature (97.8 F-99.1 F) 98.7 F Temperature Source Temporal Pulse Rate (60-100) 61 Pulse Location Monitor Respiratory Rate (12-18) 18 Respiratory rate source Observation Blood Pressure (90/60-120/80) 175/84 H Blood Pressure Mean (mm Hg) 114 Source Monitor Position Semi-Fowlers Blood Pressure Location Left Arm History Since Last Visit- (Skip if this is Patient's initial visit) Have you changed medications since your No last visit? Any new allergies or adverse reactions No Had a fall/change in ADL's that may No increase risk of falls Signs or symptoms of abuse and/or No neglect since last visit Have you been in the hospital since your No last visit? Has dressing in place as prescribed Yes Has compression in place as prescribed No Has offloadiing in place as prescribed No Experienced any changes in pain level or No management Left Footwear Regular Shoe Right Footwear Regular Shoe Pain Scale: 0-10 Numeric Is Patient Pain Free? Yes WC - Nurse 1 - General Ulcer Measurement Start: 09/29/20 08:04 Freq: Status: Active Protocol: Activity Type Activity Date Activity User E-Sign Co-Sign Detail Recorded Client Recorded Date Recorded By Document 09/29/20 08:04 LAURA [id number] 09/29/20 08:06 LAURA 09/29/20 08:04 Wound Center Nurse 1 #2- R HALLUX PLANTAR -Combined with other wound No -Current Size (cm) - Length 0.4 -Current Size (cm) - Width 0.2 -Current Size (cm) - Depth 0.1 -Total Square Cm 0.08 -Tunneling No -Undermining/Tunneling No -Circular Undermining No -Granulation Amt Medium (34-66%) -Granulation Quality Riva -Slough/Fibrin Yes -Necrosis Amt Small (1-33%) -Structure Exposed N/A -Texture (Lisa-wound Skin Appearance) Assessed,Callus -Moisture (Lisa-wound Skin Appearance) Assessed -Temperature (Lisa-wound Skin No Abnormality Appearance) (Pt Warm) -Tenderness on Palpation (Lisa-wound No Skin Appearance) -Ulcer Cleansing Wound Cleanser -Foul Odor after Cleansing No -Anesthetic Used 4% Lidocaine Solution - Nurse 2 - General Ulcer CM Notes Start: 09/29/20 08:04 Freq: Status: Active Protocol: Activity Type Activity Date Activity User E-Sign Co-Sign Detail Recorded Client Recorded Date Recorded By Document 09/29/20 08:13 GEOVANI [id number] 09/29/20 08:16 09/29/20 08:13 Wound Center Nurse 2 -Time 08:14 -Correct Patient Yes -Correct Side, Site, Position Yes -Correct Procedure Yes -Procedure Performed Yes -Type of Procedure Debridement -Clinical Debridement Subcutaneous -Tissue Removed Subcutaneous -Post Debridement (cm) - Length 0.6 -Post Debridement (cm) - Width 0.6 -Post Debridement (cm) - Depth 0.2 -Total Square (Post) (cm) 0.36 -Area of Debridement (cm) - Length 0.6 -Area of Debridement (cm) - Width 0.6 -Total Square (Area) (cm) 0.36 -Tunneling No -Undermining/Tunneling No -Circular Undermining No -Wound/Ulcer Outcome Not Healed -Ulcer Cleansing Rinsed/ Irrigated with Saline -Foul Odor after Cleansing No -Bioengineered Tissue No -Bleeding Controlled with Pressure -Offloading Yes -Type of Offloading Camwalker -Treatment Response Procedure Tolerated Well -Debridement - Subq, 1st 20sq cm Yes Pain Scale: 0-10 Numeric Is Patient Pain Free? Yes - Nurse 3 - General Ulcer D/C NN Start: 09/29/20 08:04 Freq: Status: Active Protocol: Activity Type Activity Date Activity User E-Sign Co-Sign Detail Recorded Client Recorded Date Recorded By Document 09/29/20 08:16 GEOVANI [id number] 09/29/20 08:16 09/29/20 08:16 Wound Care Nurse 3 #2- R HALLUX PLANTAR -Ulcer Cleansing Rinsed/ Irrigated with Saline -Foul Odor after Cleansing No -Primary Dressing Applied Aquacel AG 2x2 -Primary Dressing Covered/Secured with Dry Gauze, Secured with Tape -Aquacel AG 2x2 1 Pain Scale: 0-10 Numeric Is Patient Pain Free? Yes WC - Visit Discharge Discharge Condition Stable Ambulatory Status Ambulatory Transportation Private Auto Medication Reconcilliation completed & Yes provided to patient/care provider Clinical Summary of Care Provided Yes Wound debrided: right hallux Wound Grade/Stage: 1 Type of Debridement: Excisional debridement Anesthesia Used: 4% Lidocaine Solution Depth: in the subcutaneous layer Percentage of wound debrided: 100 Instrument Used: #15 blade Tissue Removed: fibrous, devitalized subcutaneous, biofilm, slough Severity: Fat Layer Exposed Amount of bleeding with debridement: Mild Bleeding Controlled with: Pressure Patient tolerated procedure: Patient tolerated procedure well Assessment/Plan Assessment/Plan (1) Chronic ulcer of right foot with fat layer exposed: CODE(S): L97.512 - Non-pressure chronic ulcer of other part of right foot with fat layer exposed (2) Type 2 diabetes mellitus with diabetic polyneuropathy: CODE(S): E11.42 - Type 2 diabetes mellitus with diabetic polyneuropathy (3) Hallux limitus of right foot: CODE(S): M20.5X1 - Other deformities of toe(s) (acquired), right foot (4) Chronic malnutrition: CODE(S): E46 - Unspecified protein-calorie malnutrition PLAN: The following work up and care recommendations were made: Dressing: Aquacel Ag daily Wash: Antibacterial soap and water Offload: To resume CAM Walker use with Plastizote offloading pocket. He has this at home. Compliance was discussed and is necessary for treatment success on a consistent basis and not just the weekend. Healing expectations are very low if he is not participating this part of his treatment plan. Vascular: I recommend updating noninvasive vascular studies including segmental pressures thigh and leg, HERI, and systolic toe pressures. Non invasive arterial study was completed on 09/01/20 with normal waveforms and ABIs. No gross abnormalities noted. Results were discussed. Edema: To elevate limbs at rest. Venous Doppler with reflux completed on 09/01/20 without venous insufficiency noted. Infection: He has apparent cellulitis and a prescription for for Keflex was sent to [facility]. He is advised on safe and proper use. Cultures were reviewed with Staphylococcus pseudointermediu, Staphylococcus epidermidis and Streptococcus group C. A prescription for doxycycline was sent to his choice. He was advised on safe and proper use. To avoid sun exposure. Local signs of infection have resolved and additional antibiotics and I recommend at this time. Pain: Not present due to neuropathy Host factors: He is diabetic and this may contribute to delays in healing. To continue to work with his primary care physician on diet, activity, and medication management. Imaging: His foot x-ray (3 views) were also reviewed without osseous destruction adjacent to the ulcer site. There is no foreign body or soft tissue emphysema. Labs: white blood cell count 6.4, ESR 25, C-reactive protein less than 2.9, albumin 3.8. His last A1c at [facility] was over 10. Updated A1c from Dr. Lubin's office was 7.3% on 02-12-2021 and now self reported at 6%. I answered all the patient's questions. To return to the wound healing center in 1 weeks or call sooner if the patient has any questions or concerns. If he has any progression of his cellulitis area or systemic illness development he was advised to call the office or go to the emergency room. Note: [employer] speech recognition roofer vinyl coating software was used to create portions of this document. Sound-alike and misspelled words, as well as other roofer vinyl coating errors may be contained in the documentation.
[2020-10-06 08:01] VITALS: BP 122/77; PULSE 61; RESP 18; TEMP 36.4; BMI 38.0
--- NOTE | 2020-10-06 11:17 | PN.PCM_ITS ---
History of Present Illness Date of Service: 10/06/20 Chief Complaint: Right great toe ulcer History of Wound: This 55-year-old male with multiple comorbidities including diabetes and hypertension presents for chronic recurrent right great toe ulcer. He offloads with his cam walker boot. He denies fever, chill, nausea, vomiting. His redness has resolved and he denies odor or pain. He relates he did not wear his cam walker and often walks around in his regular shoe on his ulcer. He is now amendable to consider taking some PTO time. Progress of Wound: Stable with ongoing delays in healing Objective Data Objective Data Vital Signs: Vital Signs Temp Pulse Resp BP 97.5 F L 61 18 122/77 H 10/06/20 08:01 10/06/20 08:01 10/06/20 08:01 10/06/20 08:01 Weight: 113.398 kg Body Mass Index (BMI) 38.0 Physical Exam Const alert and oriented x3 General Appearance: cooperative HEENT normocephalic Extremity Extremity Narrative: No calf tenderness Diminished pulses Muscle wasting noted reduced first metatarsal phalangeal joint range of motion loaded and unloaded General Extremity: edema and no tenderness to palpation of joints or extremities; Negative for cyanosis Skin Skin Narrative: no purulence, no streaking, no odor, no infection. granular base and peripheral epithelialization. no deep probing General Skin Exam: Negative for erythema Neuro Neuro Narrative: lack of normal epicritic sensation via light touch is consisten t with neuropathy status Psych cooperative and affect normal Debridement Note Debridement Note Post-Debridement Measurements and Additional Note: Post-Debridement Measurements/Treatment WC - Nurse 1 - General Ulcer Assessment Start: 09/29/20 08:04 Freq: Status: Active Protocol: FIDEL.TERESA Activity Type Activity Date Activity User E-Sign Co-Sign Detail Recorded Client Recorded Date Recorded By Document 09/29/20 08:04 RB [id number] 09/29/20 08:06 RB Edit Result 09/29/20 08:04 RB (1) [id number] 09/29/20 08:07 RB Document 10/06/20 08:01 DL [id number] 10/06/20 08:06 DL (1) Pulse Rate (60-100) => 61 Blood Pressure (90/60-120/80) => 175/84 H Blood Pressure Mean (mm Hg) => 114 Source => Monitor Position => Semi-Fowlers Blood Pressure Location => Left Arm 09/29/20 10/06/20 08:04 08:01 - Today's Visit Information Type of service Follow-up Visit Follow-up Visit (Physician/MEDICATION RECONCILIATION TECHNICIAN (Physician/MEDICATION RECONCILIATION TECHNICIAN ) ) Arrival Mode Ambulatory Ambulatory Transfer Assistance None None Patient Identification Verified (Name & Yes ) Patient Requires Transmission-Based No No Precautions Height and Weight Body Mass Index (BMI) 38.0 38.0 BMI Classification Obese Obese Vital Signs Temperature (97.8 F-99.1 F) 98.7 F 97.5 F L Temperature Source Temporal Temporal Pulse Rate (60-100) 61 61 Pulse Location Monitor Monitor Respiratory Rate (12-18) 18 18 Respiratory rate source Observation Observation Blood Pressure (90/60-120/80) 175/84 H 122/77 H Blood Pressure Mean (mm Hg) 114 92 Source Monitor Monitor Position Semi-Fowlers Blood Pressure Location Left Arm History Since Last Visit- (Skip if this is Patient's initial visit) Have you changed medications since your No last visit? Any new allergies or adverse reactions No Had a fall/change in ADL's that may No increase risk of falls Signs or symptoms of abuse and/or No neglect since last visit Have you been in the hospital since your No last visit? Has dressing in place as prescribed Yes Has compression in place as prescribed No Has offloadiing in place as prescribed No Experienced any changes in pain level or No management Left Footwear Regular Shoe Right Footwear Regular Shoe Removable Cast Walker/Walking Boot Pain Scale: 0-10 Numeric Is Patient Pain Free? Yes Yes - Nurse 1 - General Ulcer Measurement Start: 09/29/20 08:04 Freq: Status: Active Protocol: Activity Type Activity Date Activity User E-Sign Co-Sign Detail Recorded Client Recorded Date Recorded By Document 09/29/20 08:04 RB [id number] 09/29/20 08:06 RB Document 10/06/20 08:01 DL [id number] 10/06/20 08:06 DL 09/29/20 10/06/20 08:04 08:01 Wound Center Nurse 1 #2- R HALLUX PLANTAR -Combined with other wound No -Current Size (cm) - Length 0.4 0.3 -Current Size (cm) - Width 0.2 0.2 -Current Size (cm) - Depth 0.1 0.2 -Total Square Cm 0.08 0.06 -Photo Taken No -Tunneling No -Undermining/Tunneling No -Maximum Distance #2 (cm) 0.2 -Circular Undermining No Yes -Exudate Amt Small -Wound Margin Thickened -Granulation Amt Medium (34-66%) Small (1-33%) -Granulation Quality Bessie Bessie -Slough/Fibrin Yes -Necrosis Amt Small (1-33%) Small (1-33%) -Necrotic Tissue Type Adherent Slough -Structure Exposed N/A N/A -Texture (Lisa-wound Skin Appearance) Assessed,Callus Callus,Scarring -Moisture (Lisa-wound Skin Appearance) Assessed No Abnormality -Color (Lisa-wound Skin Appearance) No Abnormality -Temperature (Lisa-wound Skin No Abnormality No Abnormality Appearance) (Pt Warm) (Pt Warm) -Tenderness on Palpation (Lisa-wound No No Skin Appearance) -Ulcer Cleansing Wound Cleanser Rinsed/ Irrigated with Saline -Foul Odor after Cleansing No No -Anesthetic Used 4% Lidocaine 5% Lidocaine Solution Gel WC - Nurse 2 - General Ulcer CM Notes Start: 09/29/20 08:04 Freq: Status: Active Protocol: Activity Type Activity Date Activity User E-Sign Co-Sign Detail Recorded Client Recorded Date Recorded By Document 09/29/20 08:13 [id number] 09/29/20 08:16 Document 10/06/20 09:21 PL Laptop 10/06/20 09:22 PL 09/29/20 10/06/20 08:13 09:21 Wound Center Nurse 2 #2- R HALLUX PLANTAR -Time 08:14 08:40 -Correct Patient Yes Yes -Correct Side, Site, Position Yes Yes -Correct Procedure Yes Yes -Procedure Performed Yes Yes -Type of Procedure Debridement Debridement -Clinical Debridement Subcutaneous Subcutaneous -Tissue Removed Subcutaneous Subcutaneous -Post Debridement (cm) - Length 0.6 0.3 -Post Debridement (cm) - Width 0.6 0.2 -Post Debridement (cm) - Depth 0.2 0.2 -Total Square (Post) (cm) 0.36 0.06 -Area of Debridement (cm) - Length 0.6 0.3 -Area of Debridement (cm) - Width 0.6 0.2 -Total Square (Area) (cm) 0.36 0.06 -Tunneling No No -Undermining/Tunneling No No -Circular Undermining No No -Wound/Ulcer Outcome Not Healed Not Healed -Ulcer Cleansing Rinsed/ Rinsed/ Irrigated with Irrigated with Saline Saline -Foul Odor after Cleansing No No -Bioengineered Tissue No No -Bleeding Controlled with Pressure Pressure -Offloading Yes -Type of Offloading Camwalker -Treatment Response Procedure Procedure Tolerated Well Tolerated Well -Debridement - Subq, 1st 20sq cm Yes Yes Pain Scale: 0-10 Numeric Is Patient Pain Free? Yes Yes - Nurse 3 - General Ulcer D/C NN Start: 09/29/20 08:04 Freq: Status: Active Protocol: Activity Type Activity Date Activity User E-Sign Co-Sign Detail Recorded Client Recorded Date Recorded By Document 09/29/20 08:16 [id number] 09/29/20 08:16 Document 10/06/20 08:52 DL [id number] 10/06/20 08:54 DL 09/29/20 10/06/20 08:16 08:52 Wound Care Nurse 3 #2- R HALLUX PLANTAR -Ulcer Cleansing Rinsed/ Wound Cleanser Irrigated with Saline -Foul Odor after Cleansing No No -Primary Dressing Applied Aquacel AG 2x2 Aquacel AG 4x4 -Primary Dressing Covered/Secured with Dry Gauze, Dry Gauze, Secured with Secured with Tape Tape -Aquacel AG 4x4 1 -Aquacel AG 2x2 1 Treatment Response Procedure Tolerated Well Pain Scale: 0-10 Numeric Is Patient Pain Free? Yes Yes - Visit Discharge Discharge Condition Stable Stable Ambulatory Status Ambulatory Ambulatory Transportation Private Auto Private Auto Medication Reconcilliation completed & Yes provided to patient/care provider Clinical Summary of Care Provided Yes Wound debrided: plantar right hallux Wound Grade/Stage: 1 Type of Debridement: Excisional debridement Anesthesia Used: 4% Lidocaine Solution Depth: in the subcutaneous layer Percentage of wound debrided: 100 Instrument Used: #15 blade Tissue Removed: fibrous, devitalized subcutaneous, biofilm, slough Severity: Fat Layer Exposed Amount of bleeding with debridement: Mild Bleeding Controlled with: Pressure Patient tolerated procedure: Patient tolerated procedure well Assessment/Plan Assessment/Plan (1) Chronic ulcer of right foot with fat layer exposed: CODE(S): L97.512 - Non-pressure chronic ulcer of other part of right foot with fat layer exposed (2) Type 2 diabetes mellitus with diabetic polyneuropathy: CODE(S): E11.42 - Type 2 diabetes mellitus with diabetic polyneuropathy (3) Hallux limitus of right foot: CODE(S): M20.5X1 - Other deformities of toe(s) (acquired), right foot (4) Chronic malnutrition: CODE(S): E46 - Unspecified protein-calorie malnutrition PLAN: The following work up and care recommendations were made: Dressing: Aquacel Ag daily Wash: Antibacterial soap and water Offload: To resume CAM Walker use with Plastizote offloading pocket. He is not able to do this. Compliance was discussed and is necessary for treatment success on a consistent basis. Healing expectations are very low if he is not participating this part of his treatment plan. I offered him a total contact cast and he defers. I recommended the use of a knee roller crutches or walker to help keep pressure off of the site. We discussed taking some personal time off to allow appropriate offloading. He will consider this. We also discussed internal surgical offloading by performing a Husain arthroplasty. He does not want to undergo surgery at this time and he also understands offloading and significant activity modification will be needed if surgery was pursued. We did also discuss palliative care due to noncompliance with offloading options in which wound healing is not expected however I do not recommend this. Vascular: I recommend updating noninvasive vascular studies including segmental pressures thigh and leg, HERI, and systolic toe pressures. Non invasive arterial study was completed on 09/01/20 with normal waveforms and ABIs. No gross abnormalities noted. Results were discussed. Edema: To elevate limbs at rest. Venous Doppler with reflux completed on 09/01/20 without venous insufficiency noted. Infection: He has apparent cellulitis and a prescription for for Keflex was sent to [facility]. He is advised on safe and proper use. Cultures were reviewed with Staphylococcus pseudointermediu, Staphylococcus epidermidis and Streptococcus group C. A prescription for doxycycline was sent to his choice. He was advised on safe and proper use. To avoid sun exposure. Local signs of infection have resolved and additional antibiotics and I recommend at this time. Pain: Not present due to neuropathy Host factors: He is diabetic and this may contribute to delays in healing. To continue to work with his primary care physician on diet, activity, and medication management. Imaging: His foot x-ray (3 views) were also reviewed without osseous destruction adjacent to the ulcer site. There is no foreign body or soft tissue emphysema. Labs: white blood cell count 6.4, ESR 25, C-reactive protein less than 2.9, albumin 3.8. His last A1c at [facility] was over 10. Updated A1c from Dr. Lubin's office was 7.3% on 02-12-2021 and now self reported at 6%. I answered all the patient's questions. To return to the wound healing center in 1 weeks or call sooner if the patient has any questions or concerns. If he has any progression of his cellulitis area or systemic illness development he was advised to call the office or go to the emergency room. Note: [email or web address] speech recognition under ground miner software was used to create portions of this document. Sound-alike and misspelled words, as well as other under ground miner errors may be contained in the documentation. 12 minutes was spent on this encounter. This included face to face and non face to face care including preparing for the visit, reviewing the history, performing the exam, counseling and providing education to the patient, family, or caregiver, ordering medications/test/ procedures if indicated as documented, communicating with other healthcare providers, documenting information in the medical record, interpreting / sharing this information when indicated as documented, and care coordination.
--- NOTE | 2020-10-13 09:26 | PCM.WC.PN ---
History of Present Illness Date of Service: 10/13/20 Chief Complaint: Right great toe ulcer History of Wound: This 55-year-old male with multiple comorbidities including diabetes and hypertension presents for chronic recurrent right great toe ulcer. He offloads with his cam walker boot. He denies fever, chill, nausea, vomiting. His redness has resolved and he denies odor or pain. He is now amendable to consider taking some PTO time however did not initiate this process with his employer this past week because it was very busy. He relates he did a better job this past week with offloading while not at work. Progress of Wound: Stable with ongoing delays in healing Objective Data Objective Data Vital Signs: Vital Signs Temp Pulse Resp BP 97.5 F L 61 18 122/77 H 10/06/20 08:01 10/06/20 08:01 10/06/20 08:01 10/06/20 08:01 Weight: 113.398 kg Body Mass Index (BMI) 38.0 Physical Exam Const alert and oriented x3 General Appearance: cooperative HEENT normocephalic Extremity Extremity Narrative: No calf tenderness Diminished pulses Muscle wasting noted reduced first metatarsal phalangeal joint range of motion loaded and unloaded General Extremity: edema and no tenderness to palpation of joints or extremities; Negative for cyanosis Skin Skin Narrative: no purulence, no streaking, no odor, no infection. granular base and peripheral epithelialization. no deep probing. Reduced ulcer size noted General Skin Exam: Negative for erythema Neuro Neuro Narrative: lack of normal epicritic sensation via light touch is consistent with neuropathy status Psych cooperative and affect normal Debridement Note Debridement Note Post-Debridement Measurements and Additional Note: Post-Debridement Measurements/Treatment - Nurse 1 - General Ulcer Assessment Start: 09/29/20 08:04 Freq: Status: Active Protocol: FIDEL.LOWLAMONTT Activity Type Activity Date Activity User E-Sign Co-Sign Detail Recorded Client Recorded Date Recorded By Document 09/29/20 08:04 RB [id number] 09/29/20 08:06 RB Edit Result 09/29/20 08:04 RB (1) [id number] 09/29/20 08:07 RB Document 10/06/20 08:01 DL [id number] 10/06/20 08:06 DL (1) Pulse Rate (60-100) => 61 Blood Pressure (90/60-120/80) => 175/84 H Blood Pressure Mean (mm Hg) => 114 Source => Monitor Position => Semi-Fowlers Blood Pressure Location => Left Arm 09/29/20 10/06/20 08:04 08:01 - Today's Visit Information Type of service Follow-up Visit Follow-up Visit (Physician/CASH APPLICATIONS CLERK (Physician/CASH APPLICATIONS CLERK ) ) Arrival Mode Ambulatory Ambulatory Transfer Assistance None None Patient Identification Verified (Name & Yes ) Patient Requires Transmission-Based No No Precautions Height and Weight Body Mass Index (BMI) 38.0 38.0 BMI Classification Obese Obese Vital Signs Temperature (97.8 F-99.1 F) 98.7 F 97.5 F L Temperature Source Temporal Temporal Pulse Rate (60-100) 61 61 Pulse Location Monitor Monitor Respiratory Rate (12-18) 18 18 Respiratory rate source Observation Observation Blood Pressure (90/60-120/80) 175/84 H 122/77 H Blood Pressure Mean (mm Hg) 114 92 Source Monitor Monitor Position Semi-Fowlers Blood Pressure Location Left Arm History Since Last Visit- (Skip if this is Patient's initial visit) Have you changed medications since your No last visit? Any new allergies or adverse reactions No Had a fall/change in ADL's that may No increase risk of falls Signs or symptoms of abuse and/or No neglect since last visit Have you been in the hospital since your No last visit? Has dressing in place as prescribed Yes Has compression in place as prescribed No Has offloadiing in place as prescribed No Experienced any changes in pain level or No management Left Footwear Regular Shoe Right Footwear Regular Shoe Removable Cast Walker/Walking Boot Pain Scale: 0-10 Numeric Is Patient Pain Free? Yes Yes - Nurse 1 - General Ulcer Measurement Start: 09/29/20 08:04 Freq: Status: Active Protocol: Activity Type Activity Date Activity User E-Sign Co-Sign Detail Recorded Client Recorded Date Recorded By Document 09/29/20 08:04 RB [id number] 09/29/20 08:06 RB Document 10/06/20 08:01 DL [id number] 10/06/20 08:06 DL 09/29/20 10/06/20 08:04 08:01 Wound Center Nurse 1 #2- R HALLUX PLANTAR -Combined with other wound No -Current Size (cm) - Length 0.4 0.3 -Current Size (cm) - Width 0.2 0.2 -Current Size (cm) - Depth 0.1 0.2 -Total Square Cm 0.08 0.06 -Photo Taken No -Tunneling No -Undermining/Tunneling No -Maximum Distance #2 (cm) 0.2 -Circular Undermining No Yes -Exudate Amt Small -Wound Margin Thickened -Granulation Amt Medium (34-66%) Small (1-33%) -Granulation Quality [place] -Slough/Fibrin Yes -Necrosis Amt Small (1-33%) Small (1-33%) -Necrotic Tissue Type Adherent Slough -Structure Exposed N/A N/A -Texture (Lisa-wound Skin Appearance) Assessed,Callus Callus,Scarring -Moisture (Lisa-wound Skin Appearance) Assessed No Abnormality -Color (Lisa-wound Skin Appearance) No Abnormality -Temperature (Lisa-wound Skin No Abnormality No Abnormality Appearance) (Pt Warm) (Pt Warm) -Tenderness on Palpation (Lisa-wound No No Skin Appearance) -Ulcer Cleansing Wound Cleanser Rinsed/ Irrigated with Saline -Foul Odor after Cleansing No No -Anesthetic Used 4% Lidocaine 5% Lidocaine Solution Gel WC - Nurse 2 - General Ulcer CM Notes Start: 09/29/20 08:04 Freq: Status: Active Protocol: Activity Type Activity Date Activity User E-Sign Co-Sign Detail Recorded Client Recorded Date Recorded By Document 09/29/20 08:13 [id number] 09/29/20 08:16 Document 10/06/20 09:21 PL Laptop 10/06/20 09:22 PL Document 10/13/20 08:56 [id number] 10/13/20 08:57 09/29/20 10/06/20 10/13/20 08:13 09:21 08:56 Wound Center Nurse 2 #2- R HALLUX PLANTAR -Time 08:14 08:40 08:56 -Correct Patient Yes Yes Yes -Correct Side, Site, Position Yes Yes Yes -Correct Procedure Yes Yes Yes -Procedure Performed Yes Yes Yes -Type of Procedure Debridement Debridement Debridement -Clinical Debridement Subcutaneous Subcutaneous Subcutaneous -Tissue Removed Subcutaneous Subcutaneous Subcutaneous -Post Debridement (cm) - Length 0.6 0.3 0.3 -Post Debridement (cm) - Width 0.6 0.2 0.3 -Post Debridement (cm) - Depth 0.2 0.2 0.1 -Total Square (Post) (cm) 0.36 0.06 0.09 -Area of Debridement (cm) - Length 0.6 0.3 0.3 -Area of Debridement (cm) - Width 0.6 0.2 0.3 -Total Square (Area) (cm) 0.36 0.06 0.09 -Tunneling No No No -Undermining/Tunneling No No No -Circular Undermining No No No -Wound/Ulcer Outcome Not Healed Not Healed Not Healed -Ulcer Cleansing Rinsed/ Rinsed/ Rinsed/ Irrigated with Irrigated with Irrigated with Saline Saline Saline -Foul Odor after Cleansing No No No -Bioengineered Tissue No No No -Bleeding Controlled with Pressure Pressure Pressure -Offloading Yes Yes -Type of Offloading Camwalker Camwalker -Treatment Response Procedure Procedure Procedure Tolerated Well Tolerated Well Tolerated Well -Debridement - Subq, 1st 20sq cm Yes Yes Yes Pain Scale: 0-10 Numeric Is Patient Pain Free? Yes Yes Yes - Nurse 3 - General Ulcer D/C NN Start: 09/29/20 08:04 Freq: Status: Active Protocol: Activity Type Activity Date Activity User E-Sign Co-Sign Detail Recorded Client Recorded Date Recorded By Document 09/29/20 08:16 [id number] 09/29/20 08:16 Document 10/06/20 08:52 DL [id number] 10/06/20 08:54 DL Document 10/13/20 09:09 [facility] Desktop 10/13/20 09:10 [facility] 09/29/20 10/06/20 10/13/20 08:16 08:52 09:09 Wound Care Nurse 3 #2- R HALLUX PLANTAR -Ulcer Cleansing Rinsed/ Wound Cleanser Rinsed/ Irrigated with Irrigated with Saline Saline -Foul Odor after Cleansing No No No -Primary Dressing Applied Aquacel AG 2x2 Aquacel AG 4x4 C Hydrogel ($) -Primary Dressing Covered/Secured with Dry Gauze, Dry Gauze, Dry Gauze, Secured with Secured with Secured with Tape Tape Tape -Aquacel AG 4x4 1 -Aquacel AG 2x2 1 Treatment Response Procedure Procedure Tolerated Well Tolerated Well Pain Scale: 0-10 Numeric Is Patient Pain Free? Yes Yes Yes - Visit Discharge Discharge Condition Stable Stable Stable Ambulatory Status Ambulatory Ambulatory Ambulatory Transportation Private Auto Private Auto Private Auto Medication Reconcilliation completed & Yes provided to patient/care provider Clinical Summary of Care Provided Yes Wound debrided: plantar right hallux Wound Grade/Stage: 1 Type of Debridement: Excisional debridement Anesthesia Used: 4% Lidocaine Solution Depth: in the subcutaneous layer Percentage of wound debrided: 100 Instrument Used: #15 blade Tissue Removed: fibrous, devitalized subcutaneous, biofilm, slough Severity: Fat Layer Exposed Amount of bleeding with debridement: Mild Bleeding Controlled with: Pressure Patient tolerated procedure: Patient tolerated procedure well Assessment/Plan Assessment/Plan (1) Chronic ulcer of right foot with fat layer exposed: CODE(S): L97.512 - Non-pressure chronic ulcer of other part of right foot with fat layer exposed (2) Type 2 diabetes mellitus with diabetic polyneuropathy: CODE(S): E11.42 - Type 2 diabetes mellitus with diabetic polyneuropathy (3) Hallux limitus of right foot: CODE(S): M20.5X1 - Other deformities of toe(s) (acquired), right foot (4) Chronic malnutrition: CODE(S): E46 - Unspecified protein-calorie malnutrition PLAN: The following work up and care recommendations were made: Dressing: hydrogel daily Wash: Antibacterial soap and water Offload: To resume CAM Walker use with Plastizote offloading pocket. Compliance was discussed and is necessary for treatment success on a consistent basis. Healing expectations are very low if he is not participating this part of his treatment plan. I offered him a total contact cast and he defers. I recommended the use of a knee roller crutches or walker to help keep pressure off of the site. We discussed taking some personal time off to allow appropriate offloading. He will consider this. We also discussed internal surgical offloading by performing a Husain arthroplasty. He does not want to undergo surgery at this time and he also understands offloading and significant activity modification will be needed if surgery was pursued. We did also discuss palliative care due to noncompliance with offloading options in which wound healing is not expected however I do not recommend this. Vascular: I recommend updating noninvasive vascular studies including segmental pressures thigh and leg, HERI, and systolic toe pressures. Non invasive arterial study was completed on 09/01/20 with normal waveforms and ABIs. No gross abnormalities noted. Results were discussed. Edema: To elevate limbs at rest. Venous Doppler with reflux completed on 09/01/20 without venous insufficiency noted. Infection: He has apparent cellulitis and a prescription for for Keflex was sent to [facility]. He is advised on safe and proper use. Cultures were reviewed with Staphylococcus pseudointermediu, Staphylococcus epidermidis and Streptococcus group C. A prescription for doxycycline was sent to his choice. He was advised on safe and proper use. To avoid sun exposure. Local signs of infection have resolved and additional antibiotics and I recommend at this time. Pain: Not present due to neuropathy Host factors: He is diabetic and this may contribute to delays in healing. To continue to work with his primary care physician on diet, activity, and medication management. Imaging: His foot x-ray (3 views) were also reviewed without osseous destruction adjacent to the ulcer site. There is no foreign body or soft tissue emphysema. Labs: white blood cell count 6.4, ESR 25, C-reactive protein less than 2.9, albumin 3.8. His last A1c at [facility] was over 10. Updated A1c from Dr. Lubin's office was 7.3% on 02-12-2021 and now self reported at 6%. I answered all the patient's questions. To return to the wound healing center in 2 weeks or call sooner if the patient has any questions or concerns. If he has any progression of his cellulitis area or systemic illness development he was advised to call the office or go to the emergency room. Note: [employer] speech recognition solo truck driver software was used to create portions of this document. Sound-alike and misspelled words, as well as other solo truck driver errors may be contained in the documentation.
== END 2020-10-23 23:59 ==
LOC: WC 08:30
PROVIDERS: PCP Family Medicine; Referring Provider Podiatrist; Visit Provider Podiatrist
DX: E11.621 Type 2 diabetes mellitus with foot ulcer (principal); L97.512 Non-pressure chronic ulcer of other part of right foot with fat layer exposed; E11.42 Type 2 diabetes mellitus with diabetic polyneuropathy; M20.5X1 Other deformities of toe(s) (acquired), right foot; I87.2 Venous insufficiency (chronic) (peripheral); I10 Essential (primary) hypertension
CPT/HCPCS: 11042

== ENCOUNTER 2020-11-17 08:00 | Outpatient (RCR) | payer OTHER, SELFPAY ==
[2020-10-06 08:01] VITALS: BMI 38.0
[2020-10-24 00:31] VITALS: BP 122/77; PULSE 61; RESP 18; TEMP 36.4
[2020-11-03 08:02] VITALS: BP 157/77; PULSE 59; TEMP 36; BMI 38.0
--- NOTE | 2020-11-03 08:58 | PN.PCM_ITS ---
History of Present Illness Date of Service: 11/03/20 Chief Complaint: Right great toe ulcer History of Wound: This 55-year-old male with multiple comorbidities including diabetes and hypertension presents for chronic recurrent right great toe ulcer. He offloads with his cam walker boot. He denies fever, chill, nausea, vomiting. His redness has resolved and he denies odor or pain. He is not able to take time off work. He presents walking in his wound and his work boot today. He reports he has not been offloading. Progress of Wound: Stable and not infected Objective Data Objective Data Vital Signs: Vital Signs Temp Pulse Resp BP 96.8 F L 59 L 18 157/77 H 11/03/20 08:02 11/03/20 08:02 10/24/20 00:31 11/03/20 08:02 Weight: 113.398 kg Body Mass Index (BMI) 38.0 Physical Exam Const alert and oriented x3 General Appearance: cooperative HEENT normocephalic Extremity Extremity Narrative: No calf tenderness Diminished pulses Muscle wasting noted reduced first metatarsal phalangeal joint range of motion loaded and unloaded General Extremity: edema and no tenderness to palpation of joints or extremities; Negative for cyanosis Skin Skin Narrative: no purulence, no streaking, no odor, no infection. granular base and peripheral epithelialization. no deep probing. Reduced ulcer size noted General Skin Exam: Negative for erythema Neuro Neuro Narrative: lack of normal epicritic sensation via light touch is consistent with neuropathy status Psych cooperative and affect normal Debridement Note Debridement Note Post-Debridement Measurements and Additional Note: Post-Debridement Measurements/Treatment - Nurse 1 - General Ulcer Assessment Start: 11/03/20 08:02 Freq: Status: Active Protocol: ALIYA Activity Type Activity Date Activity User E-Sign Co-Sign Detail Recorded Client Recorded Date Recorded By Document 11/03/20 08:02 DL [id number] 11/03/20 08:05 DL Edit Result 11/03/20 08:02 DL (1) [id number] 11/03/20 08:06 DL (1) Pulse Rate (60-100) => 59 L Pulse Location => Monitor Blood Pressure (90/60-120/80) => 157/77 H Blood Pressure Mean (mm Hg) => 103 Source => Monitor 11/03/20 08:02 - Today's Visit Information Type of service Follow-up Visit (Physician/CLUB ATTENDANT ) Arrival Mode Ambulatory Transfer Assistance None Patient Identification Verified (Name & Yes ) Patient Requires Transmission-Based No Precautions Finger Stick Blood Sugar(mg/dl) (if no checked indicated): Blood Sugar Stated by Patient Height and Weight Body Mass Index (BMI) 38.0 BMI Classification Obese Vital Signs Temperature (97.8 F-99.1 F) 96.8 F L Temperature Source Temporal Pulse Rate (60-100) 59 L Pulse Location Monitor Blood Pressure (90/60-120/80) 157/77 H Blood Pressure Mean (mm Hg) 103 Source Monitor History Since Last Visit- (Skip if this is Patient's initial visit) Have you changed medications since your No last visit? Any new allergies or adverse reactions No Had a fall/change in ADL's that may No increase risk of falls Signs or symptoms of abuse and/or No neglect since last visit Have you been in the hospital since your No last visit? Has dressing in place as prescribed Yes Has compression in place as prescribed N/A Has offloadiing in place as prescribed Yes Experienced any changes in pain level or No management Pain Scale: 0-10 Numeric Is Patient Pain Free? Yes WC - Nurse 1 - General Ulcer Measurement Start: 11/03/20 08:02 Freq: Status: Active Protocol: Activity Type Activity Date Activity User E-Sign Co-Sign Detail Recorded Client Recorded Date Recorded By Document 11/03/20 08:02 AWAIS [id number] 11/03/20 08:05 AWAIS 11/03/20 08:02 Wound Center Nurse 1 #2- R HALLUX PLANTAR -Current Size (cm) - Length 0.2 -Current Size (cm) - Width 0.2 -Current Size (cm) - Depth 0.4 -Total Square Cm 0.04 -Photo Taken No -Maximum Distance #2 (cm) 0.2 -Circular Undermining Yes -Exudate Amt None Present -Wound Margin Thickened -Granulation Amt None Present (0 %) -Necrosis Amt Small (1-33%) -Necrotic Tissue Type Adherent Slough -Structure Exposed N/A -Texture (Lisa-wound Skin Appearance) Callus,Scarring -Moisture (Lisa-wound Skin Appearance) Dry/Scaly -Color (Lisa-wound Skin Appearance) No Abnormality -Temperature (Lisa-wound Skin No Abnormality Appearance) (Pt Warm) -Tenderness on Palpation (Lisa-wound No Skin Appearance) -Ulcer Cleansing Wound Cleanser -Foul Odor after Cleansing Yes, Due to Product Use -Anesthetic Used 4% Lidocaine Solution WC - Nurse 2 - General Ulcer CM Notes Start: 11/03/20 08:02 Freq: Status: Active Protocol: Activity Type Activity Date Activity User E-Sign Co-Sign Detail Recorded Client Recorded Date Recorded By Document 11/03/20 08:18 GEOVANI [id number] 11/03/20 08:19 GEOVANI 11/03/20 08:18 Wound Center Nurse 2 -Time 08:18 -Correct Patient Yes -Correct Side, Site, Position Yes -Correct Procedure Yes -Procedure Performed Yes -Type of Procedure Debridement -Clinical Debridement Subcutaneous -Tissue Removed Subcutaneous -Post Debridement (cm) - Length 0.2 -Post Debridement (cm) - Width 0.2 -Post Debridement (cm) - Depth 0.1 -Total Square (Post) (cm) 0.04 -Area of Debridement (cm) - Length 0.2 -Area of Debridement (cm) - Width 0.2 -Total Square (Area) (cm) 0.04 -Tunneling No -Undermining/Tunneling No -Circular Undermining No -Wound/Ulcer Outcome Not Healed -Ulcer Cleansing Rinsed/ Irrigated with Saline -Foul Odor after Cleansing No -Bioengineered Tissue No -Bleeding Controlled with Pressure -Offloading Yes -Type of Offloading Camwalker -Debridement - Subq, 1st 20sq cm Yes Pain Scale: 0-10 Numeric Is Patient Pain Free? Yes Wound debrided: left plantar medial hallux Wound Grade/Stage: 1 Type of Debridement: Excisional debridement Anesthesia Used: 4% Lidocaine Solution Depth: in the subcutaneous layer Percentage of wound debrided: 100 Instrument Used: #15 blade Tissue Removed: fibrous, devitalized subcutaneous, biofilm, slough Severity: Fat Layer Exposed Amount of bleeding with debridement: Mild Bleeding Controlled with: Pressure Patient tolerated procedure: Patient tolerated procedure well Assessment/Plan Assessment/Plan (1) Chronic ulcer of right foot with fat layer exposed: CODE(S): L97.512 - Non-pressure chronic ulcer of other part of right foot with fat layer exposed (2) Type 2 diabetes mellitus with diabetic polyneuropathy: CODE(S): E11.42 - Type 2 diabetes mellitus with diabetic polyneuropathy (3) Hallux limitus of right foot: CODE(S): M20.5X1 - Other deformities of toe(s) (acquired), right foot (4) Chronic malnutrition: CODE(S): E46 - Unspecified protein-calorie malnutrition PLAN: The following work up and care recommendations were made: Dressing: hydrogel daily Wash: Antibacterial soap and water Offload: To resume CAM Walker use with Plastizote offloading pocket. Compliance was discussed and is necessary for treatment success on a consistent basis. Healing expectations are very low if he is not participating this part of his treatment plan. I offered him a total contact cast and he defers. I recommended the use of a knee roller crutches or walker to help keep pressure off of the site. He reports this is difficulty is a knee roller and has not been using it. He defers a prescription for walker or crutches. I cut an additional whole lot of the insole of his work boot however this is not my top offloading recommendation. We discussed taking some personal time off to allow appropriate offloading. He reports he is not able to do this. We also discussed internal surgical offloading by performing a Husain arthroplasty. He does not want to undergo surgery at this time and he also understands offloading and significant activity modification will be needed if surgery was pursued. We did also discuss palliative care due to noncompliance with offloading options in which wound healing is not expected however I do not recommend this. Vascular: I recommend updating noninvasive vascular studies including segmental pressures thigh and leg, HERI, and systolic toe pressures. Non invasive arterial study was completed on 09/01/20 with normal waveforms and ABIs. No gross abnormalities noted. Results were discussed. Edema: To elevate limbs at rest. Venous Doppler with reflux completed on 09/01/20 without venous insufficiency noted. Infection: He has apparent cellulitis and a prescription for for Keflex was sent to [facility]. He is advised on safe and proper use. Cultures were reviewed with Staphylococcus pseudointermediu, Staphylococcus epidermidis and Streptococcus group C. A prescription for doxycycline was sent to his choice. He was advised on safe and proper use. To avoid sun exposure. Local signs of infection have resolved and additional antibiotics and I recommend at this time. Pain: Not present due to neuropathy Host factors: He is diabetic and this may contribute to delays in healing. To continue to work with his primary care physician on diet, activity, and medication management. Imaging: His foot x-ray (3 views) were also reviewed without osseous destruction adjacent to the ulcer site. There is no foreign body or soft tissue emphysema. Labs: white blood cell count 6.4, ESR 25, C-reactive protein less than 2.9, albumin 3.8. His last A1c at [facility] was over 10. Updated A1c from Dr. Lubin's office was 7.3% on 02-12-2021 and now self reported at 6%. I answered all the patient's questions. To return to the wound healing center in 2 weeks or call sooner if the patient has any questions or concerns. If he has any progression of his cellulitis area or systemic illness development he was advised to call the office or go to the emergency room. Note: [employer] speech recognition cryptologic support specialist software was used to create portions of this document. Sound-alike and misspelled words, as well as other cryptologic support specialist errors may be contained in the documentation.
[2020-11-17 08:04] VITALS: BP 157/85; PULSE 56; RESP 20; TEMP 36.4; BMI 38.0
--- NOTE | 2020-11-17 08:39 | PN.PCM_ITS ---
History of Present Illness Date of Service: 11/17/20 Chief Complaint: Right great toe ulcer History of Wound: This 55-year-old male with multiple comorbidities including diabetes and hypertension presents for chronic recurrent right great toe ulcer. He offloads with his cam walker boot. He denies fever, chill, nausea, vomiting. His redness has resolved and he denies odor or pain. He denies drainage the past 5 days. He has been wearing his cam walker at work since his last visit. Progress of Wound: healed Objective Data Objective Data Vital Signs: Vital Signs Temp Pulse Resp BP 97.5 F L 56 L 20 H 157/85 H 11/17/20 08:04 11/17/20 08:04 11/17/20 08:04 11/17/20 08:04 Weight: 113.398 kg Body Mass Index (BMI) 38.0 Physical Exam Extremity Extremity Narrative: No calf tenderness Diminished pulses Muscle wasting noted reduced first metatarsal phalangeal joint range of motion loaded and unloaded Skin Skin Narrative: no purulence, no streaking, no odor, no infection.full epithelialization and healed ulcer noted. Neuro Neuro Narrative: lack of normal epicritic sensation via light touch is consistent with neuropathy status Debridement Note Debridement Note Post-Debridement Measurements and Additional Note: Post-Debridement Measurements/Treatment - Nurse 1 - General Ulcer Assessment Start: 11/03/20 08:02 Freq: Status: Active Protocol: ALIYA Activity Type Activity Date Activity User E-Sign Co-Sign Detail Recorded Client Recorded Date Recorded By Document 11/03/20 08:02 DL [id number] 11/03/20 08:05 DL Edit Result 11/03/20 08:02 DL (1) [id number] 11/03/20 08:06 DL Document 11/17/20 08:04 DL [id number] 11/17/20 08:08 DL (1) Pulse Rate (60-100) => 59 L Pulse Location => Monitor Blood Pressure (90/60-120/80) => 157/77 H Blood Pressure Mean (mm Hg) => 103 Source => Monitor 11/03/20 11/17/20 08:02 08:04 - Today's Visit Information Type of service Follow-up Visit Follow-up Visit (Physician/REFINERY OPERATOR HELPER (Physician/REFINERY OPERATOR HELPER ) ) Arrival Mode Ambulatory Ambulatory Transfer Assistance None None Patient Identification Verified (Name & Yes Yes ) Patient Requires Transmission-Based No No Precautions Finger Stick Blood Sugar(mg/dl) (if no checked indicated): Blood Sugar Stated by Patient Height and Weight Body Mass Index (BMI) 38.0 38.0 BMI Classification Obese Obese Vital Signs Temperature (97.8 F-99.1 F) 96.8 F L 97.5 F L Temperature Source Temporal Temporal Pulse Rate (60-100) 59 L 56 L Pulse Location Monitor Monitor Respiratory Rate (12-18) 20 H Respiratory rate source Observation Blood Pressure (90/60-120/80) 157/77 H 157/85 H Blood Pressure Mean (mm Hg) 103 109 Source Monitor Monitor History Since Last Visit- (Skip if this is Patient's initial visit) Have you changed medications since your No No last visit? Any new allergies or adverse reactions No No Had a fall/change in ADL's that may No No increase risk of falls Signs or symptoms of abuse and/or No No neglect since last visit Have you been in the hospital since your No last visit? Has dressing in place as prescribed Yes Has compression in place as prescribed N/A N/A Has offloadiing in place as prescribed Yes Yes Experienced any changes in pain level or No No management Right Footwear Removable Cast Walker/Walking Boot Pain Scale: 0-10 Numeric Is Patient Pain Free? Yes Yes WC - Nurse 1 - General Ulcer Measurement Start: 11/03/20 08:02 Freq: Status: Active Protocol: Activity Type Activity Date Activity User E-Sign Co-Sign Detail Recorded Client Recorded Date Recorded By Document 11/03/20 08:02 DL [id number] 11/03/20 08:05 DL Document 11/17/20 08:04 DL [id number] 11/17/20 08:08 DL 11/03/20 11/17/20 08:02 08:04 Wound Center Nurse 1 #2- R HALLUX PLANTAR -Current Size (cm) - Length 0.2 0.1 -Current Size (cm) - Width 0.2 0.1 -Current Size (cm) - Depth 0.4 0.1 -Total Square Cm 0.04 0.01 -Photo Taken No No -Maximum Distance #2 (cm) 0.2 -Circular Undermining Yes -Exudate Amt None Present None Present -Wound Margin Thickened Thickened -Granulation Amt None Present (0 Large (67-100%) %) -Granulation Quality Pale,[place] -Necrosis Amt Small (1-33%) Small (1-33%) -Necrotic Tissue Type Adherent Slough Adherent Slough -Structure Exposed N/A N/A -Texture (Lisa-wound Skin Appearance) Callus,Scarring Callus -Moisture (Lisa-wound Skin Appearance) Dry/Scaly Dry/Scaly -Color (Lisa-wound Skin Appearance) No Abnormality No Abnormality -Temperature (Lisa-wound Skin No Abnormality No Abnormality Appearance) (Pt Warm) (Pt Warm) -Tenderness on Palpation (Lisa-wound No No Skin Appearance) -Ulcer Cleansing Wound Cleanser Wound Cleanser -Foul Odor after Cleansing Yes, Due to No Product Use -Anesthetic Used 4% Lidocaine 4% Lidocaine Solution Solution WC - Nurse 2 - General Ulcer CM Notes Start: 11/03/20 08:02 Freq: Status: Active Protocol: Activity Type Activity Date Activity User E-Sign Co-Sign Detail Recorded Client Recorded Date Recorded By Document 11/03/20 08:18 JF [id number] 11/03/20 08:19 Document 11/17/20 08:18 JF [id number] 11/17/20 08:21 11/03/20 11/17/20 08:18 08:18 Wound Center Nurse 2 #2- R HALLUX PLANTAR -Time 08:18 -Correct Patient Yes No -Correct Side, Site, Position Yes No -Correct Procedure Yes No -Procedure Performed Yes No -Type of Procedure Debridement -Clinical Debridement Subcutaneous -Tissue Removed Subcutaneous -Post Debridement (cm) - Length 0.2 0 -Post Debridement (cm) - Width 0.2 0 -Post Debridement (cm) - Depth 0.1 0 -Total Square (Post) (cm) 0.04 0 -Area of Debridement (cm) - Length 0.2 0 -Area of Debridement (cm) - Width 0.2 0 -Total Square (Area) (cm) 0.04 0 -Tunneling No -Undermining/Tunneling No -Circular Undermining No -Wound/Ulcer Outcome Not Healed Healed- Epithelialized -Ulcer Cleansing Rinsed/ Irrigated with Saline -Foul Odor after Cleansing No -Bioengineered Tissue No -Bleeding Controlled with Pressure -Offloading Yes -Type of Offloading Camwalker -Debridement - Subq, 1st 20sq cm Yes Pain Scale: 0-10 Numeric Is Patient Pain Free? Yes Yes WC - Nurse 3 - General Ulcer D/C NN Start: 11/03/20 08:02 Freq: Status: Active Protocol: Activity Type Activity Date Activity User E-Sign Co-Sign Detail Recorded Client Recorded Date Recorded By Document 11/17/20 08:23 [facility] [id number] 11/17/20 08:24 [facility] 11/17/20 08:23 WC - Visit Discharge Discharge Condition Stable Ambulatory Status Ambulatory Transportation Private Auto Notes: pt healed. no drsg Assessment/Plan Assessment/Plan (1) Chronic ulcer of right foot with fat layer exposed: CODE(S): L97.512 - Non-pressure chronic ulcer of other part of right foot with fat layer exposed (2) Type 2 diabetes mellitus with diabetic polyneuropathy: CODE(S): E11.42 - Type 2 diabetes mellitus with diabetic polyneuropathy (3) Hallux limitus of right foot: CODE(S): M20.5X1 - Other deformities of toe(s) (acquired), right foot (4) Chronic malnutrition: CODE(S): E46 - Unspecified protein-calorie malnutrition PLAN: The following work up and care recommendations were made: Dressing: d/c dressings Wash: Antibacterial soap and water Offload: To continue CAM Walker with Plastizote offloading pocket to offload the recently healed ulcer site to allow skin remodeling for the next 2 weeks. He was advised to wear white socks and to check his foot daily for recurrence. He was reassured no wound or infection is noted today. I answered all the patient's questions. To return to the wound healing center in 2 weeks or call sooner if the patient has any questions or concerns. Note: [employer] speech recognition polishing machine operator software was used to create portions of this document. Sound-alike and misspelled words, as well as other polishing machine operator errors may be contained in the documentation. The medical decision making level is low. There is noted low risk of morbidity after considering this treatment plan and diagnostic data. The problems addressed require a low medical decision making level which includes two or more minor problems, a stable chronic illness, or an acute uncomplicated illness or injury.
== END 2020-11-23 23:59 ==
LOC: WC 08:00
PROVIDERS: PCP Family Medicine; Referring Provider Podiatrist; Visit Provider Podiatrist
DX: E11.621 Type 2 diabetes mellitus with foot ulcer (principal); L97.512 Non-pressure chronic ulcer of other part of right foot with fat layer exposed; I10 Essential (primary) hypertension; E11.42 Type 2 diabetes mellitus with diabetic polyneuropathy; M20.5X1 Other deformities of toe(s) (acquired), right foot
CPT/HCPCS: 11042; 99213; G0463

== ENCOUNTER 2020-12-01 08:12 | Outpatient (RCR) | payer OTHER, SELFPAY ==
[2020-11-24 00:35] VITALS: BP 157/85; PULSE 56; RESP 20; TEMP 36.4; BMI 38.0
[2020-12-01 08:11] VITALS: BP 178/72; PULSE 61; RESP 16; TEMP 35.8; BMI 38.0
--- NOTE | 2020-12-01 09:41 | PCM.WC.PN ---
History of Present Illness Date of Service: 12/01/20 Chief Complaint: Right great toe ulcer History of Wound: This 55-year-old male with multiple comorbidities including diabetes and hypertension presents for chronic recurrent right great toe ulcer. He offloads with his cam walker boot. He denies fever, chill, nausea, vomiting. He denies drainage Progress of Wound: Healed Objective Data Objective Data Vital Signs: Vital Signs Temp Pulse Resp BP 96.5 F L 61 16 178/72 H 12/01/20 08:11 12/01/20 08:11 12/01/20 08:11 12/01/20 08:11 Oxygen Delivery Method Room Air Weight: 113.398 kg Body Mass Index (BMI) 38.0 Physical Exam Extremity Extremity Narrative: No calf tenderness Diminished pulses Muscle wasting noted reduced first metatarsal phalangeal joint range of motion loaded and unloaded Skin Skin Narrative: no purulence, no streaking, no odor, no infection.full epithelialization and healed ulcer noted. Small callus noted. Neuro Neuro Narrative: lack of normal epicritic sensation via light touch is consistent with neuropathy status Debridement Note Debridement Note Wound debrided: Wound Grade/Stage: Tissue Removed: fibrous, devitalized subcutaneous, biofilm, slough Debridement Free Text: No debridement was performed today because it is healed Assessment/Plan Assessment/Plan (1) Chronic ulcer of right foot with fat layer exposed: CODE(S): L97.512 - Non-pressure chronic ulcer of other part of right foot with fat layer exposed (2) Type 2 diabetes mellitus with diabetic polyneuropathy: CODE(S): E11.42 - Type 2 diabetes mellitus with diabetic polyneuropathy (3) Hallux limitus of right foot: CODE(S): M20.5X1 - Other deformities of toe(s) (acquired), right foot (4) Chronic malnutrition: CODE(S): E46 - Unspecified protein-calorie malnutrition PLAN: The following work up and care recommendations were made: Dressing: d/c dressings Wash: Antibacterial soap and water Offload: To continue CAM Walker with Plastizote offloading pocket to offload the recently healed ulcer site to allow skin remodeling for the next 1-2 weeks. He was advised to wear white socks and to check his foot daily for recurrence. He was reassured no wound or infection is noted today. To follow-up with the foot and ankle Center for risk assessments and to consider extra-depth shoes with diabetic insoles including offloading first ray and pocket to prevent ulcer recurrence. He has high risk for ulcer recurrence given his diabetic status and foot deformities such as hallux limitus. I answered all the patient's questions. He is discharged from the wound healing center at this time. Note: [employer] speech recognition bag making machine operator software was used to create portions of this document. Sound-alike and misspelled words, as well as other bag making machine operator errors may be contained in the documentation. The medical decision making level is low. There is noted low risk of morbidity after considering this treatment plan and diagnostic data.
== END 2020-12-01 08:44 | disposition home or self-care (01) ==
LOC: WC 08:12
PROVIDERS: PCP Family Medicine; Referring Provider Podiatrist; Visit Provider Podiatrist
DX: E11.42 Type 2 diabetes mellitus with diabetic polyneuropathy (principal); I10 Essential (primary) hypertension; M20.5X1 Other deformities of toe(s) (acquired), right foot
CPT/HCPCS: 99213; G0463

== ENCOUNTER → 2021-01-27 | Outpatient (CLI) | payer OTHER, SELFPAY | END | disposition home or self-care (01) | PROVIDERS: PCP Family Medicine; Visit Provider Family Medicine | DX: U07.1 COVID-19 (principal) | CPT/HCPCS: 87635; U0005; U0003 ==

== ENCOUNTER 2021-01-28 17:29 | Outpatient (CLI) | payer OTHER, SELFPAY ==
[2021-01-28 18:14] VITALS: BP 132/84; PULSE 93; RESP 18; TEMP 38.9; O2SAT 94; BMI 38.7
[2021-01-28] MEDS: 0.9% Saline Lock 10 ML Syringe IV (18:24)
[2021-01-28] MEDS: Acetaminophen 325 MG Tablet 650 MG PO (18:25)
[2021-01-28 19:00] VITALS: BP 117/65; PULSE 81; RESP 16; TEMP 37.5; O2SAT 94
[2021-01-28 19:55] VITALS: BP 118/69; PULSE 81; RESP 16; TEMP 37.4; O2SAT 94
== END 2021-01-28 20:05 | disposition home or self-care (01) ==
LOC: MS3OUT 17:29 → MS3 17:30
PROVIDERS: PCP Family Medicine; Referring Provider Nurse Practitioner Adult Health; Visit Provider Nurse Practitioner Adult Health
DX: U07.1 COVID-19 (principal)
CPT/HCPCS: J7050; M0245; Q0245; A4216

== ENCOUNTER 2021-01-29 16:06 | Emergency (ER) | payer OTHER, SELFPAY ==
[2021-01-29] VITALS (7 sets, daily range): BP systolic 137–142; BP diastolic 80–89; PULSE 87–89; RESP 16–18; TEMP 36.6; O2SAT 92–99; BMI 37.3
--- NOTE | 2021-01-29 16:23 | EDS_ITS ---
HPI History of Present Illness Chief Complaint: General Illness Detail of Chief Complaint: Cough and not feeling well Informant: patient, parent, legal guardian, spouse/S.O., family, friend, EMS, police/commercial lines sales executive, PCP, SNF, mental health staff and other Narrative Narrative: Patient presents to the emergency department stating he is not feeling well related to COVID-19. Patient had a positive test 4 days ago and had monoclonal infusion yesterday. Patient states that he and his are concerned that his oxygen level was dropping to 93 to 94% today. He complains of chest pain with cough. He has had fever and chills as well as body aches. He denies loss of taste or smell. Patient did not receive the Covid vaccine. Patient states that his also has Covid. Patient does have history of diabetes, hypertension, and high cholesterol. [facility] Medical History (Updated 01/29/21 @ 18:[address] Sukh Brandt, ) Acute [place], subendocardial Atherosclerotic heart disease of [place] coronary artery without angina pectoris Cardiac murmur Essential hypertension Old myocardial infarction JOSEPH (obstructive sleep apnea) Pure hypercholesterolemia Type 2 diabetes mellitus Home Medications aspirin 81 mg tablet,delayed release 81 mg PO QDAY 03/08/17 [History Last Taken Unknown] lisinopril 5 mg tablet 5 mg PO QDAY #90 tab 09/21/17 [Rx Last Taken Unknown] vitamins A,C,C-oztw-wjvvxe 7,160 unit-113 mg-100 unit tablet 1 tab PO DAILY 12/11/17 [History Last Taken Unknown] pravastatin 40 mg tablet 40 mg PO QHS #30 tab 08/13/18 [Rx Last Taken Unknown] metformin 1,000 mg tablet 1,000 mg PO BID 30 Days #60 tab 01/22/19 [History Last Taken Unknown] pioglitazone 15 mg tablet 45 mg PO DAILY 01/22/19 [History Last Taken Unknown] glimepiride 2 mg PO DAILY 08/13/19 [History Last Taken Unknown] Nutra Vision 1 tab DAILY 08/18/20 [History Last Taken Unknown] dapagliflozin [Farxiga] 5 mg PO DAILY 08/18/20 [History Last Taken Unknown] metoprolol tartrate 50 mg tablet 50 mg PO BID #180 tab 10/25/20 [Rx Last Taken Unknown] Allergy/AdvReac Type Severity Reaction Status Date / Time Penicillins Allergy Severe Hives Verified 01/29/21 16:09 Family History Father Heart disease [place] lung Sister Arthritis Surgical History History of tonsillectomy and adenoidectomy History of umbilical hernia repair Presence of coronary angioplasty implant and graft (~04/01/07) Presence of stent in coronary artery (~04/01/07) Status post correction of deviated nasal septum Social History (Updated 01/22/19 @ 17:[address] Feliciano Warren MD) Smoking Status: Never smoker second hand exposure: No alcohol intake: current alcohol intake frequency: a few times a month substance use type: does not use caffeine: Yes Type: coffee Number of servings: 1 ROS ROS ED Constitutional Constitutional ED: Reports systems reviewed and no addt'l complaints, except as documented, chills and fever(s); Denies body ache(s) or change in weight Eyes Eyes: Denies acute decrease in peripheral vision, change in vision, double vision or loss of vision ENT ENT ED: Reports none; Denies ear pain, lip swelling, loss taste/smell, neck pain, otalgia or sore throat Cardiovascular Cardiovascular: Reports none and chest pain; Denies abdominal pain, chest pain with activity, leg edema, lightheadedness, palpitations, rapid heart rate or syncope Respiratory/Chest Respiratory/Chest: Reports none and cough; Denies change in mental status, dry cough, dyspnea, hemoptysis, shortness of breath at rest or shortness of breath with exertion Gastrointestinal Gastrointestinal: Reports none; Denies abdominal pain, change in stool character, diarrhea, hematemesis, hematochezia, melena, rectal bleeding or vomiting Genitourinary Genitourinary ED: Reports none; Denies abdominal discomfort, anuria, dysuria, genital pain or polyuria Musculoskeletal Musculoskeletal: Reports none and myalgias; Denies arthralgias, back pain, difficulty walking, extremity pain or muscle weakness Integumentary Reports none; Denies abscess or rash Neurologic Neurologic: Reports none; Denies abnormal gait, confusion, focal weakness, frequent falls, headache(s), loss of vision, numbness, paresthesias, radicular pain, vertigo or weakness Psychiatric Psychiatric: Reports systems reviewed and no addt'l complaints, except as documented and none; Denies behavioral changes, confusion, difficulty concentrating, hallucinations, suicidal ideation, tactile hallucinations or visual hallucinations Endocrine Endocrinology: Denies none, cold intolerance, excessive sweating, fatigue or heat intolerance Hematologic/Lymphatic Hematologic/Lymphatic: Reports none; Denies anemia, easy bleeding or easy bruising Allergic/Immunologic Allergic/Immunologic ED: Denies as per HPI, none, lip swelling, mouth swelling, throat swelling, tongue swelling or hives EXAM Physical Exam Const Vital Signs: 01/29/21 16:07 01/29/21 16:33 01/29/21 16:38 Temperature 97.9 F 97.9 F Temperature Source Temporal Temporal Pulse Rate 89 89 Respiratory Rate 18 18 Respiratory Pattern Normal Blood Pressure 139/80 H 139/80 H Blood Pressure Mean 99 99 Pulse Ox 94 94 Oxygen Delivery Method Room Air Room Air 01/29/21 17:22 Temperature Temperature Source Pulse Rate 87 Respiratory Rate 16 Respiratory Pattern Blood Pressure 137/84 H Blood Pressure Mean 101 Pulse Ox 99 Oxygen Delivery Method Positive well nourished and well developed General Appearance ED: well developed and NAD HEENT Reports TM's clear and moist mucous membranes normocephalic and atraumatic; Negative for trauma or tenderness Tympanic Membrane ED: Yes TM's clear Eyes PERRL and EOMs intact bilaterally General Eye ED: Negative for pale conjunctiva or scleral icterus Neck no lymphadenopathy, supple and no JVD General: Negative for tenderness Chest Wall inspection of chest normal and palpation of chest normal Chest: Negative for tenderness Resp normal respiratory effort and clear to auscultation bilaterally Effort and Inspection: Negative for respiratory distress or pain with movement Auscultation: Negative for rhonchi, wheezes or diminished lung sounds Cardio regular rate, regular rhythm, S1 normal heart sound, S2 normal heart sound and no murmurs Peripheral Pulses: pulses 2+ throughout GI normal to inspection, nondistended, normoactive bowel sounds, soft to palpation, non-tender, non-distended and no masses Back/Spine no CVA tenderness and no thoracic nor lumbar tenderness Extremity normal to inspection General Extremety ED: Negative for edema General Extremity: Negative for edema Neuro oriented x3, CN's II-XII intact bilaterally, no sensory deficits noted and gait normal Sensorium / Orientation: awake, alert, oriented to person, oriented to place and oriented to time Motor Exam: strength 5/5 throughout and strength abnormal Psych mental status grossly normal Skin no rashes or lesions noted and no wounds MDM MDM MDM Narrative Medical decision making narrative: IV line established on arrival. Lab work obtained was consistent with Covid leukopenia. D-dimer was elevated therefore CT of the chest was obtained which was negative for PE however he was noted to have severe coronary artery disease and aortic valve degeneration and recommended cardiology attention. I discussed case with patient's tester wafer substrate Dr. Feliciano Warren who will follow up patient in the office. Patient advised to return if increasing shortness of breath, O2 sat should drop below 90, or condition should worsen anyway. Lab Data Attestation: I reviewed the patient's lab results. Labs: Laboratory Results - last 24 hr 01/29/21 01/29/21 01/29/21 16:43 16:43 16:43 WBC 2.2 L RBC 5.25 Hgb 16.1 Hct 46.7 MCV 89.0 MCH 30.7 MCHC 34.5 RDW Std Deviation 41.4 RDW Coeff of Libra 12.6 Plt Count 81 L MPV 10.7 Immature Gran % (Auto) 0.500 Neut % (Auto) 47.0 Lymph % (Auto) 38.2 Beckham % (Auto) 13.8 H Eos % (Auto) 0.5 Baso % (Auto) 0.0 Absolute Neuts (auto) 1.0 L Absolute Lymphs (auto) 0.83 Nucleated RBC % 0 Differential Comment SCANNED Platelet Estimate SLT DEC D-Dimer Quant (PE/DVT) 1.99 H* Sodium 130 L Potassium 3.6 Chloride 97 L Carbon Dioxide 28.0 Anion Gap 5 BUN 7 Creatinine 0.70 Estim Creat Clear Calc 112.64 Est GFR (MDRD) Af Amer 150 Est GFR (MDRD) Non-Af 124 BUN/Creatinine Ratio 10.0 Glucose 292 H Calcium 8.3 L Radiography Diagnostic Testing: Clinical Impression(s) from Imaging Studies Chest X-Ray 01/29/21 16:55 IMPRESSION: Normal x-ray examination of the chest. Electronically Signed: Nichelle Balderas MD at 17:11 EDT Tel , Service support , Chest CTA 01/29/21 17:19 IMPRESSION: 1. No pulmonary embolism 2. Covid pneumonia. 3. Severe coronary artery disease. 4. Early aortic valve degeneration, cardiology attention advised. Electronically Signed: Nichelle Balderas MD at 18:26 EDT Tel , Service support , Discharge Plan Triage Chief Complaint: General Illness ED Provider: Sukh Brandt Dx/Rx/DC Orders Clinical Impression: Pneumonia due to 2019 novel coronavirus Instructions: Caring for Someone Who Has COVID-19 Prescriptions: No Action aspirin 81 mg tablet,delayed release (DR/EC) 81 mg PO QDAY RF: 0 vitamins A,C,T-deqn-dwefbz 7,160 unit-113 mg-100 unit tablet 7,160-113-100 btjl-oa-xrlv tablet 1 tab PO DAILY RF: 0 metformin 1,000 mg tablet 1,000 mg PO BID 30 Days Qty: 60 RF: 0 pioglitazone [Actos] 15 mg tablet 45 mg PO DAILY RF: 0 glimepiride 2 MG tablet 2 mg PO DAILY RF: 0 Nutra Vision 1 tab DAILY RF: 0 Farxiga 5 mg Tablet 5 mg PO DAILY RF: 0 lisinopril 5 mg tablet 5 mg PO QDAY Qty: 90 RF: 3 pravastatin [Pravachol] 40 mg tablet 40 mg PO QHS Qty: 30 RF: 11 metoprolol tartrate 50 mg tablet 50 mg PO BID Qty: 180 RF: 3 Primary Care Provider: Clovis Rivero Referrals: Clovis Rivero DO [Primary Care Provider] - Feliciano Warren MD [STAFF PHYSICIAN] - 5-7 Days Disposition Disposition: Home, Self Care
--- NOTE | 2021-01-29 16:55 | RAD_ITS ---
STUDY: X-RAY CHEST REASON FOR EXAM: Male, 55 years old. cough TECHNIQUE: Frontal portable view of the chest COMPARISON: None. FINDINGS: The lungs are clear and expanded. There is no demonstrated pleural abnormality. Normal size heart. Normal mediastinum and skinny. Normal visualized pulmonary arteries. Normal visualized aortic arch and descending thoracic aorta. Normal visualized thoracic spine. Normal visualized ribs, clavicles, and shoulders. There is no demonstrated abnormality of the visualized soft tissue structures of the upper abdomen. RAD/Chest 1 View (Portable) IMPRESSION: Normal x-ray examination of the chest. Electronically Signed: Nichelle Balderas MD at 17:11 EDT Tel , Service support ,
[2021-01-29 17:01] LABS: Absolute Lymphocyte Count 0.83 X10^3/uL (0.83-4.51); Eosinophil# 0.01 X10^3/uL; Eosinophils% 0.5 % (0-5); Hematocrit 46.7 % (40-54); Hemoglobin 16.1 g/dL (13.0-16.5); Lymphocyte # 0.83 X10^3/ul (0.83-4.51); Lymphocyte % 38.2 % (19-41); Mean Corp Hgb Conc 34.5 g/dL (32-36); Mean Corpuscular Hgb 30.7 pg (27.0-32.0); Mean Platelet Vol. 10.7 fl (6.2-12.0); Monocyte% 13.8 % (0-10); NRBC Flagged by Analyzer 0 % (0-5); Neutrophil # 1.02 X10^3/uL (2.7-7.7); POSITIVE COUNT YES; Platelet Count 81 K/mm3 (150-450); RBC Distribution Width CV 12.6 % (11.6-14.6); RBC Distribution Width SD 41.4 fl (35.1-43.9); Red Blood Count 5.25 M/mm3 (4.6-6.2); White Blood Count 2.2 K/mm3 (4.4-11.0)
[2021-01-29 17:09] LABS: Anion Gap 5 (5-15); BUN 7 mg/dL (7-18); Calcium,Total 8.3 mg/dL (8.5-10.1); Chloride 97 mmol/L (98-107); EST Glomerular Filtration Rate 124 mL/min (>60); Est Glom Filt Rate - Afr Amer 150 mL/min (>60); Estimated Creatinine Clearance 112.64 ml/min; Glucose 292 mg/dL (74-106); Potassium 3.6 mmol/L (3.5-5.1); Sodium Level 130 mmol/L (136-145)
[2021-01-29 17:15] LABS: Differential Indicated SCAN CRITERIA MET
[2021-01-29 17:18] LABS: D-Dimer Quantitative (DVT/PE) 1.99 FEU/ug/m (0.27-0.49)
--- NOTE | 2021-01-29 17:19 | CT_ITS ---
STUDY: CTA CHEST REASON FOR EXAM: Male, 55 years old. RADIATION DOSAGE (If Supplied By Facility): CTDIvol = ( 12.66 ) mGy, DLP = ( 533.52 ) mGycm TECHNIQUE: The examination was performed with the intravenous administration of IV 100mL Isovue-370. Post-processing of the angiographic images was performed, with multiplanar reformation and 3D reconstruction. Individualized dose optimization techniques were used for this CT. COMPARISON: None. FINDINGS: There is no acute or chronic pulmonary embolism. Aorta is of normal caliber. There are multifocal lobular and subsegmental groundglass opacities with peripheral and basal predominance.. There is no pneumothorax, pulmonary edema or pleural effusions. There are expected inflammatory reactive benign mediastinal lymph nodes. Coronary arteries are severely diseased. Osseous structures are intact. This probably mild aortic valve stenosis/early degeneration. Abdominal structures are unremarkable. CT/CTA Chest W/WO Contrast IMPRESSION: 1. No pulmonary embolism 2. Covid pneumonia. 3. Severe coronary artery disease. 4. Early aortic valve degeneration, cardiology attention advised. Electronically Signed: Nichelle Balderas MD at 18:26 EDT Tel , Service support ,
[2021-01-29 17:40] LABS: Differential Comment SCANNED
[2021-01-29 17:41] LABS: Platelet Estimate SLT DEC (ADEQ)
== END 2021-01-29 18:52 | disposition home or self-care (01) ==
PROVIDERS: Emergency Provider Emergency Medicine; PCP Family Medicine
DX: U07.1 COVID-19 (principal); J12.82 Pneumonia due to coronavirus disease 2019; I25.10 Atherosclerotic heart disease of native coronary artery without angina pectoris; I35.8 Other nonrheumatic aortic valve disorders; I25.2 Old myocardial infarction; I10 Essential (primary) hypertension; E78.00 Pure hypercholesterolemia, unspecified; E11.9 Type 2 diabetes mellitus without complications; Z95.5 Presence of coronary angioplasty implant and graft; Z79.82 Long term (current) use of aspirin; Z79.84 Long term (current) use of oral hypoglycemic drugs; Z79.899 Other long term (current) drug therapy
CPT/HCPCS: 71045; 71275; 80048; 85025; 85379; 99283; Q9967

== ENCOUNTER → 2021-03-16 15:08 | Outpatient (CLI) | payer OTHER, SELFPAY | PROVIDERS: PCP Family Medicine; Referring Provider Internal Medicine Cardiovascular Disease; Visit Provider Internal Medicine Cardiovascular Disease | DX: I25.10 Atherosclerotic heart disease of native coronary artery without angina pectoris (principal) | CPT/HCPCS: 93306; Q9957; A4216; C8929 ==

== ENCOUNTER 2021-05-17 06:39 | Outpatient (CLI) | payer OTHER, SELFPAY ==
--- NOTE | 2021-05-17 18:39 | STRESSREP_ITS ---
Stress Test Report Date: 05-17-2021 Procedure: Pharmacologic stress nuclear imaging study Indications: CAD; non-ST segment elevation IN; PCI; aortic valve disorder Consent: Per the patient Procedure: The patient underwent pharmacologic (Regadenoson 0.4mg ) evaluation with a peak heart rate of 70 beats per minute (42%predicted maximal heart rate) and a peak blood pressure of 146/88 mmHg. The baseline ECG demonstrated sinus bradycardia. The peak pharmacologic ECG demonstrated no obvious ECG changes. [There were no cardiac dysrhythmias pretest, during pharmacologic infusion, or recovery]. [There was no complaint of chest discomfort during pharmacologic infusion or recovery]. The examination was discontinued secondary to completion of protocol. Impression: 1. Pharmacologic (Regadenoson) evaluation 2. Peak pharmacologic ECG with no obvious ECG changes. 3. [There were no cardiac dysrhythmias pretest, during pharmacologic infusion, or recovery]. 4. Nuclear images pending Myocardial perfusion imaging study: Technique: The patient was injected with 11.4 millicuries of technetium 99m Cardiolite and subsequently rest SPECT Cardiolite nuclear imaging was obtained in the horizontal long, vertical long, and short axis views. The patient underwent pharmacologic (Regadenoson) evaluation with a peak heart rate of 70 beats per minute (42% percent predicted maximal heart rate) and a peak blood pressure of 146/88 mmHg. The patient was injected with 36.0 millicuries of technetium 99m Cardiolite and subsequently stress SPECT Cardiolite nuclear imaging was obtained in the horizontal long, vertical long, and short axis views. A gated Cardiolite study at peak stress was obtained. Interpretation: Rest and stress SPECT Cardiolite nuclear imaging status post realignment, normalization, and attenuation correction demonstrate a small area of subtle diminished tracer uptake near the apical segments without significant change between rest and stress. [There is end systolic thickening and brightening]. [The gated Cardiolite study demonstrates myocardial thickening and inward wall motion]. The reported LVEF is 65%. Impression: 1. Rest and stress SPECT her nuclear imaging demonstrate myocardial perfusion changes appearing compatible with physiologic apical thinning with no myocardial perfusion changes considered diagnostic for associated stress-induced myocardial ischemia. 2. The gated Cardiolite study reports an LVEF of 65 The gated Cardiolite study demonstrates myocardial thickening and inward wall motion There is end systolic thickening and brightening There were no cardiac dysrhythmias pretest, during pharmacologic infusion, or recoveryThere was no complaint of chest discomfort during pharmacologic infusion or recoveryThere were no cardiac dysrhythmias pretest, during pharmacologic infusion, or recovery%. This note was generated with PrivacyProtectoration software. It may contain incorrect words, spelling, and punctuation that were not noted in checking the note before signing.
== END 2021-05-17 23:59 | disposition home or self-care (01) ==
PROVIDERS: PCP Family Medicine; Referring Provider Internal Medicine Cardiovascular Disease; Visit Provider Internal Medicine Cardiovascular Disease
DX: I25.10 Atherosclerotic heart disease of native coronary artery without angina pectoris (principal); Z95.5 Presence of coronary angioplasty implant and graft
CPT/HCPCS: 78452; 93017; A9500; A4216; J2785

== ENCOUNTER 2021-05-24 10:05 | Outpatient (CLI) | payer OTHER, SELFPAY ==
[2021-05-24 12:27] LABS: Basophil# 0.01 X10^3/uL; Basophil% 0.2 % (0-1); Eosinophil# 0.12 X10^3/uL; Eosinophils% 1.9 % (0-5); Hematocrit 46.5 % (40-54); Hemoglobin 15.5 g/dL (13.0-16.5); Lymphocyte % 25.4 % (19-41); Mean Corp Hgb Conc 33.3 g/dL (32-36); Mean Corpuscular Hgb 31.2 pg (27.0-32.0); Mean Corpuscular Volume 93.6 fL (80-94); Mean Platelet Vol. 11.4 fl (6.2-12.0); Monocyte# 0.57 X10^3/uL; Monocyte% 9.1 % (0-10); NRBC Flagged by Analyzer 0 % (0-5); Neutrophil # 3.97 X10^3/uL (2.7-7.7); Neutrophil % 63.1 % (47-70); Platelet Count 129 K/mm3 (150-450); RBC Distribution Width SD 44.6 fl (35.1-43.9); Red Blood Count 4.97 M/mm3 (4.6-6.2); White Blood Count 6.3 K/mm3 (4.4-11.0)
[2021-05-24 12:58] LABS: AST(SGOT) 15 U/L (15-37); Alanine Aminotransfer ALT/SGPT 23 U/L (16-61); Albumin, Serum 3.5 g/dL (3.2-5.0); Alkaline Phosphatase 62 U/L (45-117); Anion Gap 2 (5-15); BUN 12 mg/dL (7-18); BUN/Creat Ratio 15.4 RATIO (10-20); Calcium,Total 8.9 mg/dL (8.5-10.1); Chloride 109 mmol/L (98-107); Cholesterol 100 mg/dL (200); Creatinine, Serum 0.78 mg/dL (0.70-1.30); EST Glomerular Filtration Rate 109 mL/min (>60); Est Glom Filt Rate - Afr Amer 132 mL/min (>60); Globulin 3.5 g/dL (2.2-4.2); Glucose 168 mg/dL (74-106); High Density Lipoprotein 39 mg/dL; Potassium 4.2 mmol/L (3.5-5.1); Sodium Level 139 mmol/L (136-145); Triglycerides 89 mg/dL; Very Low Density Lipoprotein 18 mg/dL (5-40)
== END 2021-05-24 23:59 | disposition home or self-care (01) ==
LOC: MFPLAB 10:10
PROVIDERS: PCP Family Medicine; Referring Provider Family Medicine; Visit Provider Family Medicine
DX: E11.40 Type 2 diabetes mellitus with diabetic neuropathy, unspecified (principal); E11.3299 Type 2 diabetes mellitus with mild nonproliferative diabetic retinopathy without macular edema, unspecified eye; E11.69 Type 2 diabetes mellitus with other specified complication; I25.10 Atherosclerotic heart disease of native coronary artery without angina pectoris; I10 Essential (primary) hypertension; E66.9 Obesity, unspecified
CPT/HCPCS: 36415; 80053; 80061; 85025

== ENCOUNTER → 2022-02-21 | Outpatient (CLI) | payer OTHER, SELFPAY ==
[2022-02-21 18:39] LABS: ALB/GLOB Ratio 1.3 RATIO (0.9-2.4); AST(SGOT) 16 U/L (15-37); Alanine Aminotransfer ALT/SGPT 25 U/L (16-61); Albumin, Serum 3.9 g/dL (3.2-5.0); Alkaline Phosphatase 73 U/L (45-117); Anion Gap 6 (5-15); BUN 13 mg/dL (7-18); BUN/Creat Ratio 15.9 RATIO (10-20); Calcium,Total 9.2 mg/dL (8.5-10.1); Chloride 106 mmol/L (98-107); Creatinine, Serum 0.82 mg/dL (0.70-1.30); EST Glomerular Filtration Rate 103 mL/min (>60); Est Glom Filt Rate - Afr Amer 125 mL/min (>60); Glucose 93 mg/dL (74-106); Protein, Total 6.9 g/dL (6.4-8.2); Sodium Level 139 mmol/L (136-145)
== END | disposition home or self-care (01) ==
PROVIDERS: PCP Family Medicine; Referring Provider Family Medicine; Visit Provider Family Medicine
DX: E11.40 Type 2 diabetes mellitus with diabetic neuropathy, unspecified (principal)
CPT/HCPCS: 36415; 80053

== ENCOUNTER → 2022-06-20 | Outpatient (CLI) | payer OTHER, SELFPAY ==
[2022-06-20 18:53] LABS: ALB/GLOB Ratio 1.1 RATIO (0.9-2.4); AST(SGOT) 19 U/L (15-37); Alanine Aminotransfer ALT/SGPT 24 U/L (16-61); Albumin, Serum 3.5 g/dL (3.2-5.0); Alkaline Phosphatase 65 U/L (45-117); Anion Gap 4 (5-15); BUN 15 mg/dL (7-18); Calcium,Total 9.1 mg/dL (8.5-10.1); Chloride 108 mmol/L (98-107); Cholesterol 107 mg/dL (200); Creatinine, Serum 0.79 mg/dL (0.70-1.30); EST Glomerular Filtration Rate 107 mL/min (>60); Est Glom Filt Rate - Afr Amer 129 mL/min (>60); Globulin 3.3 g/dL (2.2-4.2); Glucose 110 mg/dL (74-106); High Density Lipoprotein 35 mg/dL; Lipase 149 U/L (73-393); Potassium 3.9 mmol/L (3.5-5.1); Protein, Total 6.8 g/dL (6.4-8.2); Sodium Level 138 mmol/L (136-145)
== END | disposition home or self-care (01) ==
PROVIDERS: PCP Family Medicine; Referring Provider Family Medicine; Visit Provider Family Medicine
DX: E11.69 Type 2 diabetes mellitus with other specified complication (principal); E78.1 Pure hyperglyceridemia; I25.10 Atherosclerotic heart disease of native coronary artery without angina pectoris
CPT/HCPCS: 36415; 80053; 82465; 83690; 83718

== ENCOUNTER → 2022-10-09 | Outpatient (CLI) | payer OTHER, SELFPAY ==
--- NOTE | 2022-10-09 15:01 | ECHOD_ITS ---
Reason For Study: Rheumatic Procedure This was a 2D Doppler, Color Flow transthoracic echocardiogram. The study was technically difficult. Contrast injection was performed. Exam performed in department. Left Ventricle Normal LV size. Left ventricular systolic function is normal. The estimated ejection fraction is 55 %. No regional wall motion abnormalities noted. Right Ventricle Normal RV size. Normal systolic function. Atria Normal left atrium. Normal right atrium. Mitral Valve There is mild mitral annular calcification. Aortic Valve The aortic valve is not well visualized. Moderate focal aortic valve calcification. Peak aortic valve gradient 47 mmHg. Mean aortic valve gradient 27 mmHg. Moderate aortic stenosis. Pulmonic Valve The pulmonic valve is not well visualized. Great Vessels Normal aortic root. The pulmonary artery is normal size. Normal inferior vena cava. Pericardium/Pleural Trivial pericardial effusion. MMode/2D Measurements & Calculations LVIDd: 5.6 cm IVSd: 1.1 cm LVOT diam: 2.0 cm LVIDs: 3.7 cm LVPWd: 1.3 cm LVOT area: 3.3 cm2 RVDd: 3.3 cm FS: 33.1 % Ao root diam: 3.6 cm LAV(MOD-bp): 64.0 ml LA A4 area: 18.3 cm2 LA dimension: 4.1 cm LAV(MOD-bp) Indexed: 28.5 ml/m2 LAV(MOD-sp2): 78.7 ml LAV(MOD-sp4): 48.3 ml RA A4 area: 17.9 cm2 Time Measurements MV dec time: 0.41 sec Doppler Measurements & Calculations MV E max cyrus: 75.6 cm/sec Lat Peak E' Cyrus: 9.0 cm/sec Med Peak E' Cyrus: 8.4 cm/sec MV A max cyrus: 114.4 cm/sec E/E' lat: 8.4 E/E' med: 9.0 MV E/A: 0.66 MV V2 max: 120.4 cm/sec MV P1/2t max cyrus: 78.6 cm/sec Ao V2 max: 340.9 cm/sec MV max P.8 mmHg MV P1/2t: 120.3 msec Ao max P.6 mmHg MV V2 mean: 62.7 cm/sec MV dec slope: 191.3 cm/sec2 Ao V2 mean: 241.9 cm/sec MV mean P.9 mmHg MVA(P1/2t): 1.8 cm2 Ao mean P.6 mmHg MV V2 VTI: 32.8 cm Ao V2 VTI: 83.4 cm MVA(VTI): 2.3 cm2 AV (velocity ratio): 0.27 YAMILE(I,D): 0.89 cm2 YAMILE(V,D): 0.84 cm2 LV V1 max: 87.1 cm/sec SV(LVOT): 74.6 ml PA V2 max: 101.5 cm/sec LV V1 max P.1 mmHg PA V2 mean: 75.1 cm/sec LV V1 mean P.0 mmHg LV V1 mean: 67.3 cm/sec LV V1 VTI: 22.6 cm ECHO/Echo Complete Interpretation Summary Normal LV size. Left ventricular systolic function is normal. The estimated ejection fraction is 55 %. Moderate focal aortic valve calcification. Mean aortic valve gradient 27 mmHg. Compared to the previous the valve gradients at the same suggesting moderate ao rtic stenosis. Ordering Physician: Franco Vidal Referring Physician: Austin Lubin MD Performed By: Bulmaro Nam RCS
== END | disposition home or self-care (01) ==
LOC: CVS 14:59
PROVIDERS: PCP Family Medicine; Referring Provider Nurse Practitioner Family; Visit Provider Nurse Practitioner Family
DX: I06.2 Rheumatic aortic stenosis with insufficiency (principal); I25.10 Atherosclerotic heart disease of native coronary artery without angina pectoris; I10 Essential (primary) hypertension; R01.1 Cardiac murmur, unspecified; Z95.5 Presence of coronary angioplasty implant and graft
CPT/HCPCS: 93306

== ENCOUNTER → 2023-05-23 | Outpatient (CLI) | payer OTHER, SELFPAY ==
--- OUTSIDE RECORDS SUMMARY | 2023-05-23 07:09 | XMS RPT_ITS | CCD ---
Author Name Unknown Address [address] [place] [address] Organization [facility] Care Team Providers Care Plant Assigner Name Role Phone Savannah Kan RN Unavailable Unavailable Savannah Kan RN Unavailable Unavailable Allergies Allergy Classification Reported Allergen(s) Allergy Type Date of Onset Reaction(s) Facility (2 sources) penicillin Drug Allergy 11-01-2011 [facility] Work Phone: Medications Completed/Discontinued Medications Medication Drug Class(es) Dates Sig (Normalized) Sig (Original) aspirin 81 mg oral tablet (4 sources) Nonsteroidal Anti-inflammatory Drug Start: 11-01-2011 take 1 tablet by mouth once daily ASPIRIN 81 MG TABS One tablet by mouth daily -enteric coated ASPIRIN [id number] Kelly Hackett Problems Active Problems Problem Classification Problem Date Documented Date Episodic/Chronic Acute myocardial infarction (2 sources) Non-ST elevation (NSTEMI) myocardial infarction; Translations: [Non-ST elevation (NSTEMI) myocardial infarction] Onset: 11-01-2011 11-01-2011 Chronic Coronary atherosclerosis and other heart disease (6 sources) Atherosclerotic heart disease of [place] coronary artery without angina pectoris; Translations: [Angina pectoris] Onset: 11-01-2011 12-02-2015 Chronic Diabetes mellitus with complications (2 sources) 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; Translations: [Type 2 diabetes mellitus with diabetic peripheral angiopathy without gangrene] Onset: 11-01-2011 11-01-2011 Chronic Disorders of lipid metabolism (2 sources) Hyperlipidemia; Translations: [Hyperlipidemia, unspecified] Onset: 11-01-2011 11-01-2011 Chronic Essential hypertension (2 sources) Hypertensive disorder; Translations: [Essential (primary) hypertension] Onset: 11-01-2011 11-01-2011 Chronic Unclassified (6 sources) Obstructive sleep apnea of adult; Translations: [Body mass index (BMI) 38.0-38.9, adult] Onset: 12-27-2012 02-06-2017 Chronic Unclassified (2 sources) Long-term drug therapy; Translations: [Other watermelon inspector (current) drug therapy] Onset: 11-01-2011 11-01-2011 Past or Other Problems Problem Classification Problem Date Documented Da te Episodic/Chronic Coronary atherosclerosis and other heart disease (2 sources) Coronary angioplasty status; Translations: [Coronary angioplasty status] Onset: 11-01-2011 11-01-2011 Episodic Other lower respiratory disease (2 sources) Snoring; Translations: [Snoring] Onset: 02-06-2017 02-06-2017 Episodic Results Test Name Value Interpretation Reference Range Facil ity Vital Signs Date Time Vital Sign Value Performing Clinician Lesli trinidad 11-23-2016 15:18-0400 BMI (Body Mass Index) 34.51 kg/m2 [facility] Work Phone: 11-23-2016 15:18-0400 BP Diastolic 74 mm[Hg] Savannah Kan RN [facility] Work Phone: 11-23-2016 15:18-0400 BP Systolic 126 mm[Hg] [facility] Work Phone: 11-23-2016 15:18-0400 Height 172.72 cm Savannah Kan RN [facility] Work Phone: 11-23-2016 15:18-0400 Pulse (Heart Rate) 64 /min [facility] Work Phone: 11-23-2016 15:18-0400 Respiratory Rate 16 /min [facility] Work Phone: 11-23-2016 15:18-0400 Weight 102.97 kg [facility] Work Phone: 11-23-2016 15:18-0400 Weight 102.96 kg [facility] Work Phone: 02-11-2016 13:23-0500 BSA (Body Surface Area) 2.17 m2 [facility] Work Phone: 11-06-2011 08:36-0400 Height 172.72 cm Savannah Kan RN [facility] Work Phone: Procedures Date Procedure Procedure Detail Performing Clinician Start: 11-23-2016 End: 11-23-2016 Follow Up Appt 6 months Feliciano Warren MD Start: 11-23-2016 End: 11-23-2016 MMM Feliciano Warren MD Start: 02-11-2016 End: 02-11-2016 Follow Up Appt 6 months Gege winchester PA-C Work Phone: Start: 02-11-2016 End: 02-11-2016 PFM Gege Miranda PA-C Work Phone: Start: 06-24-2014 End: 06-25-2014 Documentation of current medications Feliciano Warren MD Start: 06-24-2014 End: 12-30-2014 Ecg routine ecg w/least 12 lds w/i&r Feliciano Warren MD Start: 06-24-2014 End: 06-24-2014 Follow Up Appt 6 months Feliciano Warren MD Start: 06-24-2014 End: 11-24-2015 Follow Up Appt Other Feliciano Warren MD Start: 06-24-2014 End: 06-24-2014 MMM Feliciano Warren MD Start: 07-01-2013 End: 11-24-2015 *Hepatic Function Panel Gege winchester PA-C Work Phone: Start: 07-01-2013 End: 11-24-2015 Complete sleep workup (PSG,CPAP as indicated) & Follow up Gege Miranda PA-C Work Phone: Start: 07-01-2013 End: 07-01-2013 Follow Up Appt 6 months Gege winchester PA-C Work Phone: Start: 07-01-2013 End: 11-24-2015 Lipid 1996 panel - Serum or Plasma Gege Miranda PA-C Work Phone: Start: 07-01-2013 End: 11-24-2015 Nuclear stress test -exercise Gege Miranda PA-C Work Phone: Start: 07-01-2013 End: 07-01-2013 PFM Gege Miranda PA-C Work Phone: Start: 12-27-2012 End: 12-27-2012 Ecg routine ecg w/least 12 lds w/i&r Feliciano Warren MD Start: 12-27-2012 End: 12-27-2012 Follow Up Appt 6 months Feliciano Warren MD Start: 12-27-2012 End: 12-30-2014 Follow Up Appt Other Feliciano Warren MD Start: 12-27-2012 End: 12-27-2012 MMM Feliciano Warren MD Start: 11-06-2011 End: 11-06-2011 Ecg routine ecg w/least 12 lds w/i&r Feliciano Warren MD Start: 11-06-2011 End: 07-01-2013 Echocardiography Feliciano Warren MD Start: 11-06-2011 End: 11-06-2011 Follow Up Appt 6 months Feliciano Warren MD Start: 11-06-2011 End: 07-01-2013 Nuclear stress test -exercise Feliciano nolan MD Plan of Treatment Date Care Activity Detail Author Start: 05-28-2017 End: 05-28-2017 Appointment Appointment [facility] Work Phone: Start: 02-06-2017 End: 02-06-2017 Sleep Study, complete Sleep Study, complete [id number] [place], [id number] [facility] Work Phone: Start: 11-23-2016 End: 11-23-2016 *Hepatic Function Panel *Hepatic Function Panel [facility] Phone: Start: 11-23-2016 End: 11-23-2016 Follow Up Appt 6 months Follow Up Appt 6 months [facility] Work Phone: Start: 11-23-2016 End: 11-23-2016 Lipid panel [AGGREGATE] *Lipid Profile CC PCP [facility] Work Phone: Start: 11-23-2016 End: 11-23-2016 MMM MMM [facility] Work Phone: Start: 02-11-2016 End: 02-11-2016 Follow Up Appt 6 months Follow Up Appt 6 months [facility] Work Phone: Start: 02-11-2016 End: 02-11-2016 PFM PFM [facility] Work Phone: Start: 06-24-2014 End: 12-30-2014 Ecg routine ecg w/least 12 lds w/i&r EKG (In office) [facility] Work Phone: Start: 06-24-2014 End: 06-24-2014 Follow Up Appt 6 months Follow Up Appt 6 months [facility] Phone: Start: 06-24-2014 End: 11-24-2015 Follow Up Appt Other Follow Up Appt Other [facility] Phone: Start: 06-24-2014 End: 06-24-2014 MMM MMM [facility] Work Phone: Start: 07-01-2013 End: 11-24-2015 *Hepatic Function Panel *Hepatic Function Panel [facility] Phone: Start: 07-01-2013 End: 07-01-2013 Complete sleep workup (PSG,CPAP as indicated) & Follow up Complete sleep workup (PSG,CPAP as indicated) & Follow up [facility] Phone: Start: 07-01-2013 End: 07-01-2013 Follow Up Appt 6 months Follow Up Appt 6 months [facility] [employer] [facility] Work Phone: Start: 07-01-2013 End: 11-24-2015 Lipid panel [AGGREGATE] *Lipid Profile CC PCP [email or web address] Work Phone: Start: 07-01-2013 End: 07-01-2013 Nuclear stress test -exercise Nuclear stress test -exercise [email or web address] Work Phone: Start: 07-01-2013 End: 07-01-2013 PFM PFM [email or web address] Work Phone: Start: 12-27-2012 End: 12-27-2012 Ecg routine ecg w/least 12 lds w/i&r EKG (In office) [facility] Phone: Start: 12-27-2012 End: 12-27-2012 Follow Up Appt 6 months Follow Up Appt 6 months [employer] [facility] Work Phone: Start: 12-27-2012 End: 12-30-2014 Follow Up Appt Other Follow Up Appt Other [facility] Phone: Start: 12-27-2012 End: 12-27-2012 MMM MMM [facility] Phone: Start: 11-06-2011 End: 11-06-2011 Ecg routine ecg w/least 12 lds w/i&r EKG (In office) [email or web address] Work Phone: Start: 11-06-2011 End: 11-06-2011 Echocardiography Echocardiogram (complete) [facility] Phone: Start: 11-06-2011 End: 11-06-2011 Follow Up Appt 6 months Follow Up Appt 6 months [employer] [facility] Work Phone: Start: 11-06-2011 End: 11-06-2011 Nuclear stress test -exercise Nuclear stress test -exercise [email or web address] Work Phone: Additional Source Comments FOR RECORDS PERTAINING TO PATIENTS WHO ARE OR HAVE BEEN ENROLLED IN A CHEMICAL DEPENDENCY/SUBSTANCEABUSE PROGRAM, SOME INFORMATION MAY BE OMITTED. This clinical summary was aggregated from multiple sources. Caution should be exercised in using it in the provision of clinical care. This summary normalizes information from multiple sources, and as a consequence, information in this document may materially change the coding, format and clinical context of patient data. In addition, data may be omitted in some cases. CLINICAL DECISIONS SHOULD BE BASED ON THE PRIMARY CLINICAL RECORDS. [employer] [facility]. provides no warranty or guarantee of the accuracy or completeness of information in this document.
[2023-05-23 07:52] LABS: Absolute Neutrophil Count 2.2 X10^3/uL (2.0-7.7); Basophil# 0.01 X10^3/uL; Basophil% 0.2 % (0-1); Eosinophil# 0.13 X10^3/uL; Eosinophils% 2.8 % (0-5); Hematocrit 47.3 % (40-54); Hemoglobin 15.4 g/dL (13.0-16.5); Lymphocyte % 38.7 % (19-41); Mean Corp Hgb Conc 32.6 g/dL (32-36); Mean Corpuscular Hgb 30.6 pg (27.0-32.0); Mean Corpuscular Volume 93.8 fL (80-94); Mean Platelet Vol. 11.3 fl (6.2-12.0); Monocyte# 0.47 X10^3/uL; Monocyte% 10.1 % (0-10); NRBC Flagged by Analyzer 0 % (0-5); Neutrophil # 2.23 X10^3/uL (2.7-7.7); Platelet Count 119 K/mm3 (150-450); RBC Distribution Width CV 12.8 % (11.6-14.6); RBC Distribution Width SD 43.8 fl (35.1-43.9); Red Blood Count 5.04 M/mm3 (4.6-6.2); White Blood Count 4.7 K/mm3 (4.4-11.0)
[2023-05-23 08:26] LABS: AST(SGOT) 20 U/L (15-37); Alanine Aminotransfer ALT/SGPT 26 U/L (16-61); Albumin, Serum 3.5 g/dL (3.2-5.0); Alkaline Phosphatase 85 U/L (45-117); Anion Gap 3 (5-15); BUN 17 mg/dL (7-18); BUN/Creat Ratio 22.7 RATIO (10-20); Calcium,Total 9.3 mg/dL (8.5-10.1); Chloride 111 mmol/L (98-107); Creatinine, Serum 0.75 mg/dL (0.70-1.30); EST Glomerular Filtration Rate 113 mL/min (>60); Est Glom Filt Rate - Afr Amer 137 mL/min (>60); Globulin 3.6 g/dL (2.2-4.2); Glucose 151 mg/dL (74-106); Lipase 41 U/L (13-75); PSA,Total- Diagnostic 0.14 ng/mL (0.0-4.0); Protein, Total 7.1 g/dL (6.4-8.2); Sodium Level 140 mmol/L (136-145); Thyroid Stim Hormone (TSH) 1.78 uIU/mL (0.358-3.74)
[2023-05-23 08:59] LABS: Hemoglobin A1c 6.3 % (3.8-5.6)
[2023-05-30 12:10] LABS: Testosterone, % Free 2.53 % (1.50-4.20); Testosterone, Free 9.49 ng/dL (5.00-21.00); Testosterone, Total 375 ng/dL (264-916)
== END | disposition home or self-care (01) ==
LOC: LAB 07:06
PROVIDERS: PCP Family Medicine; Referring Provider Family Medicine; Visit Provider Family Medicine
DX: E11.40 Type 2 diabetes mellitus with diabetic neuropathy, unspecified (principal); N52.9 Male erectile dysfunction, unspecified; R68.82 Decreased libido
CPT/HCPCS: 36415; 80053; 83036; 83690; 84153; 84402; 84403; 84443; 85025

== ENCOUNTER → 2024-01-17 | Outpatient (CLI) | payer OTHER, SELFPAY ==
--- NOTE | 2024-01-17 07:05 | ECHOD_ITS ---
Reason For Study: AORTIC STENOSIS Procedure This was a 2D Doppler, Color Flow transthoracic echocardiogram. Myocardial strain analysis was performed in this exam to aid in the assessment of cardiac function. The study was technically difficult. Exam performed in department. Left Ventricle Normal LV size. Mild concentric left ventricular hypertrophy. Left ventricular systolic function is normal. The left ventricular ejection fraction is 60 %. Stage 1 diastolic dysfunction. No regional wall motion abnormalities noted. Right Ventricle Normal right ventricle. Normal systolic function. Atria The left atrium is mildly enlarged. Normal right atrium. Mitral Valve Normal mitral valve. Aortic Valve Trisinus/trileaflet aortic valve. Moderate focal aortic valve calcification. Peak aortic valve gradient 48 mmHg. Mean aortic valve gradient 29 mmHg. Moderate aortic stenosis. Pulmonic Valve Normal pulmonic valve. Great Vessels Normal aortic root. The pulmonary artery is normal size. Inferior vena cava collapse with respiration. Pericardium/Pleural No pericardial effusion. MMode/2D Measurements & Calculations LVIDd: 5.1 cm IVSd: 1.2 cm LVOT diam: 2.1 cm LVIDs: 3.3 cm LVPWd: 1.2 cm LVOT area: 3.4 cm2 RVDd: 3.7 cm FS: 35.3 % asc Aorta Diam: 3.8 cm LAV(MOD-bp): 68.5 ml LVAd ap4: 28.7 cm2 LAV(MOD-bp) Indexed: 30.5 ml/m2 LVLd ap4: 8.1 cm LAV(MOD-sp2): 77.9 ml EDV(MOD-sp4): 83.9 ml LAV(MOD-sp4): 59.3 ml EDV(sp4-el): 86.4 ml LVAs ap4: 16.2 cm2 LVLs ap4: 6.9 cm ESV(MOD-sp4): 33.2 ml ESV(sp4-el): 32.2 ml EF(MOD-sp4): 60.4 % EF(sp4-el): 62.7 % SV(MOD-sp4): 50.7 ml SV(MOD-sp2): 41.9 ml LVAd ap2: 26.0 cm2 LVLd ap2: 7.9 cm EDV(MOD-sp2): 71.9 ml EDV(sp2-el): 72.1 ml LVAs ap2: 15.3 cm2 LVLs ap2: 6.9 cm ESV(MOD-sp2): 30.0 ml ESV(sp2-el): 29.0 ml EF(MOD-sp2): 58.3 % SV(sp4-el): 54.2 ml Ao sinus diam: 3.[address] Junction: 3.0 cm LA A4 area: 21.6 cm2 LA dimension(2D): 4.3 cm RA A4 area: 14.2 cm2 TAPSE: 2.6 cm Time Measurements MV dec time: 0.17 sec Doppler Measurements & Calculations MV E max cyrus: 103.9 cm/sec Lat Peak E' Cyrus: 9.1 cm/sec Med Peak E' Cyrus: 7.7 cm/sec MV A max cyrus: 126.6 cm/sec E/E' lat: 11.4 E/E' med: 13.5 MV E/A: 0.82 MV V2 max: 128.3 cm/sec Ao V2 max: 345.4 cm/sec MV max P.6 mmHg MV dec slope: 600.5 cm/sec2 Ao max P.8 mmHg MV V2 mean: 77.3 cm/sec Ao V2 mean: 253.4 cm/sec MV mean P.7 mmHg Ao mean P.4 mmHg MV V2 VTI: 34.4 cm Ao V2 VTI: 88.4 cm AV (velocity ratio): 0.33 MVA(VTI): 2.9 cm2 YAMILE(I,D): 1.1 cm2 YAMILE(V,D): 1.1 cm2 LV V1 max: 107.5 cm/sec SV(LVOT): 98.9 ml PA V2 max: 74.2 cm/sec LV V1 max P.6 mmHg PA max PG (full): 0.87 mmHg LV V1 mean P.1 mmHg LV V1 mean: 84.6 cm/sec LV V1 VTI: 29.0 cm ECHO/Echo Complete Interpretation Summary Normal LV size. Left ventricular systolic function is normal. The left ventricular ejection fraction is 60 %. The left atrium is mildly enlarged. Stage 1 diastolic dysfunction. Moderate focal aortic valve calcification. Mean aortic valve gradient 29 mmHg. Moderate aortic stenosis. The global longitudinal strain is normal. The global longitudinal strain = -17. 6 % (normal). Ordering Physician: Franco Vidal Referring Physician: Austin Lubin MD Performed By: Stephenie Ford RDCS
--- OUTSIDE RECORDS SUMMARY | 2024-01-17 07:12 | XMS RPT_ITS | CCD ---
Author Organization [facility] Care Team Providers Care Station Usher Name Role Phone Savannah Kan RN Unavailable Unavailable Savannah Kan RN Unavailable Unavailable Allergies Allergy Classification Reported Allergen(s) Allergy Type Date of Onset Reaction(s) Facility (2 sources) penicillin Drug Allergy 11-01-2011 Dimple Dough Work Phone: Medications Completed/Discontinued Medications Medication Drug Class(es) Dates Sig (Normalized) Sig (Original) aspirin 81 mg oral tablet (4 sources) Nonsteroidal Anti-inflammatory Drug Start: 11-01-2011 take 1 tablet by mouth once daily ASPIRIN 81 MG TABS One tablet by mouth daily -enteric coated ASPIRIN [id number] Kelly Hackett Start: 11-01-2011 take 1 tablet by daksha th once daily ASPIRIN EC 81 MG TBEC One tablet by mouth daily ASPIRIN [id number] Gege Mclean RN dapagliflozin 5 mg oral tablet (4 sources) Sodium-Glucose Cotransporter 2 Inhibitor Start: 02-11-2016 End: 11-23-2016 take 1 tablet by mouth once daily FARXIGA 5 MG TABS One tablet by mouth daily DAPAGLIFLOZIN PROPANEDIOL [id number] Feliciano Warren MD glipiZIDE 5 mg oral tablet (6 sources) Sulfonylurea Start: 11-06-2011 take 1 tablet by mouth twice daily GLIPIZIDE 5 MG TABS One tablet by mouth twice daily GLIPIZIDE [id number] Feliciano Warren MD LIRAGLUTIDE SOPN (4 sources) GLP-1 Receptor Agonist Start: 06-24-2014 End: 02-11-2016 VICTOZA SOPN 1.6 daily LIRAGLUTIDE SOPN [id number] Gege Miranda PA-C Start: 06-24-2014 VICTOZA SOPN 1 .6 daily LIRAGLUTIDE SOPN [id number] Feliciano Warren MD lisinopril 5 mg oral tablet (2 sources) Angiotensin Converting Enzyme Inhibitor Start: 11-01-2011 take 1 tablet by mouth once daily LISINOPRIL 5 MG TABS One tablet by mouth daily LISINOPRIL [id number] Clovis Willingham PRIMARY SPECIAL EDUCATOR-C metFORMIN hydrochloride 500 mg oral tablet (2 sources) Biguanide Start: 11-23-2016 take 1 tablet by mouth twice daily METFORMIN HCL 500 MG TABS One tablet by mouth twice daily METFORMIN HCL [id number] Feliciano Warren MD metFORMIN hydrochloride 500 mg / SITagliptin 50 mg oral tablet (4 sources) Biguanide, Dipeptidyl Peptidase 4 Inhibitor Start: 11-06-2011 End: 11-23-2016 take 1 tablet by mouth twice daily JANUMET 50-500 MG TABS One tablet by mouth twice daily SITAGLIPTIN-METFO RMIN HCL [id number] Feliciano Warren MD metoprolol tartrate 50 mg oral tablet (4 sources) beta-Adrenergic Jayson Start: 11-06-2011 take 1 tablet by mouth twice daily METOPROLOL TARTRATE 50 MG TABS One tablet by mouth twice daily METOPROLOL TARTRATE [id number] Feliciano Warren MD Start: 11-01-2011 METOPROLOL TAR TRATE 50 MG TABS 1/2 tablet 2 X daily METOPROLOL TARTRATE [id number] Kelly Hackett pravastatin sodium 40 mg oral tablet (2 sources) HMG-CoA Reductase Inhibitor Start: 11-01-2011 take 1 tablet by mouth at bedtime PRAVACHOL 40 MG TABS One tablet by mouth at bedtime. PRAVASTATIN SODIUM [id number] Feliciano Warren MD vitamin b 12 0.5 mg oral tablet (4 sources) Vitamin B12 Start: 11-06-2011 End: 07-01-2013 take 1 tablet by mouth once daily VITAMIN B-12 500 MCG TABS One tablet by mouth daily CYANOCOBALAMIN [id number] Feliciano Warren MD Problems Active Problems Problem Classification Problem Date Documented Date Episodic/Chronic Acute myocardial infarction (2 sources) Non-ST elevation (NSTEMI) myocardial infarction; Translations: [Non-ST elevation (NSTEMI) myocardial infarction] Onset: 11-01-2011 11-01-2011 Chronic Coronary atherosclerosis and other heart disease (6 sources) Atherosclerotic heart disease of [place] coronary artery without angina pectoris; Translations: [Angina [...] (2 sources) Long-term drug therapy; Translations: [Other intermediate accountant (current) drug therapy] Onset: 11-01-2011 11-01-2011 Past or Other Problems Problem Classification Problem Date Documented Da te Episodic/Chronic Coronary atherosclerosis and other heart disease (2 sources) Coronary angioplasty status; Translations: [Coronary angioplasty status] Onset: 11-01-2011 11-01-2011 Episodic Other lower respiratory disease (2 sources) Snoring; Translations: [Snoring] Onset: 02-06-2017 02-06-2017 Episodic Results Test Name Value Interpretation Reference Range Facil ity Office Visiton 11-23-2016 Dietary management education, guidance, and counseling (procedure) yes Invalid Interpretation Code [facility] Work Phone: Documentation of current medications (procedure) Done Invalid Interpretation Code [facility] Work Phone: Fall risk assessment No Invalid Interpretation Code [facility] Work Phone: Tobacco use CPHS Never smoker Invalid Interpretation Code Dimple Dough Work Phone: Replaced Document: Lenora WARREN Observationson 02-11-2016 EKG QRS axis -4 deg Invalid Interpretation Code [facility] Work Phone: Interpretation Sinus Rhythm -First degree A-V block Margarito = [id number] Invalid Interpretation Code [facility] Work Phone: P [place] 50 deg Invalid Interpretation Code [facility] Work Phone: CO Interval 226 ms Invalid Interpretation Code [facility] Work Phone: Pulse (Heart Rate) 70 /min Invalid Interpretation Code [facility] Work Phone: QRS Duration 92 ms Invalid Interpretation Code [facility] Work Phone: QT Interval new path ms Invalid Interpretation Code [facility] Work Phone: QTc Ye 393 ms Invalid Interpretation Code Dimple Dough Work Phone: T [place] 28 deg Invalid Interpretation Code [facility] Phone: Clinical Lists Update: [facility] gastroenterology nurse 12-02-2015 Left ventricular Ejection fraction 55 % Invalid Interpretation Code Dimple Dough Work Phone: Clinical Lists Update: [facility] gastroenterology nurse 11-18-2015 Alanine aminotransferase (ALT) 21 U/L Invalid Interpretation Code [facility] Work Phone: Albumin 4.1 g/dL Invalid Interpretation Code [facility] Work Phone: Alkaline phosphatase (ALP) 75 U/L Invalid Interpretation Code [facility] Work Phone: Anion gap 7.0 mmol/L Invalid Interpretation Code [facility] Work Phone: Aspartate aminotransferase (AST) 12 U/L Invalid Interpretation Code [facility] Work Phone: Bilirubin (total) 1.2 mg/dL High [facility] Work Phone: BUN/Creatinine Ratio 13 mg/mg Invalid Interpretation Code [facility] Work Phone: Calcium 9.2 mg/dL Invalid Interpretation Code [facility] Work Phone: Chloride 102 mmol/L Invalid Interpretation Code [facility] Work Phone: Cholesterol 129 mg/dL Low [facility] Work Phone: CO2 26 mmol/L Invalid Interpretation Code [facility] Work Phone: Creatinine 0.7 mg/dL Invalid Interpretation Code [facility] Work Phone: Glucose mass conc 306 mg/dL High [facility] Work Phone: HDL Cholesterol 28 mg/dL Low [facility] Work Phone: LDL Cholesterol 37 mg/dL Invalid Interpretation Code [facility] Work Phone: Potassium molar conc 4.9 mmol/L Invalid Interpretation Code [facility] Work Phone: Protein 6.3 g/dL Invalid Interpretation Code [facility] Work Phone: Sodium 135 mmol/L Low [facility] Work Phone: Triglyceride 319 mg/dL High [facility] Work Phone: Urea nitrogen 9 mg/dL Invalid Interpretation Code [facility] Work Phone: Office Visiton 06-24-2014 cardiac risk group C Invalid Interpretation Code [facility] Work Phone: General cardiovascular disease 10Y risk [#] [place]D'Agost[place] N/A Invalid Interpretation Code [facility] Work Phone: Office Visiton 12-27-2012 Alcoholism counseling (procedure) no Invalid Interpretation Code [facility] Work Phone: Replaced Document: Midmark E CG Observationson 12-27-2012 Pulse (Heart Rate) 386 ms Invalid Interpretation Code [facility] Work Phone: Vital Signs Date Time Vital Sign Value Performing Clinician Lesli trinidad 11-23-2016 15:18-0400 BMI (Body Mass Index) 34.51 kg/m2 Savannah Kan RN [facility] Work Phone: 11-23-2016 15:18-0400 BP Diastolic 74 mm[Hg] Savannah Kan RN [facility] Work Phone: 11-23-2016 15:18-0400 BP Systolic 126 mm[Hg] Savannah Bakery LES [facility] Work Phone: 11-23-2016 15:18-0400 Height 172.72 cm Savannah [facility] Work Phone: 11-23-2016 15:18-0400 Pulse [...] Phone: 11-06-2011 08:36-0400 Height 172.72 cm Savannah [facility] Work Phone: Procedures Date Procedure [...] Author Start: 05-28-2017 End: 05-28-2017 Appointment Appointment [facility] Work Phone: Start: 02-06-2017 End: 02-06-2017 Sleep Study, complete Sleep Study, complete [address] [place], [address] [facility] Work Phone: Start: 11-23-2016 End: 11-23-2016 *Hepatic Function Panel *Hepatic Function Panel [facility] Work Phone: Start: 11-23-2016 End: 11-23-2016 Follow Up Appt 6 months Follow Up Appt 6 months [facility] Work Phone: Start: 11-23-2016 End: 11-23-2016 Lipid panel [AGGREGATE] *Lipid Profile CC PCP [facility] Work Phone: Start: 11-23-2016 End: 11-23-2016 MMM MMM [facility] Work Phone: Start: 02-11-2016 End: 02-11-2016 Follow Up Appt 6 months Follow Up Appt 6 months [facility] Work Phone: Start: 02-11-2016 End: 02-11-2016 PFM PFM [facility] Work Phone: Start: 06-24-2014 End: 12-30-2014 Ecg routine ecg w/least 12 lds w/i&r EKG (In office) [facility] Dough Work Phone: Start: 06-24-2014 End: 06-24-2014 Follow Up Appt 6 months Follow Up Appt 6 months [facility] Work Phone: Start: 06-24-2014 End: 11-24-2015 Follow Up Appt Other Follow Up Appt Other [facility] Dough Work Phone: Start: 06-24-2014 End: 06-24-2014 MMM MMM [facility] Work Phone: Start: 07-01-2013 End: 11-24-2015 *Hepatic Function Panel *Hepatic Function Panel [facility] Work Phone: Start: 07-01-2013 End: 07-01-2013 Complete sleep workup (PSG,CPAP as indicated) & Follow up Complete sleep workup (PSG,CPAP as indicated) & Follow up Dimple Dough Work Phone: Start: 07-01-2013 End: 07-01-2013 Follow Up Appt 6 months Follow Up Appt 6 months [facility] Work Phone: Start: 07-01-2013 End: 11-24-2015 Lipid panel [AGGREGATE] *Lipid Profile CC PCP Dimple Dough Work Phone: Start: 07-01-2013 End: 07-01-2013 Nuclear stress test -exercise Nuclear stress test -exercise Dimple Dough Work Phone: Start: 07-01-2013 End: 07-01-2013 PFM PFM [facility] Dough Work Phone: Start: 12-27-2012 End: 12-27-2012 Ecg routine ecg w/least 12 lds w/i&r EKG (In office) Dimple Dough Work Phone: Start: 12-27-2012 End: 12-27-2012 Follow Up Appt 6 months Follow Up Appt 6 months [facility] Work Phone: Start: 12-27-2012 End: 12-30-2014 Follow Up Appt Other Follow Up Appt Other [facility] Work Phone: Start: 12-27-2012 End: 12-27-2012 MMM MMM [facility] Work Phone: Start: 11-06-2011 End: 11-06-2011 Ecg routine ecg w/least 12 lds w/i&r EKG (In office) [facility] Work Phone: Start: 11-06-2011 End: 11-06-2011 Echocardiography Echocardiogram (complete) [facility] Work Phone: Start: 11-06-2011 End: 11-06-2011 Follow Up Appt 6 months Follow Up Appt 6 months [facility] Work Phone: Start: 11-06-2011 End: 11-06-2011 Nuclear stress test -exercise Nuclear stress test -exercise [facility] Work Phone: Additional Source Comments FOR RECORDS [...] BE BASED ON THE PRIMARY CLINICAL RECORDS. [employer] provides no warranty or guarantee of the accuracy or completeness of information in this document.
--- NOTE | 2024-01-17 13:33 | STRESSREP ---
Stress Test Report Pharmacologic myocardial perfusion stress test. 58-year-old man with a history of chest pain Resting EKG demonstrates sinus rhythm with a rate of 63 bpm. Resting blood pressure is 124/70 mmHg. 0.4 mg of regadenoson was infused per usual protocol followed by rapid intravenous saline flush injection. Continuous EKG monitoring was performed. The maximum heart rate was 77 bpm which was 48 %of max impacted heart rate the maximum workload was 1 metabolic equivalent. At rest there were no ST or T wave changes noted to suggest ischemia and at peak infusion nonspecific ST changes were noted which did not meet the criteria for ischemia. No clinical angina is noted. The final blood pressure was 136/80 mmHg. Myocardial perfusion protocol. 9 point mCi of technetium 99m sestamibi was injected at rest. 0.4 mg of regadenoson was infused per usual protocol. At peak infusion 30.3 mCi of technetium 99m sestamibi was injected stress images were obtained stress and rest images were reconstructed and compared in the short axis vertical long and horizontal long axis. Gated images were also obtained. Perfusion SPECT analysis: Review of the stress images demonstrate normal uptake of tracer noted in all areas of the myocardium. The resting images similar demonstrated normal uptake of tracer noted in all areas of the myocardium. No areas of reversibility are noted to suggest ischemia and no previous infarct is noted. Gated SPECT analysis: The gated ejection fraction is 54%. Conclusion: Normal pharmacologic myocardial perfusion stress test. Preserved ejection fraction.
== END | disposition home or self-care (01) ==
LOC: CVS 06:53
PROVIDERS: PCP Family Medicine; Referring Provider Nurse Practitioner Family; Visit Provider Nurse Practitioner Family
DX: R07.9 Chest pain, unspecified (principal); I25.10 Atherosclerotic heart disease of native coronary artery without angina pectoris; I06.2 Rheumatic aortic stenosis with insufficiency; Z95.5 Presence of coronary angioplasty implant and graft
CPT/HCPCS: 78452; 93017; 93306; A9500; A4216; J2785

== ENCOUNTER → 2024-07-18 | Outpatient (CLI) | payer OTHER, SELFPAY ==
[2024-07-18 17:46] LABS: Absolute Neutrophil Count 2.6 X10^3/uL (2.0-7.7); Eosinophil# 0.12 X10^3/uL; Eosinophils% 2.2 % (0-5); Hematocrit 44.1 % (40-54); Hemoglobin 15.2 g/dL (13.0-16.5); Mean Corp Hgb Conc 34.5 g/dL (32-36); Mean Corpuscular Hgb 31.7 pg (27.0-32.0); Mean Corpuscular Volume 92.1 fL (80-94); Mean Platelet Vol. 11.5 fl (6.2-12.0); Monocyte# 0.51 X10^3/uL; Monocyte% 9.5 % (0-10); NRBC Flagged by Analyzer 0 % (0-5); Neutrophil # 2.64 X10^3/uL (2.7-7.7); Neutrophil % 49.1 % (47-70); Platelet Count 143 K/mm3 (150-450); RBC Distribution Width CV 12.8 % (11.6-14.6); RBC Distribution Width SD 42.7 fl (35.1-43.9); Red Blood Count 4.79 M/mm3 (4.6-6.2); White Blood Count 5.4 K/mm3 (4.4-11.0)
[2024-07-18 18:16] LABS: ALB/GLOB Ratio 1.5 RATIO (0.9-2.4); AST(SGOT) 18 U/L (<=37); Alanine Aminotransfer ALT/SGPT 12 U/L (<=46); Albumin, Serum 4.2 g/dL (3.4-4.8); Alkaline Phosphatase 68 U/L (40-129); Anion Gap 12 (5-15); BUN 17 mg/dL (4-19); BUN/Creat Ratio 22.8 RATIO (10-20); Calcium,Total 9.3 mg/dL (7.6-11.0); Carbon Dioxide 23.7 mmol/L (21.0-32.0); Chloride 103 mmol/L (98-108); Creatinine, Serum 0.73 mg/dL (0.70-1.20); EST Glomerular Filtration Rate 104 (>60); Globulin 2.7 g/dL (2.2-4.2); Glucose 158 mg/dL (70-99); Potassium 3.8 mmol/L (3.3-5.1); Protein, Total 6.9 g/dL (5.9-8.4); Sodium Level 138 mmol/L (133-145); Total Bilirubin 1.67 mg/dL (0.00-1.30)
[2024-07-18 18:45] LABS: Hemoglobin A1c 7.5 % (<=5.6)
[2024-07-18 21:07] LABS: Microalbumin,Random Urine < 12.0 mg/L (NO RANGE EST.); Microalbumin:Creatinine Ratio UNABLE TO CALCULATE mg/g CRE
== END | disposition home or self-care (01) ==
LOC: MFPLAB 14:05
PROVIDERS: PCP Family Medicine; Referring Provider Family Medicine; Visit Provider Family Medicine
DX: E11.40 Type 2 diabetes mellitus with diabetic neuropathy, unspecified (principal); E66.01 Morbid (severe) obesity due to excess calories
CPT/HCPCS: 36415; 80053; 82043; 82570; 83036; 85025